=== PATIENT | female | born 1980 ===

== ENCOUNTER 2020-03-20 12:01 | Outpatient (REF) | payer OTHER, SELFPAY ==
[2020-03-20 13:23] LABS: MANUAL DIFF FLAG NO
[2020-03-20 13:35] LABS: Basophils Percent Auto 0.4 % (0-2); Eosinophils Absolute Auto 0.1 X10*3/uL (0.0-0.4); Eosinophils Percent Auto 0.7 % (0-4); Hematocrit 40.1 % (37-47); Hemoglobin 13.1 g/dl (12.0-16.0); Imm Gran Abs Auto 0.01 X10*3/uL (0.00-0.03); Imm Gran Pct Auto 0.1 % (0.0-0.4); Lymphocytes Absolute Auto 2.1 X10*3/uL (1.2-4.9); Lymphocytes Percent Auto 28.2 % (20-40); Mean Corpuscular HGB Conc 32.7 g/dl (31.0-35.0); Mean Platelet Volume 10.7 fL (9.4-12.3); Monocytes Absolute Auto 0.5 X10*3/uL (0.1-1.2); Monocytes Percent Auto 6.5 % (2-11); Neutrophils Absolute Auto 4.8 X10*3/uL (2.0-8.3); Neutrophils Percent Auto 64.1 % (45-73); Platelet Count 220 X10*3/uL (160-400); Red Blood Count 4.36 X10*6/uL (4.20-5.50); Red Cell Distribution Width 12.1 % (11.0-16.0); White Blood Count 7.5 X10*3/uL (4.8-10.8)
[2020-03-20 13:48] LABS: Estimated Average Glucose 103 mg/dL; Hemoglobin A1c % 5.2 %
[2020-03-20 14:08] LABS: Alanine Aminotransferase 18 U/L (0-31); Alkaline Phosphatase 115 U/L (39-117); Anion Gap 13 (12-20); Aspartate Amino Transferase 20 U/L (5-31); Bilirubin Total 0.5 mg/dL (0.0-1.0); Blood Urea Nitrogen 15 mg/dL (9-16); C Reactive Protein 1.18 mg/dL (< or = 0.50); Calcium 8.9 mg/dL (8.4-10.2); Carbon Dioxide 29 mmol/L (22-29); Chloride 104 mmol/L (96-108); Cholesterol 209 mg/dL; Estimated Glomerular Filt Rate > 60; Glucose Random 75 mg/dL (60-115); HDL Cholesterol 56 mg/dL; Iron 112 mcg/dL (30-160); LDL Cholesterol Calculated 140 mg/dl; Percent Iron Saturation 32 % (15-50); Potassium 3.9 mmol/l (3.3-5.1); Sodium 142 mmol/L (135-145); Total Iron Binding Capacity 346 mcg/dL (228-428); Triglycerides 65 mg/dL; Unsaturated Iron Binding 234 ug/dL
[2020-03-20 14:31] LABS: Ferritin 26 ng/mL (10-122); TSH reflex Free T4 0.88 mIU/mL (0.32-4.0); Vitamin D 25-OH Total 16.5 ng/mL (>30)
[2020-03-20 14:40] LABS: Folate 19.8 ng/mL (> or = 4.0); Vitamin B12 670 pg/mL (200-900)
[2020-03-23 19:11] LABS: Calcium (PTHI) 9.3 mg/dL (8.6-10.2); Insulin Level Total 3.4 uIU/mL; PTHI 42 pg/mL (14-64)
[2020-03-23 19:12] LABS: Zinc 69 mcg/dL (60-130)
[2020-03-25 17:32] LABS: Vitamin A 38 mcg/dL (38-98)
[2020-03-26 11:42] LABS: Vitamin B1 11 nmol/L (8-30)
== END 2020-03-20 12:02 | disposition home or self-care (01) ==
LOC: HO.LAB 12:01
PROVIDERS: PCP Internal Medicine; Visit Provider Physician Assistant
DX: Z98.84 Bariatric surgery status (principal)
CPT/HCPCS: 36415; 80053; 80061; 82306; 82607; 82728; 82746; 83036; 83525; 83540; 83970; 84425; 84443; 84590; 84630; 85025; 86140

== ENCOUNTER 2020-04-27 16:20 | Outpatient (REF) | payer OTHER, SELFPAY | END 2020-04-27 16:21 | disposition home or self-care (01) | LOC: HO.LAB 16:20 | PROVIDERS: Visit Provider Internal Medicine | DX: Z20.828 Contact with and (suspected) exposure to other viral communicable diseases (principal) | CPT/HCPCS: C9803; U0003 ==

== ENCOUNTER → 2020-05-21 08:18 | Outpatient (BNVA) | payer OTHER, SELFPAY | PROVIDERS: PCP Internal Medicine; Visit Provider Physician Assistant | DX: Z76.89 Persons encountering health services in other specified circumstances (principal) ==

== ENCOUNTER → 2020-06-11 08:11 | Outpatient (BNVA) | payer OTHER, SELFPAY | PROVIDERS: PCP Internal Medicine; Visit Provider Dietitian, Registered ==

== ENCOUNTER → 2020-08-12 08:11 | Outpatient (BNVA) | payer OTHER, SELFPAY | PROVIDERS: PCP Internal Medicine; Visit Provider Physician Assistant ==

== ENCOUNTER 2020-09-21 13:50 | Outpatient (REF) | payer OTHER, SELFPAY ==
--- NOTE | ~2020-09-21 | MM_ITS ---
EXAMINATION: MM DIAGNOSTIC DIGITAL BREAST TOMOSYNTHESIS, BILATERAL US DIAGNOSTIC ULTRASOUND BREAST, RIGHT CLINICAL INFORMATION: 40-year-old lactating breast-feeding patient with recent right areolar/periareolar pain. No symptoms today. No palpable mass. No known family history breast cancer. No prior mammography. The lifetime risk of breast cancer based on the Tyrer-Cuzick Model is 10%. COMPARISON: None (current study represents initial baseline exam). TECHNIQUE: Digital breast tomosynthesis is performed in both the craniocaudal and mediolateral oblique views along with computer-aided detection (CAD). Synthesized 2D images are generated from the tomosynthesis. Patient is breast-fed within 45 minutes of breast imaging. Ultrasound right breast is targeted to the retroareolar and periareolar region. Additional imaging also performed along the medial breast in area of prominent venous drainage. Grayscale imaging and color Doppler are performed without and with harmonics. FINDINGS: The breasts are heterogeneously dense, which may obscure small masses (ACR BI-RADS breast composition Category c). There are no significant masses, abnormal calcifications, or other abnormalities. No skin thickening or coarsening of the Pablo's ligaments. There is incidental prominent draining vein medial right breast. The axilla are unremarkable. Ultrasound demonstrates mildly prominent subareolar ducts up to 4 mm consistent with the lactating state. There is no intraductal lesion or cystic or solid mass. No skin thickening or edema tracking in the soft tissues. Additional imaging medial right breast shows patent prominent draining vein with normal color flow. No thrombophlebitis. Results are discussed with the patient at time of visit. Patient notes no symptoms today. Management options discussed in the event symptoms return. MM/MM tomosynthesis diagnostic BI IMPRESSION: 1. No mammographic evidence of malignancy or inflammatory changes.. 2. Unremarkable right breast ultrasound. ASSESSMENT: BI-RADS 2: Benign RECOMMENDATION: 1. Patient should be managed based on the clinical impression. 2. Otherwise, routine annual screening mammography. This patient's information was entered into a reminder system with a target due date for their next mammogram.
== END 2020-09-21 13:51 | disposition home or self-care (01) ==
LOC: HO.MAMMO 13:50
PROVIDERS: Visit Provider Internal Medicine
DX: N64.4 Mastodynia (principal)
CPT/HCPCS: 76642; 77062; 77066

== ENCOUNTER 2020-10-27 12:42 | Outpatient (REF) | payer OTHER, SELFPAY ==
[2020-10-27 14:41] LABS: Alanine Aminotransferase 12 U/L (0-31); Albumin Level 3.9 g/dL (3.5-5.0); Alkaline Phosphatase 96 U/L (39-117); Anion Gap 11 (12-20); Aspartate Amino Transferase 18 U/L (5-31); Bilirubin Total 0.6 mg/dL (0.0-1.0); Blood Urea Nitrogen 17 mg/dL (9-16); Calcium 9.5 mg/dL (8.4-10.2); Carbon Dioxide 29 mmol/L (22-29); Chloride 107 mmol/L (96-108); Cholesterol 169 mg/dL; Estimated Glomerular Filt Rate > 60; Glucose Fasting 73 mg/dL (60-99); HDL Cholesterol 47 mg/dL; LDL Cholesterol Calculated 111 mg/dl; Potassium 4.5 mmol/L (3.3-5.1); Sodium 142 mmol/L (135-145); Total Protein 6.6 g/dL (6.5-8.0); Triglycerides 59 mg/dL
[2020-10-27 15:04] LABS: Vitamin D 25-OH Total 18.1 ng/mL (>30)
== END 2020-10-27 12:43 | disposition home or self-care (01) ==
LOC: HO.LAB 12:42
PROVIDERS: Physician Assistant; PCP Internal Medicine; Visit Provider Internal Medicine
DX: E78.5 Hyperlipidemia, unspecified (principal); E66.3 Overweight; Z90.3 Acquired absence of stomach [part of]
CPT/HCPCS: 36415; 80053; 80061; 82306

== ENCOUNTER 2020-10-29 17:18 | Inpatient (IN) | payer OTHER, SELFPAY ==
--- NOTE | ~2020-10-29 | CT_ITS ---
EXAMINATION: CT HEAD WITHOUT CONTRAST (STROKE PROTOCOL) CLINICAL INFORMATION: Stroke protocol. COMPARISON: Previous head CT most recent October 2017 TECHNIQUE: Contiguous axial imaging was performed from the skull base to vertex without intravenous administration of contrast. This CT examination was performed using dose optimization techniques as appropriate, variously including the following: *Automated exposure control *Adjustment of mA and/or kV according to patient size (this includes techniques or standardized protocols for targeted exams where dose is matched to indication/reason for exam; i.e. extremities or head) *Use of iterative reconstruction technique DLP: 648 mGy-cm FINDINGS: There is no intracranial hemorrhage, hematoma, or extra-axial fluid collection. The ventricles are normal in size. There is no hydrocephalus, edema, or mass effect. The sanders-white matter differentiation appears symmetric. There is no acute infarct or mass lesion. The calvarium appears intact. There is no pneumocephalus or orbital emphysema. The visualized sinuses and middle ears and mastoid air cells show no significant mucosal thickening. There are no air-fluid levels. CT/CT head for stroke IMPRESSION: No acute intracranial pathology. This critical result was discussed with Placido Kc at 6:25 PM hours on 10/29/2020. It was ascertained that the content and urgency of the report was understood at the time of direct communication.
--- NOTE | ~2020-10-29 | CT_ITS ---
EXAMINATION: CT ANGIOGRAM OF THE HEAD CT ANGIOGRAM OF THE NECK CLINICAL INFORMATION: Left arm weakness and headache. COMPARISON: CT scan of the head also performed 10/29/2020. TECHNIQUE: Test bolus series followed by intravenous administration 70 mL of Omnipaque 350. Helical imaging was performed in the axial plane from the mediastinum to the skull vertex. A postcontrast axial CT scan of the head was obtained. The degree of stenosis is based off NASCET criteria. The data was processed at the instrument technologist workstation for generation of MIP images. Three-dimensional volume rendered reformatted images were also generated at an offline 3-D workstation. This CT examination was performed using dose optimization techniques as appropriate, variously including the following: *Automated exposure control *Adjustment of mA and/or kV according to patient size (this includes techniques or standardized protocols for targeted exams where dose is matched to indication/reason for exam; i.e. extremities or head) *Use of iterative reconstruction technique DLP: 1412 mGy-cm. FINDINGS: CT Head: There is no evidence of acute intracranial hemorrhage or territorial infarction. No abnormal mass-effect or midline shift is seen. Zarate to white matter differentiation is well preserved. No extra-axial fluid collections are identified. There is no abnormal enhancement. The ventricles are normal in size. There is a small cavum septum pellucidum. There is no abnormal attenuation within the brain parenchyma. The osseous structures and soft tissues are normal. The mastoid air cells and visualized portions of the paranasal sinuses are well-aerated. CTA Neck: There is a four-vessel aortic arch, and the left vertebral artery arises directly off the aorta which is a normal variant. The great vessels of the neck are widely patent. The subclavian arteries appear normal bilaterally. The common carotid arteries have normal caliber. The carotid bifurcations bilaterally appear normal. The internal carotid arteries in the neck bilaterally have uniform and normal caliber. The origins of both vertebral arteries are well seen and appear normal. Both vertebral arteries are widely patent and demonstrate good opacification throughout their cervical course. The left vertebral artery is minimally dominant. Nonvascular: The visualized upper lung alberto are well-aerated. The thyroid gland appears normal. There is no cervical lymphadenopathy. There is no significant spondylosis in the cervical spine. CTA Head: The intracranial internal carotid arteries and their bifurcations appear normal. The middle and anterior cerebral arteries bilaterally demonstrate normal caliber with no evidence of focal stenosis, aneurysm or vascular malformation. There is normal arborization of the middle cerebral artery branches. The anterior communicating artery is normal. In the posterior circulation, the intradural vertebral arteries are codominant. The vertebral arteries intradurally have normal caliber. The basilar artery appears normal. The posterior cerebral arteries have normal caliber. The venous sinuses opacify normally. CT/CT angio head neck stroke IMPRESSION: CT head and neck: 1. There are no acute bleeds or territorial infarcts. 2. There are no masses or areas of abnormal enhancement. 3. There is no cervical lymphadenopathy. The thyroid gland is normal in size. CTA head and neck: 1. The carotid and vertebral arteries are widely patent throughout their cervical course. The left vertebral artery arises directly off the aortic arch, which is a normal variant. 2. Intracranially, there are no focal stenoses, aneurysms or vascular malformations.
[2020-10-29 17:28] VITALS: BP 103/62; PULSE 70; RESP 18; TEMP 36.8; O2SAT 98; BMI 28.8
--- NOTE | 2020-10-29 17:56 | ED.GENADULT ---
HPI - General Adult General Chief complaint: Weakness Stated complaint: facial numbness - hand feels heavy Time Seen by Provider: 10/29/20 17:47 History of Present Illness HPI narrative: Patient complains of an abrupt onset headache with left extremity weakness and loss of sensation and tingling sensation along with a tingling sensation in her left side of the face The headache started abruptly and lasted for a brief period of time and has now mostly resolved her pain is very mild now, she has no difficulty forming words she never lost consciousness she had no weakness in either lower extremity and no weakness in the right arm, no photophobia no vision change She has a remote history of migraine which was different from this headache and was never accompanied by leg weakness Related Data Home Medications Medication Instructions Recorded Confirmed [id number]-[id number] 45 mg-folic cap PO 03/20/20 08/13/20 acid 800 mcg-vit K 120 mcg capsule Previous Rx's Medication Instructions Recorded calcium citrate 315 mg-vitamin D3 1 tab PO BID #60 tab 03/20/20 5 mcg (200 unit) tablet lansoprazole 30 mg capsule,delayed 30 mg PO DAILY #30 cap 05/14/20 release Allergies Allergy/AdvReac Type Severity Reaction Status Date / Time No Known Allergies Allergy Verified 10/29/20 17:28 [No Known Allergies*] Review of Systems Review of Systems: Positive for headache, left sided tingling in the face, numbness and motor weakness on the left upper extremity Negatives are no injury no fever no chills no fainting no feeling faint no loss of consciousness no vision changes no photophobia no difficulty forming words no dizziness no leg weakness no nausea or vomiting no stiff neck no chest pain no shortness of breath no palpitations no abdominal pain no nausea vomiting or diarrhea no dysuria no leg swelling no skin rash Yes all other systems are reviewed and are negative [facility] Past Medical History [facility] Narrative: Patient does have a history of migraines the last 1 3 or 4 years ago, the pattern of the migraines was in the past a right-sided or mid headache never associated with any weakness Source: nursing notes reviewed Medical History (Updated 10/29/20 @ 21:10 by CARMELA Barajas) Breast pain, right Epigastric pain History of tonsillitis Hx of dislocation of ankle Hx of endometritis Hx of migraines Surgical History H/O knee surgery History of sleeve gastrectomy Status post hysteroscopic ablation of endometrium Family History Family History (Updated 08/13/20 @ 15:44 by Denise Lew MD) Father No problems noted. Mother Diabetes mellitus Cervical cancer Daughter No problems noted. Daughter No problems noted. Brother Colon cancer Brother No problems noted. Sister No problems noted. Sister No problems noted. Sister No problems noted. Social History Social History Alcohol intake: never Patient Tobacco Use Status: Never used Tobacco Use of substances other than those prescribed or required for medical reasons: No Advance Directives: No Advance Directives Information Provided: No Patient : No Physical Exam Vital Signs: Vital Signs: Last Vital Signs Temp 98.3 F 10/29/20 17:28 Pulse 70 10/29/20 17:28 Resp 18 10/29/20 17:28 BP 103/62 10/29/20 17:28 Pulse Ox 98 10/29/20 17:28 Body Mass Index 28.8 General appearance is no acute distress, A&O x3 alert and communicative Head is normocephalic atraumatic The pupils are equal round and reactive to light Extraocular motions are intact Neck is supple and nontender The chest is clear to auscultation bilateral Heart no murmur auscultated The abdomen is soft nontender The extremities no swelling or deformity The neuro exam cranial nerves 2-12 are grossly intact, there is no facial asymmetry, communication both expression and communication are normal, voice is normal, gait and balance are normal Motor exam the left upper extremity has 1/5 strength she can certified medication aide and minimally lift the arm off the bed but significantly different than the other side which has normal full strength and range of motion Sensation is significantly decreased on the left side compared to the right Patient can walk on toes walk on heels and flex at the knees, she does have a pre-existing strength deficit on the left side since a knee surgery but says her strength is the same today as it has been normally NIH Stroke Scale Internal: Initial- Upon Arrival Level of Consciousness: Alert Level of Consciousness Questions: Answers both questions correctly Level of Consciousness Commands: Performs both tasks correctly Best Gaze: Normal Visual: No visual loss Facial Palsy: Normal Motor Arm (Right): No drift Motor Arm (Left): Some effort against gravity Motor Leg (Right): No drift Motor Leg (Left): No drift Limb Ataxia: Absent Sensory: Normal Best Language: No aphasia Dysarthia: Normal Extinction and Inattention: No abnormality Score: 2 Course Course Course Narrative: CT did not reveal any acute bleed or emergent pathology CTA was normal with no evidence of bleed mass or dissection The case was dust mohit with Dr. Edwards of Neurology who advised we are out of the window for thrombolytics, the patient symptoms started around 15:00 I saw the patient at 6 and the patient was out of the 3 hour window He asked me to confirm with radiologist that the CTA did not show any evidence of vertebral dissection, I called the radiologist who said there was no evidence on CT a of vertebral dissection Neurologist advised admit patient and get MRI MRA to rule out possibility of dissection Re-evaluated the patient 1 hour after I 1st saw her and there was significant improvement she could now flex and extend her wrist and had some certified medication aide strength but still could not lift her arm, certified medication aide was about 2/5 Every checked again an hour later and the patient could now flexor arm at the elbow and had significantly improved sensation and strength in the arm There was no significant lab abnormality, case was discussed with hospitalist and patient was admitted for rule out vertebral artery dissection and upper extremity weakness Medical Decision Making MDM Narrative Medical decision making narrative: EKG was a normal sinus rhythm with normal intervals, there were no acute ST changes no acute ischemic changes no acute arrhythmias No acute lab abnormality and test was negative Lab Data Lab results reviewed: Yes I reviewed the patient's lab results. Result diagrams: 10/29/20 18:04 10/29/20 18:04 Labs: Lab Results 10/29/20 10/29/20 10/29/20 Range/Units 18:04 18:04 18:04 WBC 8.0 (4.8-10.8) X10*3/uL RBC 4.18 L (4.20-5.50) X10*6/uL Hgb 12.9 (12.0-16.0) g/dl Hct 38.4 (37-47) % MCV 91.9 (80-98) fL MCH 30.9 (27.0-33.0) pg MCHC 33.6 (31.0-35.0) g/dl RDW 12.5 (11.0-16.0) % Plt Count 213 (160-400) X10*3/uL MPV 10.5 (9.4-12.3) fL Immature Gran % (Auto) 0.2 (0.0-0.4) % Neut % (Auto) 56.5 (45-73) % Lymph % (Auto) 36.0 (20-40) % [place] % (Auto) 5.6 (2-11) % Eos % (Auto) 1.2 (0-4) % Baso % (Auto) 0.5 (0-2) % Lymph # (Auto) 2.9 (1.2-4.9) X10*3/uL [place] # (Auto) 0.5 (0.1-1.2) X10*3/uL Eos # (Auto) 0.1 (0.0-0.4) X10*3/uL Baso # (Auto) 0.0 (0.0-0.2) X10*3/uL Abs Immat Gran (auto) 0.02 (0.00-0.03) X10*3/uL Absolute Neuts (auto) 4.5 (2.0-8.3) X10*3/uL Absolute Nucleated RBC 0.000 (0.0-0.012) X10*3/uL Nucleated RBC % (auto) 0.0 (0.0-0.2) /100WBC PT 13.1 H (10.8-13.0) SEC INR 1.1 (0.9-1.1) APTT 38.7 H (24.1-38.0) SEC Sodium 142 (135-145) mmol/L Potassium 3.8 (3.3-5.1) mmol/L Chloride 108 (96-108) mmol/L Carbon Dioxide 27 (22-29) mmol/L Anion Gap 11 L (12-20) BUN 16 (9-16) mg/dL Creatinine 0.71 (0.5-1.4) mg/dL Estim Creat Clear Calc 101.4 Estimated GFR > 60 Random Glucose 100 (60-115) mg/dL Calcium 9.5 (8.4-10.2) mg/dL Phosphorus 3.3 (2.7-4.5) mg/dL Magnesium 2.1 (1.6-2.6) mg/dL Beta HCG, Quant < 2 mIU/mL Urine Test (NEGATIVE) COVID-19 (MICHEAL) (Negative) COVID-19 Clin Com 10/29/20 10/29/20 Range/Units 19:48 19:48 WBC (4.8-10.8) X10*3/uL RBC (4.20-5.50) X10*6/uL Hgb (12.0-16.0) g/dl Hct (37-47) % MCV (80-98) fL MCH (27.0-33.0) pg MCHC (31.0-35.0) g/dl RDW (11.0-16.0) % Plt Count (160-400) X10*3/uL MPV (9.4-12.3) fL Immature Gran % (Auto) (0.0-0.4) % Neut % (Auto) (45-73) % Lymph % (Auto) (20-40) % [place] % (Auto) (2-11) % Eos % (Auto) (0-4) % Baso % (Auto) (0-2) % Lymph # (Auto) (1.2-4.9) X10*3/uL [place] # (Auto) (0.1-1.2) X10*3/uL Eos # (Auto) (0.0-0.4) X10*3/uL Baso # (Auto) (0.0-0.2) X10*3/uL Abs Immat Gran (auto) (0.00-0.03) X10*3/uL Absolute Neuts (auto) (2.0-8.3) X10*3/uL Absolute Nucleated RBC (0.0-0.012) X10*3/uL Nucleated RBC % (auto) (0.0-0.2) /100WBC PT (10.8-13.0) SEC INR (0.9-1.1) APTT (24.1-38.0) SEC Sodium (135-145) mmol/L Potassium (3.3-5.1) mmol/L Chloride (96-108) mmol/L Carbon Dioxide (22-29) mmol/L Anion Gap (12-20) BUN (9-16) mg/dL Creatinine (0.5-1.4) mg/dL Estim Creat Clear Calc Estimated GFR Random Glucose (60-115) mg/dL Calcium (8.4-10.2) mg/dL Phosphorus (2.7-4.5) mg/dL Magnesium (1.6-2.6) mg/dL Beta HCG, Quant mIU/mL Urine Test NEGATIVE (NEGATIVE) COVID-19 (MICHEAL) Negative (Negative) COVID-19 Clin Com See Note Discharge Plan Discharge Clinical Impression: Headache, Left arm weakness Patient Disposition: Admitted As Inpatient
--- NOTE | 2020-10-29 17:57 | ECG_ITS ---
Test Reason : WEAKNESS Blood Pressure : / mmHG Vent. Rate : 060 BPM Atrial Rate : 060 BPM P-R Int : 150 ms QRS Dur : 078 ms QT Int : 430 ms P-R-T Axes : 027 052 039 degrees QTc Int : 430 ms Normal sinus rhythm Normal ECG When compared with ECG of 14-APR-2016 17:36, No significant change was found Referred By: Placido Kc Electronically Signed By:Luke Gan
--- NOTE | 2020-10-29 17:59 | PC.NURSE ---
Patient is ambulatory to the room complaining weakness. Pt states that around 3p she got a sudden bad headache while driving and left arm got heavy and she cannot raise it up over her head. 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 Pt not able to left leg as well as she can her right leg. Pt headache she had earlier is almost gone
[2020-10-29 18:14] LABS: MANUAL DIFF FLAG NO
[2020-10-29 18:15] LABS: Basophils Percent Auto 0.5 % (0-2); Eosinophils Absolute Auto 0.1 X10*3/uL (0.0-0.4); Eosinophils Percent Auto 1.2 % (0-4); Hematocrit 38.4 % (37-47); Hemoglobin 12.9 g/dl (12.0-16.0); Imm Gran Abs Auto 0.02 X10*3/uL (0.00-0.03); Imm Gran Pct Auto 0.2 % (0.0-0.4); Lymphocytes Absolute Auto 2.9 X10*3/uL (1.2-4.9); Mean Corpuscular HGB Conc 33.6 g/dl (31.0-35.0); Mean Corpuscular Hemoglobin 30.9 pg (27.0-33.0); Mean Corpuscular Volume 91.9 fL (80-98); Mean Platelet Volume 10.5 fL (9.4-12.3); Monocytes Absolute Auto 0.5 X10*3/uL (0.1-1.2); Monocytes Percent Auto 5.6 % (2-11); Neutrophils Absolute Auto 4.5 X10*3/uL (2.0-8.3); Neutrophils Percent Auto 56.5 % (45-73); Platelet Count 213 X10*3/uL (160-400); Red Blood Count 4.18 X10*6/uL (4.20-5.50); Red Cell Distribution Width 12.5 % (11.0-16.0)
[2020-10-29 18:20] LABS: INTERNATIONAL NORM RATIO 1.1 (0.9-1.1); Prothrombin Time 13.1 SEC (10.8-13.0)
[2020-10-29 18:22] LABS: Partial Thromboplastin Time 38.7 SEC (24.1-38.0)
[2020-10-29] MEDS: iohexoL 350 MG/ML 100 ML INFUS..BTL IV (18:22)
[2020-10-29 18:46] LABS: Anion Gap 11 (12-20); Blood Urea Nitrogen 16 mg/dL (9-16); Calcium 9.5 mg/dL (8.4-10.2); Carbon Dioxide 27 mmol/L (22-29); Chloride 108 mmol/L (96-108); Creatinine Clr Calc Pharmacy 101.4; Estimated Glomerular Filt Rate > 60; Glucose Random 100 mg/dL (60-115); Magnesium 2.1 mg/dL (1.6-2.6); Phosphorus 3.3 mg/dL (2.7-4.5); Potassium 3.8 mmol/L (3.3-5.1); Sodium 142 mmol/L (135-145)
[2020-10-29 18:53] LABS: HCG Quantitative < 2 mIU/mL
--- NOTE | 2020-10-29 19:33 | PC.NURSE ---
REPORT FROM EVELYN ORDOÑEZ/TRAVELER AT 19:00. PT WALKED INTO ER AFTER FEELING NEW LEFT SIDED UPPER EXTREMITY WEAKNESS AND UNABLE TO RAISE ARM UP. PT NEVER EXPERIENCED FACIAL DROOP OR CHANGES IN SPEECH. PT HAS CTA WITHOUT FINDINGS. PT HAS LEFT LEG WEAKNESS, BUT ATTRIBUTES THIS TO PRIOR FX. CARMELA GAYLE AT BEDSIDE AFTER JUST SPEAKING TO NEUROLOGIST. PT TO BE ADMITTED WITH PLANNED MRI IN NEXT 24 HOUR. PT NOT A CANDIDATE FOR TPA SINCE SHE IS OUT OF THE 4 HOUR WINDOW. PT REPORTS SHE HAD LEFT SIDED WEAKNESS OF UPPER EXTREMITY EARLIER THIS WEEK, WHICH RESOLVED WITH 30 MINUTES. PT CURRENTLY HAS CLEAR SPEECH AND EQUAL SMILE, NO FACIAL DROOP. PT STILL HAS WEAK LEFT SIDED CATALOGUE ILLUSTRATOR AND IS NOT ABLE TO RAISE LEFT ARM ABOVE CHEST.
[2020-10-29 19:59] LABS: UPreg QC Valid YES; Urine Pregnancy NEGATIVE (NEGATIVE)
[2020-10-29 20:10] LABS: COVID-19 Test Negative (Negative); IDNOW Serial# 08D9AD1C
--- NOTE | 2020-10-29 20:45 | PM.IMHP ---
History of Present Illness Date of Service: 10/29/20 Chief Complaint: Left upper extremity weakness 40-year-old female with a past medical history of gastric sleeve surgery, vitamin-D deficiency, GERD presented to the hospital with a chief complaint of left upper extremity weakness. Patient reported that around 3:00 a.m. this afternoon she was in the car and suddenly noticed she is not able to lift her left upper extremity and not able to keep it on the steering wheel; at the same time she noticed left-sided facial tingling and left upper extremity tingling with weakness; noted mild lightheadedness/dizziness and headache and brief blurry vision. Subsequently she came to the ER for further evaluation. Complains of pressure on the back of the neck. Patient reported she did not have any fall or trauma, did not lift any heavy weights, usually carries her [id number] kid for breast-feeding intermittently. Denies any chest pain palpitations. At the time of my interview patient reported that she still has left upper extremity weakness but had tingling in the left side of the face improved. Vision is normal. Denies any headaches or blurry visions. Review of all other systems is negative except mentioned above ER course: Per ER team patient on presentation noted to have 1/5 strength in the left upper extremity; decreased sensations on the left upper extremity; mildly decreased left facial sensations; no angle of mouth deviation, no uvular deviation; ; bilateral lower extremity stent is fairly okay; CT head and CT angio head and neck showed no acute findings. ER team discussed with Radiology who mentioned that they did not find any evidence of vertebral dissection; ER team also spoke to from Neurology as the patient's NIH stroke scale was 2. Armond discussion patient also was deemed to be not a candidate for tPA given out of window.; neurology recommended MRI and MRA. [facility] Medical History (Updated 10/30/20 @ 15:58 by Joaquina Edwards MD) Breast cancer Breast pain, right Epigastric pain Hepatitis History of tonsillitis Hx of dislocation of ankle Hx of endometritis Hx of migraines Family History (Updated 08/13/20 @ 15:44 by Denise Lew MD) Father No problems noted. Mother Diabetes mellitus Cervical cancer Daughter No problems noted. Daughter No problems noted. Brother Colon cancer Brother No problems noted. Sister No problems noted. Sister No problems noted. Sister No problems noted. Surgical History H/O knee surgery History of sleeve gastrectomy Status post hysteroscopic ablation of endometrium Social History Household Members: Spouse, Family and Children Housing: House Alcohol intake: never Patient Tobacco Use Status: Never used Tobacco service: No Current occupational status: unemployed Meds Allergies Allergy/AdvReac Type Severity Reaction Status Date / Time No Known Allergies Allergy Verified 10/29/20 17:28 [No Known Allergies*] Active Medications: Current Medications Generic Name Dose Route Start Last Admin Trade Name Freq PRN Reason Stop Dose Admin Atorvastatin Calcium 80 mg 10/30/20 21:00 Atorvastatin Calcium 80 Mg Tablet PO BEDTIME NATALIE Clopidogrel Bisulfate 75 mg 10/30/20 09:00 Clopidogrel Bisulfate 75 Mg Tablet PO DAILY NATALIE Magnesium Hydroxide 30 ml 10/29/20 20:37 Milk Of Magnesia 30 Ml Oral.Susp PO DAILY PRN Constipation Non-Formulary Medication 30 mg 10/30/20 09:00 Lansoprazole PO DAILY NATALIE Sodium Chloride 3 ml 10/30/20 00:00 0.9 % Sodium Chloride Flush 3 Ml Syringe IVFLUSH QSHIFT [facility] Home Medications Medication Instructions Recorded Confirmed Last Taken Type wnzlogze-uyofhouh-qoyi 45 mg-folic cap PO 03/20/20 08/13/20 Unknown History acid 800 mcg-vit K 120 mcg capsule Physical Exam Vital Signs and Narrative: Vital Signs: Last Vital Signs Temp 98.3 F 10/29/20 17:28 Pulse 70 10/29/20 17:28 Resp 18 10/29/20 17:28 BP 103/62 10/29/20 17:28 Pulse Ox 98 10/29/20 17:28 Body Mass Index 28.8 Gen: Appears be in no acute distress HEENT: NCAT, Moist mucosa. Pulmonary: Vesicular breath sounds, fair air entry CVS: Normal S1-S2 Abdomen: BS+, Soft, Nontender Extremities: Warm well perfused Neuro: Alert and awake. Left extremity has 2+ strength; decreased sensation on the left extremity compared to the right; sensations and strength on bilateral lower extremities has mild difference with decreased and in the left lower extremity-patient reports that is chronic and attributes to hernia surgery. Cranial nerves intact; sensations on the face equal bilaterally Results Labs CBC and Chem 7: 10/30/20 05:39 10/30/20 05:39 Labs: Laboratory Results - last 24 hr 10/29/20 10/29/20 10/29/20 18:04 18:04 18:04 MCV 91.9 MCH 30.9 MCHC 33.6 RDW 12.5 Plt Count 213 MPV 10.5 Immature Gran % (Auto) 0.2 Neut % (Auto) 56.5 Lymph % (Auto) 36.0 [place] % (Auto) 5.6 Eos % (Auto) 1.2 Baso % (Auto) 0.5 Lymph # (Auto) 2.9 [place] # (Auto) 0.5 Eos # (Auto) 0.1 Baso # (Auto) 0.0 Abs Immat Gran (auto) 0.02 Absolute Neuts (auto) 4.5 Absolute Nucleated RBC 0.000 Nucleated RBC % (auto) 0.0 PT 13.1 H INR 1.1 APTT 38.7 H Anion Gap 11 L Estim Creat Clear Calc 101.4 Estimated GFR > 60 Random Glucose 100 Calcium 9.5 Phosphorus 3.3 Magnesium 2.1 Beta HCG, Quant < 2 Urine Test COVID-19 (MICHEAL) COVID-19 Clin Com 10/29/20 10/29/20 19:48 19:48 MCV MCH MCHC RDW Plt Count MPV Immature Gran % (Auto) Neut % (Auto) Lymph % (Auto) [place] % (Auto) Eos % (Auto) Baso % (Auto) Lymph # (Auto) [place] # (Auto) Eos # (Auto) Baso # (Auto) Abs Immat Gran (auto) Absolute Neuts (auto) Absolute Nucleated RBC Nucleated RBC % (auto) PT INR APTT Anion Gap Estim Creat Clear Calc Estimated GFR Random Glucose Calcium Phosphorus Magnesium Beta HCG, Quant Urine Test NEGATIVE COVID-19 (MICHEAL) Negative COVID-19 Clin Com See Note Imaging Radiologist's Impressions: Impressions Head CT 10/29/20 18:00 IMPRESSION: No acute intracranial pathology. This critical result was discussed with Placido Kc at 6:25 PM hours on 10/29/2020. It was ascertained that the content and urgency of the report was understood at the time of direct communication. Head/Neck CTA 10/29/20 18:00 IMPRESSION: CT head and neck: 1. There are no acute bleeds or territorial infarcts. 2. There are no masses or areas of abnormal enhancement. 3. There is no cervical lymphadenopathy. The thyroid gland is normal in size. CTA head and neck: 1. The carotid and vertebral arteries are widely patent throughout their cervical course. The left vertebral artery arises directly off the aortic arch, which is a normal variant. 2. Intracranially, there are no focal stenoses, aneurysms or vascular malformations. Assessment and Plan (1) CVA (cerebral vascular accident): Status: Acute 40-year-old female with a past medical history of gastric sleeve surgery, GERD, vitamin-D deficiency presented to the hospital with a chief complaint of left upper extremity tingling/weakness/left facial tingling; concern for CVA; admitted for further management. CVA: Patient complained of left facial tingling and left upper extremity tingling/weakness-symptoms gradually improving. But still left upper extremity strength is 2+ CT head and CT angio head and neck showed no acute findings. Will give the patient on Plavix and statin. Will obtain TSH, hemoglobin A1c, lipid profile Echo with bubble study Dysphagia screen PT/OT eventually Neurology consult DVT prophylaxis: SCD boots Code status: Full code Quality Stroke Does the patient have a stroke diagnosis?: No VTE Prior VTE?: No VTE Risk Level:: Medical - moderate - high VTE Device Contraindication: N/A - Device Ordered VTE Drug Contraindication: Treatment Not Indicated
--- NOTE | 2020-10-29 21:12 | PC.NURSE ---
PT IS NURSING A 1 YEAR OLD, ASKED PERMISSION FOR CHILD TO COME TO ER FOR NURSING. OFFERED TO LET FAMILY BRING PUMP IN, BUT CHILD WILL NOT USE BOTTLE.
--- NOTE | 2020-10-29 21:56 | PC.NURSE ---
pt reports left arm feels better. pt still has decreased hand grasp on left and only able to raise to lower chest. pt still reports tingling on left side of neck. pt had left sided facial tingling this afternoonm but fully resolved. pt currently has pressure around left eye x 15 minutes.
--- NOTE | 2020-10-29 22:02 | PC.NURSE ---
pt refused ASA because she has a gastric sleeve. hospital will be notified.
[2020-10-29] MEDS: Clopidogrel Bisulfate 75 MG TABLET PO (22:11)
[2020-10-29 22:15] LABS: Troponin-I High Sensitivity < 3.5 ng/L (<3.5-17.0)
--- NOTE | 2020-10-29 22:17 | MHC.CM.PN ---
CM met with patient with medical massage therapist. Pt speaks/understands [place], does not. Sanitarian used. Pt lives with and 3 children. Pt is still nursing 16 month old. Pt admitted. L arm weakness. A&Ox3. No infarct or bleed on CT scan. Hx migranes. No DME. No services. PT/OT and neuro evaluations ordered. Pt aware. D/C plan pending recommendations. Pt would like to go home. to provide transportation. CM to follow for d/c needs.
--- NOTE | 2020-10-29 22:19 | PC.NURSE ---
TRIED TO CALL REPORT, NO ANSWER.
[2020-10-29 22:52] VITALS: BP 126/79; PULSE 71; RESP 18; TEMP 36.4; O2SAT 99
[2020-10-29] MEDS: 0.9 % Sodium Chloride Flush 3 ML SYRINGE IVFLUSH (23:00)
[2020-10-29 23:27] VITALS: BMI 28.4
[2020-10-29 23:47] VITALS: PULSE 71
[2020-10-30 03:09] VITALS: BP 106/62; PULSE 69; RESP 18; TEMP 36.5; O2SAT 97
[2020-10-30 03:45] VITALS: PULSE 69
[2020-10-30 06:22] LABS: MANUAL DIFF FLAG NO
[2020-10-30 06:30] LABS: Basophils Percent Auto 0.3 % (0-2); Eosinophils Absolute Auto 0.1 X10*3/uL (0.0-0.4); Eosinophils Percent Auto 1.7 % (0-4); Hematocrit 37.9 % (37-47); Hemoglobin 12.3 g/dl (12.0-16.0); Imm Gran Abs Auto 0.01 X10*3/uL (0.00-0.03); Imm Gran Pct Auto 0.1 % (0.0-0.4); Lymphocytes Percent Auto 42.6 % (20-40); Mean Corpuscular HGB Conc 32.5 g/dl (31.0-35.0); Mean Corpuscular Hemoglobin 30.1 pg (27.0-33.0); Mean Corpuscular Volume 92.7 fL (80-98); Mean Platelet Volume 10.7 fL (9.4-12.3); Monocytes Absolute Auto 0.5 X10*3/uL (0.1-1.2); Monocytes Percent Auto 7.1 % (2-11); Neutrophils Absolute Auto 3.4 X10*3/uL (2.0-8.3); Neutrophils Percent Auto 48.2 % (45-73); Platelet Count 203 X10*3/uL (160-400); Red Blood Count 4.09 X10*6/uL (4.20-5.50); Red Cell Distribution Width 12.4 % (11.0-16.0); White Blood Count 7.1 X10*3/uL (4.8-10.8)
[2020-10-30 06:54] LABS: Estimated Average Glucose 94 mg/dL; Hemoglobin A1c % 4.9 %
[2020-10-30 07:06] LABS: Cholesterol 159 mg/dL; HDL Cholesterol 49 mg/dL; LDL Cholesterol Calculated 101 mg/dl; Triglycerides 45 mg/dL
[2020-10-30 07:11] LABS: Anion Gap 11 (12-20); Blood Urea Nitrogen 18 mg/dL (9-16); Calcium 9.1 mg/dL (8.4-10.2); Carbon Dioxide 28 mmol/L (22-29); Chloride 108 mmol/L (96-108); Creatinine Clr Calc Pharmacy 108.4; Estimated Glomerular Filt Rate > 60; Glucose Random 78 mg/dL (60-115); Potassium 4.3 mmol/L (3.3-5.1); Sodium 143 mmol/L (135-145)
[2020-10-30 07:26] LABS: Thyroid Stimulating Hormone 0.79 uIU/mL (0.32-4.0)
[2020-10-30 07:39] VITALS: BP 102/63; PULSE 60; RESP 20; TEMP 36.5; O2SAT 99
[2020-10-30 07:41] VITALS: BP 102/63; PULSE 60; RESP 20; TEMP 36.2; O2SAT 99
[2020-10-30] MEDS: Famotidine 20 MG TABLET PO (08:25)
[2020-10-30] MEDS: Clopidogrel Bisulfate 75 MG TABLET PO (08:26)
[2020-10-30] MEDS: 0.9 % Sodium Chloride Flush 3 ML SYRINGE IVFLUSH ×2 (08:26→15:53)
--- NOTE | 2020-10-30 08:30 | CA_ITS ---
Transthoracic Echocardiogram Patient (Last, First, Middle): Sebastian Mariee, Gender: Female Date of : 1980 Age: 40 Procedure Date: 10/30/2020 Procedure Type: Transthoracic Echocardiogram [place] [facility] [place]: 160.02 cm Weight: 72.58 kg BSA: 1.76 m2 Heart Rate: bpm BP: 106 / 62 mmHg Documentation Lead: Referring MD: Miguel Angel Mckoy MD Symptoms: CVA Study Quality: Good ECG Rhythm: Sinus Conclusions: - Normal study Findings Left Ventricle Normal left ventricular size, thickness, systolic function, and wall motion. The visually estimated ejection fraction is between 55-60%. There is no evidence of regional wall motion abnormalities. Diastolic function is normal for age. Right Ventricle Normal right ventricular cavity size and systolic function. Atria Both atria are likely dilated. There is no evidence of interatrial shunt by agitated saline. Aortic Valve Normal aortic valve structure and function. There is no aortic valve stenosis. There is no aortic valve regurgitation. Mitral Valve Normal mitral valve structure and function. There is no mitral valve regurgitation. There is no mitral valve stenosis. Pulmonic Valve Normal pulmonic valve structure and function. There is no pulmonic valve regurgitation. Tricuspid Valve Normal tricuspid valve structure and function. There is no tricuspid valve regurgitation. Normal right atrial pressure. There is no evidence of pulmonary hypertension. Great Vessels The visualized portions of the pulmonary artery and branches are normal. Venous The inferior vena cava is normal in size and collapses greater than 50% with inspiration. Pericardium/Pleural There is no evidence of pericardial effusion. Measurements 2D Linear Measurements IVSd: 0.73 0.6-0.9/0.6-1.0 cm LVIDd: 4.97 3.9-5.3/4.2-5.9 cm LVIDd Index: 2.82 2.4-3.2/2.2-3.1 cm/m2 LVIDs: 3.20 2.0-3.6 cm LVPWd: 0.80 0.7-1.1 cm Ao Root: 2.80 2.1-3.5 cm LA Diam: 2.90 2.7-3.8/3.0-4.0 cm LAIDs Index: 1.65 1.5-2.3 cm/m2 LV Mass: 158.33 67-162/88-224 g LV Mass Index: 89.96 43-95/49-115 g/m2 LVOT Diam: 1.90 3.0+(-)1.3 cm Mitral Valve MV Pk E: 0.72 MV PK A: 0.45 MV Decel Time: 235.00 E/A: 1.60 E'Lateral: 15.70 E'Medial: 10.20 E/E' Med: 7.10 E/E' Lat: 4.60 PHT: 69.00 MVA PHT: 3.19 Decel [place]: 3.06 Aortic Valve AoV Pk Mason: 1.31 AoV Mn Mason: 0.76 AoV VTI: 0.29 AoV Pk Grad: 7.00 Aov Mn Grad: 3.00 CHRISTOPHER Cont.VTI: 2.53 LVOT LVOT Pk Mason: 1.10 LVOT Mn Mason: 0.71 LVOT VTI: 0.26 LVOT Pk Grad: 5.00 LVOT Mn Grad: 2.00 LVOT Diam: 1.90 LVOT Area: 2.84 Diastolic Function MV Pk E: 0.72 MV Pk A: 0.45 E/A: 1.60 E'Medial: 10.20 E/E' Med: 7.10 E' Laterial: 15.70 E/E' Lat: 4.60 Tricuspid Valve TR Pk Mason: 1.71 TR Pk Grad: 12.00 RA Press: 3.00 RVSP: 15.00 Great Vessels Aorta Ao Root-2D: 2.80 2.0-3.7 cm Pulmonary Valve PV Pk Mason: 0.76 Peak PV Grad: 2.00 Updated in Other Vendor System with Status of Final Luke Gan MD electronically signed on 10/30/2020 3:21:03 PM with status of Final
[2020-10-30] MEDS: Acetaminophen 325 MG TABLET 650 MG PO (11:17)
[2020-10-30] MEDS: ondansetron HCL 4 MG/2 ML VIAL IVPUSH (11:17)
--- NOTE | 2020-10-30 11:44 | MHC.SL.SWA ---
Speech Pathologist Impression: Within Functional Limits Risk of Aspiration Due to: NA Dysphasia Diet Status: No Change Liquid Consistency and Strategies for Safe Swallow: Liquid Intake Recommendation: THIN Solid Food Consistency: Dietary Recommendations: Regular Oral Medication Intake: Whole with Liquid Recommendation for Speech: NA:Typical Evaluation Comment: Patient was able to feed herself without difficulty. Patient tolerated pureed solids (applesauce) and regular solid (saltine crackers) with no overt s/s of aspiration and good oral clearance. Intact rotary chew and timely oral preparatory phase. Patient tolerated thin liquids by cup with no overt s/s of aspiration. Good labial seal with no anterior loss of bolus. No change in vocal quality. Upon palpation, complete laryngeal elevation. Radio Program Checker Clinican/Clinical Fellow: No Supervisory Statement: I have reviewed and agree with the student/clinical fellow's documentation: N/A Speech Language Pathologist: Kim Morales M.A., CCC-ANIMAL COP
[2020-10-30 12:00] VITALS: BP 109/62; PULSE 66; RESP 20; TEMP 36.6; O2SAT 99
--- NOTE | 2020-10-30 14:29 | MHC.STROKE ---
Addendum entered by Hazel Bloom RN 10/30/20 15:08: SHE ALSO C/O DIFFICULTY SWALLOWING. Original Note: I MET WITH PATIENT TODAY TO PROVIDE STROKE EDUCATION. SHE EXPLAINED THAT YESTERDAY AT AROUND 3:00 - 3:30 SHE DEVELOPED SUDDEN ONSET OF LEFT FACE NUMBNESS AND BLURRED VISION TO THE LEFT EYE THAT LASTED ONLY A FEW MINUTES. SHE ALSO HAD LEFT ARM HEAVINESS THAT PERSISTED, SHE RECEIVED A CT AND CTA H/N, THE ED PA DISCUSSED THE CASE WITH DR NEGRETE. SEE HIS NOTE. SINCE YESTERDAY THE HAS WEAKNESS HAS IMPROVED SINCE TAKING THE PLAVIX. SHE ALSO C/O OF HEADACHE AND TENSION ALONG THE LEFT SIDE OF HER NECK. SHE HAS A 16 MONTH OLD AND EXPLAINED THAT SHE WASN'T SURE IF IT BECAUSE OF THE WAY SHE CARRIES HIM. THE SAME LEFT ARM HEAVINESS HAPPENED A WEEK PRIOR BUT WENT AWAY. SHE CANNOT TAKE ASPIRIN DUE TO GASTRIC SURGERY, THEREFORE SHE IS ON PLAVIX. I DISCUSSED HER RISK FACTORS AND SHE HAS A FAMILY HISTORY OF STROKE AND HEART DISEASE WITH HIGH CHOLESTEROL. SHE ALSO HAS A HISTORY OF MIGRAINES. SHE HAS A 12 YEAR OLD, A 15 YEAR OLD AND 16 MONTH OLD. I EXPLAINED THE VARIOUS TESTS THAT WERE DONE, THE ECHO AND NOW ECHO WITH BUBBLE THAT IS NOW NEEDING TO BE DONE, I USED PICTURES AND BOOKLETS TO EXPLAIN EVERYTHING AND REASSURE HER. SHE DOES WANT TO SEE THE NEUROLOGIST BEFORE SHE LEAVES TODAY, HE CAME EARLIER BUT SHE WAS AT A TEST. I DID RELAY THIS INFORMATION TO DR NEGRETE AND THE PA EZEQUIEL JAY. SHE IS WILLING TO PARTICIPATE IN WHATEVER PLAN WE HAVE ESTABLISHED. DR NEGRETE WOULD LIKE TO SEE HER AN OUTPATIENT IN HIS OFFICE A FOLLOW UP. I i WILL CONTINUE TO FOLLOW HER WELL.
--- NOTE | 2020-10-30 14:50 | P.PNIM_ITS ---
Subjective Subjective Date of Service: 10/30/20 Interval History: seen and examined this morning follow up for left arm weakness and facial numbness Reports improvement in left arm weakness but not complete resolution Headache improving Review of Systems Review of Systems: Yes all other systems are reviewed and are negative Constitutional Constitutional: Denies chills and Denies fever(s) Cardiovascular Cardiovascular: Denies chest pain Respiratory Respiratory: Denies cough Gastrointestinal Gastrointestinal: Denies abdominal pain Physical Exam Vital Signs: Vital Signs: Last Vital Signs Temp 97.8 F 10/30/20 12:00 Pulse 66 10/30/20 12:00 Resp 20 10/30/20 12:00 BP 109/62 10/30/20 12:00 Pulse Ox 99 10/30/20 12:00 Body Mass Index 28.4 Const: Nutritional Appearance: well nourished Orientation/consciousness: patient oriented x3 HENMT: Head: Yes normocephalic and Yes atraumatic Eyes: Sclerae: sclerae normal Resp: Effort & Inspection: normal respiratory effort and no respiratory distress Cardio: Rate: regular rate Rhythm: regular rhythm GI: Palpation (GI): Soft to palpation and nontender Neuro: Other: lLUE 3/5 strength; RUE 5/5; tongue midline, face symmetrical. General: patient oriented x3 Objective Data Current Medications Generic Name Dose Route Start Last Admin Trade Name Freq PRN Reason Stop Dose Admin Acetaminophen 650 mg 10/30/20 11:02 10/30/20 11:17 Acetaminophen 325 Mg Tablet PO 650 mg Q6H PRN Administration Pain, Mild (Pain Scale 1-3) Atorvastatin Calcium 80 mg 10/30/20 21:00 Atorvastatin Calcium 80 Mg Tablet PO BEDTIME NATALIE Clopidogrel Bisulfate 75 mg 10/31/20 09:00 Clopidogrel Bisulfate 75 Mg Tablet PO DAILY NATALIE Famotidine 20 mg 10/30/20 09:00 10/30/20 08:25 Famotidine 20 Mg Tablet PO 20 mg BID NATALIE Administration Magnesium Hydroxide 30 ml 10/29/20 20:37 Milk Of Magnesia 30 Ml Oral.Susp PO DAILY PRN Constipation Ondansetron HCl 4 mg 10/30/20 11:01 10/30/20 11:17 Ondansetron Hcl 4 Mg/2 Ml Vial IVPUSH 4 mg Q8H PRN Administration Nausea Sodium Chloride 3 ml 10/30/20 00:00 10/30/20 08:26 0.9 % Sodium Chloride Flush 3 Ml Syringe IVFLUSH 3 ml QSHIFT NATALIE Administration Labs CBC & Chem 7: 10/30/20 05:39 10/30/20 05:39 Labs: Laboratory Results - last 24 hr 10/29/20 10/29/20 10/29/20 18:04 18:04 18:04 WBC 8.0 RBC 4.18 L Hgb 12.9 Hct 38.4 MCV 91.9 MCH 30.9 MCHC 33.6 RDW 12.5 Plt Count 213 MPV 10.5 Immature Gran % (Auto) 0.2 Neut % (Auto) 56.5 Lymph % (Auto) 36.0 [place] % (Auto) 5.6 Eos % (Auto) 1.2 Baso % (Auto) 0.5 Lymph # (Auto) 2.9 [place] # (Auto) 0.5 Eos # (Auto) 0.1 Baso # (Auto) 0.0 Abs Immat Gran (auto) 0.02 Absolute Neuts (auto) 4.5 Absolute Nucleated RBC 0.000 Nucleated RBC % (auto) 0.0 PT 13.1 H INR 1.1 APTT 38.7 H Sodium 142 Potassium 3.8 Chloride 108 Carbon Dioxide 27 Anion Gap 11 L BUN 16 Creatinine 0.71 Estim Creat Clear Calc 101.4 Estimated GFR > 60 Random Glucose 100 Estimat Average Glucose Hemoglobin A1c % Calcium 9.5 Phosphorus 3.3 Magnesium 2.1 Troponin I High Sens Triglycerides Cholesterol LDL Cholesterol, Calc HDL Cholesterol TSH Beta HCG, Quant < 2 Urine Test COVID-19 (MICHEAL) COVID-19 Clin Com 10/29/20 10/29/20 10/29/20 19:48 19:48 21:35 WBC RBC Hgb Hct MCV MCH MCHC RDW Plt Count MPV Immature Gran % (Auto) Neut % (Auto) Lymph % (Auto) [place] % (Auto) Eos % (Auto) Baso % (Auto) Lymph # (Auto) [place] # (Auto) Eos # (Auto) Baso # (Auto) Abs Immat Gran (auto) Absolute Neuts (auto) Absolute Nucleated RBC Nucleated RBC % (auto) PT INR APTT Sodium Potassium Chloride Carbon Dioxide Anion Gap BUN Creatinine Estim Creat Clear Calc Estimated GFR Random Glucose Estimat Average Glucose Hemoglobin A1c % Calcium Phosphorus Magnesium Troponin I High Sens < 3.5 Triglycerides Cholesterol LDL Cholesterol, Calc HDL Cholesterol TSH Beta HCG, Quant Urine Test NEGATIVE COVID-19 (MICHEAL) Negative [email or web address] See Note 10/30/20 10/30/20 10/30/20 05:39 05:39 05:39 WBC 7.1 RBC 4.09 L Hgb 12.3 Hct 37.9 MCV 92.7 MCH 30.1 MCHC 32.5 RDW 12.4 Plt Count 203 MPV 10.7 Immature Gran % (Auto) 0.1 Neut % (Auto) 48.2 Lymph % (Auto) 42.6 H [place] % (Auto) 7.1 Eos % (Auto) 1.7 Baso % (Auto) 0.3 Lymph # (Auto) 3.0 [place] # (Auto) 0.5 Eos # (Auto) 0.1 Baso # (Auto) 0.0 Abs Immat Gran (auto) 0.01 Absolute Neuts (auto) 3.4 Absolute Nucleated RBC 0.000 Nucleated RBC % (auto) 0.0 PT INR APTT Sodium Potassium Chloride Carbon Dioxide Anion Gap BUN Creatinine Estim Creat Clear Calc Estimated GFR Random Glucose Estimat Average Glucose 94 Hemoglobin A1c % 4.9 Calcium Phosphorus Magnesium Troponin I High Sens Triglycerides 45 Cholesterol 159 LDL Cholesterol, Calc 101 HDL Cholesterol 49 TSH 0.79 Beta HCG, Quant Urine Test COVID-19 (MICHEAL) [employer] 10/30/20 10/30/20 10/30/20 05:39 05:39 05:39 WBC RBC Hgb Hct MCV MCH MCHC RDW Plt Count MPV Immature Gran % (Auto) Neut % (Auto) Lymph % (Auto) [place] % (Auto) Eos % (Auto) Baso % (Auto) Lymph # (Auto) [place] # (Auto) Eos # (Auto) Baso # (Auto) Abs Immat Gran (auto) Absolute Neuts (auto) Absolute Nucleated RBC Nucleated RBC % (auto) PT INR APTT Sodium 143 Potassium 4.3 Chloride 108 Carbon Dioxide 28 Anion Gap 11 L BUN 18 H Creatinine 0.66 Estim Creat Clear Calc 108.4 Estimated GFR > 60 Random Glucose 78 Estimat Average Glucose Hemoglobin A1c % Calcium 9.1 Phosphorus Magnesium 2.0 Cancelled Troponin I High Sens Triglycerides Cancelled Cholesterol Cancelled LDL Cholesterol, Calc Cancelled HDL Cholesterol Cancelled TSH Beta HCG, Quant Urine Test COVID-19 (MICHEAL) COVID-19 Clin Com Quality Stroke Does the patient have a stroke diagnosis?: No VTE Prior VTE?: No VTE Risk Level:: Medical - moderate - high VTE Device Contraindication: N/A - Device Ordered VTE Drug Contraindication: Treatment Not Indicated Assessment and Plan (1) Left arm weakness: Status: Acute Assessment and Plan: This is a 40-year-old female with history of GERD, gastric sleeve who presented to the emergency room with left upper extremity weakness and left facial tingling admitted for further workup Left arm weakness admitted to rule out stroke. weakness improved but still not back to baseline, facial tingling resolved brain CT & head/neck cta negative, unfortunately unable to tolerate MRI -passed swallow eval. seen by PT/OT -continue Plavix (unable to have ASA due to gastric sleeve) -neurology consult pending -echo with bubble study done, result pending -if statin recommended by neurology pt would need education as CI in breast feeding dvt ppx - boots code status - full code attending: dr. lara
[2020-10-30 15:18] VITALS: BP 108/58; PULSE 68; RESP 18; TEMP 36.7; O2SAT 97
--- NOTE | 2020-10-30 15:54 | P.CNNE_ITS ---
History of Present Illness Data of Consult Service Date: 10/30/20 Primary Care Provider: Denise Lew MD 40 years old woman with past medical history of migraine type of headaches no not having frequent headaches recently developed a headache and associated symptoms yesterday. She said that she was outside in a car when her left hand became numb and weak. After little while she had similar feeling left side of her face. Then a mild headache started. At 1 point headache became more severe. She went home and was told by family members that she should come to emergency room. She had evaluation for stroke, which was negative and now she was feeling much better. She said that she woke up this morning with resolution of headaches and most of her symptoms. Review of Systems Review of Systems: No recent cold or flu-like symptoms. [facility] Past Medical History Medical History (Updated 10/30/20 @ 15:58 by Joaquina Edwards MD) Breast cancer Breast pain, right Epigastric pain Hepatitis History of tonsillitis Hx of dislocation of ankle Hx of endometritis Hx of migraines Family History Family History (Updated 08/13/20 @ 15:44 by Denise Lew MD) Father No problems noted. Mother Diabetes mellitus Cervical cancer Daughter No problems noted. Daughter No problems noted. Brother Colon cancer Brother No problems noted. Sister No problems noted. Sister No problems noted. Sister No problems noted. Surgical History Surgical History H/O knee surgery History of sleeve gastrectomy Status post hysteroscopic ablation of endometrium Social History Social History Household Members: Spouse, Family and Children Housing: House Alcohol intake: never Patient Tobacco Use Status: Never used Tobacco Use of substances other than those prescribed or required for medical reasons: No Currently Displaying Signs/Symptoms of Drug Intoxication Withdrawal: No Have you been hit, kicked, punched, or otherwise hurt by someone within the past year? If so, by whom?: No Do you feel safe in your current relationship?: Yes Is there a partner from a previous relationship who is making you feel unsafe now?: No Are you made to feel afraid or neglected: No Advance Directives: No Advance Directives Information Provided: No Do you have thoughts of harming others: None Do you have a plan to hurt others: No Plan Recently lost weight without trying: No Nutrition Risks: On aspiration precautions Patient : No : Yes Poor oral hygiene: No service: No Current occupational status: unemployed Meds Allergies Allergy/AdvReac Type Severity Reaction Status Date / Time No Known Allergies Allergy Verified 10/29/20 17:28 [No Known Allergies*] Active Medications: Current Medications Generic Name Dose Route Start Last Admin Trade Name Freq PRN Reason Stop Dose Admin Acetaminophen 650 mg 10/30/20 11:02 10/30/20 11:17 Acetaminophen 325 Mg Tablet PO 650 mg Q6H PRN Administration Pain, Mild (Pain Scale 1-3) Clopidogrel Bisulfate 75 mg 10/31/20 09:00 Clopidogrel Bisulfate 75 Mg Tablet PO DAILY NATALIE Famotidine 20 mg 10/30/20 09:00 10/30/20 08:25 Famotidine 20 Mg Tablet PO 20 mg BID NATALIE Administration Magnesium Hydroxide 30 ml 10/29/20 20:37 Milk Of Magnesia 30 Ml Oral.Susp PO DAILY PRN Constipation Ondansetron HCl 4 mg 10/30/20 11:01 10/30/20 11:17 Ondansetron Hcl 4 Mg/2 Ml Vial IVPUSH 4 mg Q8H PRN Administration Nausea Sodium Chloride 3 ml 10/30/20 00:00 10/30/20 15:53 0.9 % Sodium Chloride Flush 3 Ml Syringe IVFLUSH 3 ml QSHIFT NATALIE Administration Home Medications Medication Instructions Recorded Confirmed Last Taken Type [id number] 45 mg-folic cap PO 03/20/20 08/13/20 Unknown History acid 800 mcg-vit K 120 mcg capsule Physical Exam Vital Signs: Vital Signs: Last Vital Signs Temp 98.1 F 10/30/20 15:18 Pulse 68 10/30/20 15:18 Resp 18 10/30/20 15:18 BP 108/58 L 10/30/20 15:18 Pulse Ox 97 10/30/20 15:18 Body Mass Index 28.4 She is alert and awake with normal spontaneity of speech fluency comprehension and slightly anxious affect. Pupils are equal reactive to light and extraocular muscles are intact. Visual alberto are full to confrontation. Face is symmetr ical. There is mild left Pronator drift. Deep tendon reflexes are trace to absent with flexor plantars. Results Labs CBC & Chem 7: 10/30/20 05:39 10/30/20 05:39 Labs: Short CBC 10/29/20 10/30/20 Range/Units 18:04 05:39 WBC 8.0 7.1 (4.8-10.8) X10*3/uL Hgb 12.9 12.3 (12.0-16.0) g/dl Hct 38.4 37.9 (37-47) % Plt Count 213 203 (160-400) X10*3/uL BMP 10/29/20 10/30/20 18:04 05:39 Sodium 142 143 Potassium 3.8 4.3 Chloride 108 108 Carbon Dioxide 27 28 BUN 16 18 H Creatinine 0.71 0.66 Calcium 9.[address] scan of brain did not reveal any significant abnormality. CTA of brain and neck was unremarkable. Assessment and Plan (1) Migraine with aura: Status: Acute 40 years old woman who likely was having migraine with aura and complicated migraine syndrome. Overall description was typical of that. Her imaging has not reveal any significant pathology. She was quite claustrophobic and could not have MRI. At this time my recommendation is to start her on topiramate 25 mg 1 at night and she should use Fioricet 2 tablets q.day p.r.n.. She could make an appointment with our office, through her primary care physician for further guidance. Procedures Date of Service Date of Service: 10/30/20
--- NOTE | 2020-10-30 17:31 | P.DS_ITS ---
DS: Providers Provider Date of Service: 10/30/20 Date of admission: 10/29/20 20:37 Primary care physician: Denise Lew MD Consults: 10/29/20 20:39 Consult to Neurology Routine Consulting Provider: Joaquina Edwards Reason for consultation: CVA DS: Diagnosis Discharge Diagnosis (1) Migraine with aura: Status: Acute (2) Left arm weakness: Status: Acute DS: Medications Discharge Medications Home Medications: Home Medications Medication Instructions Recorded Confirmed dmixzyzz-aanuarux-jimt 45 mg-folic cap PO 03/20/20 08/13/20 acid 800 mcg-vit K 120 mcg capsule Previous Rx's Medication Instructions Recorded calcium citrate 315 mg-vitamin D3 1 tab PO BID #60 tab 03/20/20 5 mcg (200 unit) tablet lansoprazole 30 mg capsule,delayed 30 mg PO DAILY #30 cap 05/14/20 release DS: Summary Hospital Course Hospital Course: From H&P on day of admission: Chief Complaint: Left upper extremity weakness 40-year-old female with a past medical history of gastric sleeve surgery, vitamin-D deficiency, GERD presented to the hospital with a chief complaint of left upper extremity weakness. Patient reported that around 3:00 a.m. this afternoon she was in the car and suddenly noticed she is not able to lift her left upper extremity and not able to keep it on the steering wheel; at the same time she noticed left-sided facial tingling and left upper extremity tingling with weakness; noted mild lightheadedness/dizziness and headache and brief blurry vision. Subsequently she came to the ER for further evaluation. Complains of pressure on the back of the neck. Patient reported she did not have any fall or trauma, did not lift any heavy weights, usually carries her [id number] kid for breast-feeding intermittently. Denies any chest pain palpitations. At the time of my interview patient reported that she still has left upper extremity weakness but had tingling in the left side of the face improved. Vision is normal. Denies any headaches or blurry visions. Review of all other systems is negative except mentioned above ER course: Per ER team patient on presentation noted to have 1/5 strength in the left upper extremity; decreased sensations on the left upper extremity; mildly decreased left facial sensations; no angle of mouth deviation, no uvular deviation; ; bilateral lower extremity stent is fairly okay; CT head and CT angio head and neck showed no acute findings. ER team discussed with Radiology who mentioned that they did not find any evidence of vertebral dissection; ER team also spoke to from Neurology as the patient's NIH stroke scale was 2. Armond discussion patient also was deemed to be not a candidate for tPA given out of window.; neurology recommended MRI and MRA. Left upper extremity weakness. Patient was not deemed to be a candidate for tPA on admission. Brain CT was unremarkable. Left arm weakness seemed to be improving. She was started on Plavix, not aspirin due to history of gastric sleeve. Initially brain mra of head and neck was ordered but this was deemed not necessary according to Neurology given that cta of head and neck were negative. She was unable to have brain MRI due to severe claustrophobia. She had echo with bubble study which was negative for interatrial shunt. She was seen in consultation by Neurology who felt her symptoms represented complicated migraine with aura rather than stroke. He recommended discharge home with topiramate and Fioricet. The patient is currently breast-feeding and these medications are not safe while breast feeding. This was discussed with the patient. She was eager to return home to her family this evening and therefore elected to return home without migraine prophylaxis. She may use Tylenol as needed for headache. She will call to schedule follow-up for Neurology to determine safe migraine prophylaxis and treatment. This was discussed in detail with the patient and she is in agreement with the plan. She should call to schedule follow up appointment with PCP. Time Spent with Patient Time attestation: Total time spent providing and/or coordinating discharge services: Discharge coordination time: Greater than 30 minutes Quality: Stroke Does the patient have a stroke diagnosis?: No Physical Exam Vital Signs: Vital Signs: Last Vital Signs Temp 98.1 F 10/30/20 15:18 Pulse 68 10/30/20 15:18 Resp 18 10/30/20 15:18 BP 108/58 L 10/30/20 15:18 Pulse Ox 97 10/30/20 15:18 Body Mass Index 28.4 Const: Nutritional Appearance: well nourished Orientation/consciousness: patient oriented x3 HENMT: Head: Yes normocephalic and Yes atraumatic Eyes: Sclerae: sclerae normal Resp: Effort & Inspection: normal respiratory effort and no respiratory distress Cardio: Rate: regular rate Rhythm: regular rhythm GI: Palpation (GI): Soft to palpation and nontender Neuro: Other: lLUE 3/5 strength; RUE 5/5; tongue midline, face symmetrical. General: patient oriented x3 DS: Data Data Completed and Pending Labs on day of discharge: Laboratory Results - last 24 hr 10/29/20 10/29/20 10/29/20 18:04 18:04 18:04 WBC 8.0 RBC 4.18 L Hgb 12.9 Hct 38.4 MCV 91.9 MCH 30.9 MCHC 33.6 RDW 12.5 Plt Count 213 MPV 10.5 Immature Gran % (Auto) 0.2 Neut % (Auto) 56.5 Lymph % (Auto) 36.0 [place] % (Auto) 5.6 Eos % (Auto) 1.2 Baso % (Auto) 0.5 Lymph # (Auto) 2.9 [place] # (Auto) 0.5 Eos # (Auto) 0.1 Baso # (Auto) 0.0 Abs Immat Gran (auto) 0.02 Absolute Neuts (auto) 4.5 Absolute Nucleated RBC 0.000 Nucleated RBC % (auto) 0.0 PT 13.1 H INR 1.1 APTT 38.7 H Sodium 142 Potassium 3.8 Chloride 108 Carbon Dioxide 27 Anion Gap 11 L BUN 16 Creatinine 0.71 Estim Creat Clear Calc 101.4 Estimated GFR > 60 Random Glucose 100 Estimat Average Glucose Hemoglobin A1c % Calcium 9.5 Phosphorus 3.3 Magnesium 2.1 Troponin I High Sens Triglycerides Cholesterol LDL Cholesterol, Calc HDL Cholesterol TSH Beta HCG, Quant < 2 Urine Test COVID-19 (MICHEAL) COVID-19 Clin Com 10/29/20 10/29/20 10/29/20 19:48 19:48 21:35 WBC RBC Hgb Hct MCV MCH MCHC RDW Plt Count MPV Immature Gran % (Auto) Neut % (Auto) Lymph % (Auto) [place] % (Auto) Eos % (Auto) Baso % (Auto) Lymph # (Auto) [place] # (Auto) Eos # (Auto) Baso # (Auto) Abs Immat Gran (auto) Absolute Neuts (auto) Absolute Nucleated RBC Nucleated RBC % (auto) PT INR APTT Sodium Potassium Chloride Carbon Dioxide Anion Gap BUN Creatinine Estim Creat Clear Calc Estimated GFR Random Glucose Estimat Average Glucose Hemoglobin A1c % Calcium Phosphorus Magnesium Troponin I High Sens < 3.5 Triglycerides Cholesterol LDL Cholesterol, Calc HDL Cholesterol TSH Beta HCG, Quant Urine Test NEGATIVE COVID-19 (MICHEAL) Negative COVID-19 cVidya Com See Note 10/30/20 10/30/20 10/30/20 05:39 05:39 05:39 WBC 7.1 RBC 4.09 L Hgb 12.3 Hct 37.9 MCV 92.7 MCH 30.1 MCHC 32.5 RDW 12.4 Plt Count 203 MPV 10.7 Immature Gran % (Auto) 0.1 Neut % (Auto) 48.2 Lymph % (Auto) 42.6 H [place] % (Auto) 7.1 Eos % (Auto) 1.7 Baso % (Auto) 0.3 Lymph # (Auto) 3.0 [place] # (Auto) 0.5 Eos # (Auto) 0.1 Baso # (Auto) 0.0 Abs Immat Gran (auto) 0.01 Absolute Neuts (auto) 3.4 Absolute Nucleated RBC 0.000 Nucleated RBC % (auto) 0.0 PT INR APTT Sodium Potassium Chloride Carbon Dioxide Anion Gap BUN Creatinine Estim Creat Clear Calc Estimated GFR Random Glucose Estimat Average Glucose 94 Hemoglobin A1c % 4.9 Calcium Phosphorus Magnesium Troponin I High Sens Triglycerides 45 Cholesterol 159 LDL Cholesterol, Calc 101 HDL Cholesterol 49 TSH 0.79 Beta HCG, Quant Urine Test COVID-19 (MICHEAL) COVID-19 Landis+Gyr 10/30/20 10/30/20 10/30/20 05:39 05:39 05:39 WBC RBC Hgb Hct MCV MCH MCHC RDW Plt Count MPV Immature Gran % (Auto) Neut % (Auto) Lymph % (Auto) [place] % (Auto) Eos % (Auto) Baso % (Auto) Lymph # (Auto) [place] # (Auto) Eos # (Auto) Baso # (Auto) Abs Immat Gran (auto) Absolute Neuts (auto) Absolute Nucleated RBC Nucleated RBC % (auto) PT INR APTT Sodium 143 Potassium 4.3 Chloride 108 Carbon Dioxide 28 Anion Gap 11 L BUN 18 H Creatinine 0.66 Estim Creat Clear Calc 108.4 Estimated GFR > 60 Random Glucose 78 Estimat Average Glucose Hemoglobin A1c % Calcium 9.1 Phosphorus Magnesium 2.0 Cancelled Troponin I High Sens Triglycerides Cancelled Cholesterol Cancelled LDL Cholesterol, Calc Cancelled HDL Cholesterol Cancelled TSH Beta HCG, Quant Urine Test COVID-19 (MICHEAL) COVID-19 Clin Com Discharge Plan Discharge Patient Disposition: Home, Self-Care Discharge Diagnosis: Left arm weakness Migraine with aura Referrals: Denise Dsouza MD [Primary Care Provider] - 1 Week Discharge Medications: Continued lansoprazole 30 mg capsule,delayed release(DR/EC) 30 mg PO DAILY Qty: 30 RF: 6 Bariatric Multivitamins 45 mg iron- 800 mcg-120 mcg capsule PO RF: 0 calcium citrate-vitamin D3 [Calcium Citrate + D] 315 mg-5 mcg (200 unit) tablet 1 tab PO BID Qty: 60 RF: 11 Discharge Orders: Discharge Order (Routine); Ordered 10/30/20 Ordered By: Ju Saenz Activity on Discharge: As tolerated Stand Alone Forms: Patient Portal Discharge page Care Plan Goals: see below Health Concerns: Left arm weakness Migraine Plan of Treatment: Call to schedule follow up appointment with neurology Can check with OB to determine alternative plan for migraine prophylaxis and treatment. Assessment: see discharge summary
== END 2020-10-30 18:19 | disposition home or self-care (01) | DRG 54 ==
LOC: HO.ED 18:56 → HO.EDOVER 21:04 → HO.IMC 21:29
PROVIDERS: Physician Assistant Medical; Admitting Provider Hospitalist; Emergency Provider Emergency Medicine; PCP Internal Medicine; Visit Provider Family Medicine
DX: G43.109 Migraine with aura, not intractable, without status migrainosus (principal); G83.24 Monoplegia of upper limb affecting left nondominant side; Z98.84 Bariatric surgery status; Z79.899 Other long term (current) drug therapy
CPT/HCPCS: 36415; 70450; 70496; 70498; 80048; 80061; 81025; 83036; 83735; 84100; 84443; 84484; 84702; 85025; 85610; 85730; 87635; 93005; 93306; 97161; 97165; 99284; J2405; Q9967

== ENCOUNTER 2021-03-04 15:45 | Outpatient (REF) | payer OTHER, SELFPAY | END 2021-03-04 15:46 | disposition home or self-care (01) | LOC: HO.MAMMO 15:45 | PROVIDERS: PCP Internal Medicine; Visit Provider Obstetrics & Gynecology | DX: Z13.89 Encounter for screening for other disorder (principal) ==

== ENCOUNTER 2021-09-14 07:43 | Outpatient (REF) | payer OTHER, SELFPAY ==
--- NOTE | ~2021-09-14 | MM_ITS ---
EXAMINATION: MM SCREENING DIGITAL BREAST TOMOSYNTHESIS, BILATERAL CLINICAL INFORMATION: Screening. Asymptomatic. The lifetime risk of breast cancer based on the Tyrer-Cuzick Model is 10%. COMPARISON: Mammography: 09/21/2020 (baseline); ultrasound right breast 09/21/2020. TECHNIQUE: Digital breast tomosynthesis is performed in both the craniocaudal and mediolateral oblique views along with computer-aided detection (CAD). Synthesized 2D images are generated from the tomosynthesis. FINDINGS: The breasts are heterogeneously dense, which may obscure small masses (ACR BI-RADS breast composition Category c). There are no significant masses, abnormal calcifications, or other abnormalities. Breast tissue composition borders on average fibroglandular. Prominent draining vein medial right breast decreased from prior imaging. No developing density or architectural abnormality. The axilla are unremarkable. Skin contours are smooth. MM/MM tomosynthesis screening BI IMPRESSION: No mammographic evidence of malignancy. ASSESSMENT: BI-RADS 2: Benign RECOMMENDATION: Routine annual mammography screening. This patient's information was entered into a reminder system with a target due date for their next mammogram.
--- NOTE | ~2021-09-14 | XR_ITS ---
EXAMINATION: THORACIC SPINE AND KUB. CLINICAL INFORMATION: Calculus of kidney. COMPARISON: None TECHNIQUE: KUB. Thoracic spine 3 views. FINDINGS: THORACIC SPINE: There is normal thoracic kyphosis. There is minimal levoscoliosis. The vertebral heights, alignment and disc heights are normal. There is no visible acute fracture, dislocation or lytic process seen. The paravertebral soft tissues are normal. There are surgical deb seen in the left upper quadrant from previous intervention. KUB: There is moderate stool in the colon without any distention. There is no organomegaly. No radiopaque calculi. There are multiple surgical deb in the left upper quadrant. No gross bony abnormality seen. XR/XR thoracic spine 2V IMPRESSION: Mild levoscoliosis dorsal spine. No visible acute fracture or dislocation. Mild constipation. Postsurgical changes left upper quadrant from previous intervention.
--- NOTE | ~2021-09-14 | XR_ITS ---
EXAMINATION: THORACIC SPINE AND KUB. CLINICAL INFORMATION: Calculus of kidney. COMPARISON: None TECHNIQUE: KUB. Thoracic spine 3 views. FINDINGS: THORACIC SPINE: There is normal thoracic kyphosis. There is minimal levoscoliosis. The vertebral heights, alignment and disc heights are normal. There is no visible acute fracture, dislocation or lytic process seen. The paravertebral soft tissues are normal. There are surgical deb seen in the left upper quadrant from previous intervention. KUB: There is moderate stool in the colon without any distention. There is no organomegaly. No radiopaque calculi. There are multiple surgical deb in the left upper quadrant. No gross bony abnormality seen. XR/XR KUB IMPRESSION: Mild levoscoliosis dorsal spine. No visible acute fracture or dislocation. Mild constipation. Postsurgical changes left upper quadrant from previous intervention.
[2021-09-14 11:02] LABS: MANUAL DIFF FLAG NO
[2021-09-14 11:35] LABS: Basophils Percent Auto 0.4 % (0-2); Eosinophils Absolute Auto 0.1 X10*3/uL (0.0-0.4); Hematocrit 38.5 % (37.0-47.0); Hemoglobin 12.6 g/dl (12.0-16.0); Imm Gran Abs Auto 0.02 X10*3/uL (0.00-0.03); Imm Gran Pct Auto 0.3 % (0.0-0.4); Lymphocytes Absolute Auto 2.1 X10*3/uL (1.2-4.9); Lymphocytes Percent Auto 29.4 % (20-40); Mean Corpuscular HGB Conc 32.7 g/dl (31.0-35.0); Mean Corpuscular Hemoglobin 30.1 pg (27.0-33.0); Mean Corpuscular Volume 91.9 fL (80.0-98.0); Mean Platelet Volume 10.4 fL (9.4-12.3); Monocytes Absolute Auto 0.5 X10*3/uL (0.1-1.2); Monocytes Percent Auto 6.9 % (2-11); Neutrophils Absolute Auto 4.5 x10*3/uL (2.0-8.3); Platelet Count 227 X10*3/uL (160-400); Red Blood Count 4.19 X10*6/uL (4.20-5.50); Red Cell Distribution Width 12.5 % (11.0-16.0); White Blood Count 7.2 X10*3/uL (4.8-10.8)
[2021-09-14 12:11] LABS: Alanine Aminotransferase 13 U/L (0-31); Albumin Level 3.7 g/dL (3.5-5.0); Alkaline Phosphatase 86 U/L (39-117); Anion Gap 10 (12-20); Aspartate Amino Transferase 16 U/L (5-31); Bilirubin Total 0.4 mg/dL (0.0-1.0); Blood Urea Nitrogen 15 mg/dL (9-16); Carbon Dioxide 28 mmol/L (22-29); Chloride 106 mmol/L (96-108); Cholesterol 191 mg/dL; Estimated Glomerular Filt Rate > 60; Glucose Fasting 79 mg/dL (60-99); HDL Cholesterol 48 mg/dL; LDL Cholesterol Calculated 134 mg/dl; Sodium 140 mmol/L (135-145); Total Protein 6.7 g/dL (6.5-8.0); Triglycerides 48 mg/dL
[2021-09-14 12:22] LABS: Thyroid Stimulating Hormone 0.93 uIU/mL (0.32-4.0); Vitamin D 25-OH Total 16.2 ng/mL (>30)
== END 2021-09-14 07:44 | disposition home or self-care (01) ==
LOC: HO.LAB 07:43
PROVIDERS: PCP Internal Medicine; Visit Provider Internal Medicine
DX: Z00.00 Encounter for general adult medical examination without abnormal findings (principal); Z12.31 Encounter for screening mammogram for malignant neoplasm of breast; N20.0 Calculus of kidney; M54.6 Pain in thoracic spine; Z20.822 Contact with and (suspected) exposure to COVID-19; R29.898 Other symptoms and signs involving the musculoskeletal system; E66.3 Overweight; E55.9 Vitamin D deficiency, unspecified
CPT/HCPCS: 72070; 74018; 77063; 77067; 80053; 80061; 82306; 84443; 85025; U0003; U0005

== ENCOUNTER → 2021-11-05 13:02 | Outpatient (BNVA) | payer OTHER, SELFPAY | PROVIDERS: PCP Internal Medicine; Referring Provider Internal Medicine; Visit Provider Physician Assistant Surgical | DX: E66.9 Obesity, unspecified (principal); Z68.33 Body mass index [BMI] 33.0-33.9, adult; Z98.84 Bariatric surgery status | CPT/HCPCS: 99212 ==

== ENCOUNTER 2022-02-21 14:16 | Outpatient (REF) | payer OTHER, SELFPAY ==
--- NOTE | ~2022-02-21 | US_ITS ---
EXAMINATION: US VENOUS ULTRASOUND WITH DOPPLER LOWER EXTREMITY, RIGHT CLINICAL INFORMATION: Pain in right leg COMPARISON: None TECHNIQUE: Ultrasound of the deep veins is performed from the hip to the calf with compression sonography and color and pulse Doppler assessment. Spectral analysis with color-flow imaging is performed. FINDINGS: There is normal venous compression and respiratory variation and augmented flow. The visualized common femoral vein, superficial femoral vein, profunda femoral vein, popliteal vein, and the trifurcation region shows no evidence of deep venous thrombosis. There is no significant popliteal fossa cyst. If the patient's symptoms persist, followup ultrasound in 5 days 7 days might be of value to exclude proximal propagation from a non-visualized calf vein. US/US venous duplex LE RT IMPRESSION: No DVT demonstrated in the right lower extremity.
== END 2022-02-21 14:17 | disposition home or self-care (01) ==
LOC: HO.US 14:16
PROVIDERS: PCP Student in an Organized Health Care Education/Training Program; Visit Provider Internal Medicine
DX: R60.0 Localized edema (principal); M79.604 Pain in right leg
CPT/HCPCS: 93971

== ENCOUNTER 2022-03-16 11:49 | Emergency (ER) | payer OTHER, SELFPAY ==
--- NOTE | ~2022-03-16 | CT_ITS ---
EXAMINATION: CT ANGIOGRAM OF THE HEAD CT ANGIOGRAM OF THE NECK CLINICAL INFORMATION: Left arm/leg weakness. Assess for CVA. COMPARISON: CT scan of the head and CTA of the neck 10/29/2020. TECHNIQUE: A noncontrast axial CT scan of the head was obtained. Test bolus series followed by intravenous administration 70 mL of Omnipaque 350. Helical imaging was performed in the axial plane from the mediastinum to the skull vertex. A delayed CT scan of the head was obtained following intravenous contrast. The degree of stenosis is based off NASCET criteria. The data was processed at the molecular technologist workstation for generation of MIP images. Three-dimensional volume rendered reformatted images were also generated at an offline 3-D workstation. This CT examination was performed using dose optimization techniques as appropriate, variously including the following: *Automated exposure control *Adjustment of mA and/or kV according to patient size (this includes techniques or standardized protocols for targeted exams where dose is matched to indication/reason for exam; i.e. extremities or head) *Use of iterative reconstruction technique DLP: 2317 mGy-cm. FINDINGS: CT Head: There is no evidence of acute intracranial hemorrhage or territorial infarction. No abnormal mass-effect or midline shift is seen. Zarate to white matter differentiation is well preserved. No extra-axial fluid collections are identified. There is no abnormal enhancement. The ventricles and sulci are normal in size. The study demonstrates the cava septum pellucidum and vergae. There is no abnormal attenuation within the brain parenchyma. The osseous structures and soft tissues are normal. The mastoid air cells and visualized portions of the paranasal sinuses are well-aerated. CTA Neck: There is a 4 vessel aortic arch, and the left vertebral artery arises directly off the arch measures a normal variant. The great vessels of the neck are widely patent. The subclavian arteries appear normal bilaterally. The common carotid arteries have normal caliber. The carotid bifurcations bilaterally appear normal. The internal carotid arteries in the neck bilaterally have uniform and normal caliber. The origins of both vertebral arteries are well seen and appear normal. Both vertebral arteries are widely patent and demonstrate good opacification throughout their cervical course. The left vertebral artery is minimally dominant. Nonvascular: The visualized upper lung alberto are well aerated. The thyroid gland has slightly heterogenous attenuation. There is no cervical lymphadenopathy. There is no significant spondylosis or facet arthropathy. CTA Head: The intracranial internal carotid arteries and their bifurcations appear normal. The middle and anterior cerebral arteries bilaterally demonstrate normal caliber with no evidence of focal stenosis, aneurysm or vascular malformation. There is normal arborization of the middle cerebral artery branches. The anterior communicating artery is normal. In the posterior circulation, the vertebral arteries are codominant and have uniform caliber. The basilar artery appears normal. The posterior cerebral arteries have normal caliber. The venous sinuses opacify normally; the study demonstrates arachnoid granulations in the lateral right transverse sinus. CT/CT angio head neck IMPRESSION: CT head and neck: 1. There are no acute bleeds or territorial infarcts. 2. There are no masses or areas of abnormal enhancement. 3. There is no cervical lymphadenopathy and no masses are demonstrated in the neck. CTA head and neck: 1. The left vertebral artery arises directly off the aortic arch which is a normal variant. 2. The upper thoracic and cervical vessels have normal caliber without evidence of flow-limiting stenosis. 3. Intracranially there are no focal stenoses, aneurysms or vascular malformations. This critical result was discussed with CARMELA Salgado by telephone on 03/16/2022 at 10:05 PM and it was ascertained that the content and urgency of the report was understood at the time of direct communication.
--- NOTE | ~2022-03-16 | XR_ITS ---
EXAMINATION: XR CHEST CLINICAL INFORMATION: Question pneumonia COMPARISON: 10/10/2017 TECHNIQUE: Frontal view of the chest was obtained. FINDINGS: No convincing evidence for an acute process. Generalized opacity over the mid to lower lung zones are grossly due to overlying soft tissue. Lung alberto are grossly clear. The cardiac silhouette is not enlarged. The hilar regions are comparable. XR/XR chest 1V IMPRESSION: No acute finding.
--- NOTE | 2022-03-16 11:52 | ECG_ITS ---
Test Reason : chest pressure Blood Pressure : / mmHG Vent. Rate : 078 BPM Atrial Rate : 078 BPM P-R Int : 138 ms QRS Dur : 076 ms QT Int : 398 ms P-R-T Axes : 028 049 036 degrees QTc Int : 453 ms Normal sinus rhythm with sinus arrhythmia Normal ECG When compared with ECG of 29-OCT-2020 18:44, No significant change was found Referred By: Generic ED Physician Electronically Signed By:RAFFI LEDEZMA MD
[2022-03-16 13:18] VITALS: BP 111/71; PULSE 87; RESP 16; TEMP 36.7; O2SAT 99; BMI 34.2
--- NOTE | 2022-03-16 13:22 | ED.CHESTPAIN ---
HPI - Chest Pain General Chief Complaint: Chest Pain Stated Complaint: Chest Pressure L Arm Heavy Time Seen by Provider: 03/16/22 19:45 Related Data Previous Rx's Medication Instructions Recorded citalopram 10 mg tablet 10 mg PO DAILY 90 days #90 tabs 11/12/21 calcium citrate 315 mg-vitamin D3 1 tab PO BID #60 tabs 02/21/22 5 mcg (200 unit) tablet (Calcium Citrate + D) cholecalciferol (vitamin D3) 50 50 mcg PO DAILY #30 caps 02/21/22 mcg (2,000 unit) capsule lansoprazole 30 mg capsule,delayed 30 mg PO DAILY #30 caps 02/21/22 release fdhfjkef-ywdidizs-ofna 45 mg-folic 1 cap PO .once a day 90 days #90 02/21/22 acid 800 mcg-vit K 120 mcg capsule caps (Bariatric Multivitamins) cholecalciferol (vitamin D3) 50 50 mcg PO DAILY 90 days #90 caps 02/24/22 mcg (2,000 unit) capsule Allergies Allergy/AdvReac Type Severity Reaction Status Date / Time No Known Allergies Allergy Verified 02/21/22 12:30 [No Known Allergies*] [facility] Past Medical History Medical History Anxiety Breast pain, right Encounter for physical examination Epigastric pain Hepatitis History of tonsillitis Hx of dislocation of ankle Hx of endometritis Hx of migraines Renal calculi Thoracic spine pain Surgical History H/O knee surgery History of sleeve gastrectomy Status post hysteroscopic ablation of endometrium Family History Family History Father No problems noted. Mother Diabetes mellitus Cervical cancer Daughter No problems noted. Daughter No problems noted. Brother Colon cancer Brother No problems noted. Sister No problems noted. Sister No problems noted. Sister No problems noted. Social History Social History Household Members: Spouse, Family and Children Housing: House Alcohol intake: never Patient Tobacco Use Status: Never used Tobacco e-Cigarette/Vaping Use: Never Used Second Hand Smoke Exposure: No Advance Directives: No Advance Directives Information Provided: Yes service: No Current occupational status: unemployed Cognitive needs: No Hearing needs: No Vision needs: No Physical Exam Vital Signs: Vital Signs: Last Vital Signs Temp 98.5 F 03/16/22 19:46 Pulse 79 03/16/22 19:46 Resp 18 03/16/22 19:46 BP 138/86 03/16/22 19:46 Pulse Ox 99 03/16/22 19:46 O2 Del Method 03/16/22 19:46 BMI result Body Mass Index 34.2 Course Course Course Narrative: GERMAINE. pATIENT PREESNTING TO THe ed FOR CHEST PAIN NECK AND LEFT UPPER EXTREMITY PAIN SINCE YESTERDAY. PATIENT DESCRIBES CHEST PAIN PRESSURE. pAIENT VITAL SIGNS ARE STABLE. ekg NEGATIVE StEmi. lABS INCLUDING TROPONIN ORDERED. cHEST XRAY ORDERED Medications Administered Discontinued Medications Generic Name Dose Route Start Last Admin Trade Name Freq PRN Reason Stop Dose Admin Diphenhydramine HCl 25 mg 03/16/22 20:37 03/16/22 21:44 Diphenhydramine Hcl 50 Mg/Ml Vial IVPUSH 03/16/22 20:38 25 mg ONCE ONE Administration Sodium Chloride 1,000 mls @ 999 mls/hr 03/16/22 20:45 03/17/22 00:05 Ns IV 03/16/22 21:45 Infused .Q1H1M NATALIE Infusion Iohexol 100 ml 03/16/22 21:20 03/16/22 21:21 Iohexol 350 Mg/Ml 100 Ml Infus..Btl IV 03/16/22 21:21 70 ml ONCE ONE Administration Metoclopramide HCl 10 mg 03/16/22 20:37 03/16/22 21:44 Metoclopramide Hcl 10 Mg/2 Ml Vial IVPUSH 03/16/22 20:38 10 mg ONCE ONE Administration MDM - Chest Pain Lab Data Result diagrams: 03/16/22 15:27 03/16/22 15:27 Labs: Lab Results 03/16/22 03/16/22 03/16/22 Range/Units 15:24 15:27 15:27 WBC 8.4 (4.8-10.8) X10*3/uL RBC 4.47 (4.20-5.50) X10*6/uL Hgb 13.3 (12.0-16.0) g/dl Hct 40.4 (37.0-47.0) % MCV 90.4 (80.0-98.0) fL MCH 29.8 (27.0-33.0) pg MCHC 32.9 (31.0-35.0) g/dl RDW 12.7 (11.0-16.0) % Plt Count 268 (160-400) X10*3/uL MPV 9.5 (9.4-12.3) fL Immature Gran % (Auto) 0.1 (0.0-0.4) % Neut % (Auto) 64.6 (45-73) % Lymph % (Auto) 28.7 (20-40) % [place] % (Auto) 6.0 (2-11) % Eos % (Auto) 0.2 (0-4) % Baso % (Auto) 0.4 (0-2) % Lymph # (Auto) 2.4 (1.2-4.9) X10*3/uL [place] # (Auto) 0.5 (0.1-1.2) X10*3/uL Eos # (Auto) 0.0 (0.0-0.4) X10*3/uL Baso # (Auto) 0.0 (0.0-0.2) X10*3/uL Abs Immat Gran (auto) 0.01 (0.00-0.03) X10*3/uL Absolute Neuts (auto) 5.5 (2.0-8.3) x10*3/uL Absolute Nucleated RBC 0.000 (0.0-0.012) X10*3/uL Nucleated RBC % (auto) 0.0 (0.0-0.2) /100WBC PT 13.1 (10.0-13.1) SEC INR 1.1 (0.9-1.1) APTT 36.4 (26.0-36.4) SEC Sodium (135-145) mmol/L Potassium (3.3-5.1) mmol/L Chloride (96-108) mmol/L Carbon Dioxide (22-29) mmol/L Anion Gap (12-20) BUN (9-16) mg/dL Creatinine (0.5-1.4) mg/dL Estim Creat Clear Calc Estimated GFR Random Glucose (60-115) mg/dL Calcium (8.4-10.2) mg/dL Total Bilirubin (0.0-1.0) mg/dL AST (5-31) U/L ALT (0-31) U/L Alkaline Phosphatase (39-117) U/L Troponin I High Sens (<3.5-17.0) ng/L B-Natriuretic Peptide (<100) pg/mL Total Protein (6.5-8.0) g/dL Albumin (3.5-5.0) g/dL Beta HCG, Quant mIU/mL Urine Color Urine Appearance Urine pH (5.0-9.0) Ur Specific [place] (1.005-1.025) Urine Protein (Neg-Trace) mg/dL Urine Glucose (UA) (Negative) mg/dL Urine Ketones (Negative) mg/dL Urine Blood (Negative) Urine Nitrite (Negative) Ur Leukocyte Esterase (Negative) Urine RBC (0-2) /HPF Urine WBC (0-5) /HPF Ur Squamous Epith Cells (0-2) /HPF Urine Bacteria (None Seen) Hyaline Casts (0-2) /LPF Urine Test (NEGATIVE) COVID-19 (MICHEAL) Negative (Negative) COVID-19 Clin Com See Note 03/16/22 03/16/22 03/16/22 Range/Units 15:27 15:27 15:27 WBC (4.8-10.8) X10*3/uL RBC (4.20-5.50) X10*6/uL Hgb (12.0-16.0) g/dl Hct (37.0-47.0) % MCV (80.0-98.0) fL MCH (27.0-33.0) pg MCHC (31.0-35.0) g/dl RDW (11.0-16.0) % Plt Count (160-400) X10*3/uL MPV (9.4-12.3) fL Immature Gran % (Auto) (0.0-0.4) % Neut % (Auto) (45-73) % Lymph % (Auto) (20-40) % [place] % (Auto) (2-11) % Eos % (Auto) (0-4) % Baso % (Auto) (0-2) % Lymph # (Auto) (1.2-4.9) X10*3/uL [place] # (Auto) (0.1-1.2) X10*3/uL Eos # (Auto) (0.0-0.4) X10*3/uL Baso # (Auto) (0.0-0.2) X10*3/uL Abs Immat Gran (auto) (0.00-0.03) X10*3/uL Absolute Neuts (auto) (2.0-8.3) x10*3/uL Absolute Nucleated RBC (0.0-0.012) X10*3/uL Nucleated RBC % (auto) (0.0-0.2) /100WBC PT (10.0-13.1) SEC INR (0.9-1.1) APTT (26.0-36.4) SEC Sodium 142 (135-145) mmol/L Potassium 3.6 (3.3-5.1) mmol/L Chloride 104 (96-108) mmol/L Carbon Dioxide 26 (22-29) mmol/L Anion Gap 16 (12-20) BUN 13 (9-16) mg/dL Creatinine 0.62 (0.5-1.4) mg/dL Estim Creat Clear Calc 125.2 Estimated GFR > 60 Random Glucose 89 (60-115) mg/dL Calcium 9.5 (8.4-10.2) mg/dL Total Bilirubin 0.5 (0.0-1.0) mg/dL AST 18 (5-31) U/L ALT 18 (0-31) U/L Alkaline Phosphatase 103 (39-117) U/L Troponin I High Sens < 3.5 (<3.5-17.0) ng/L B-Natriuretic Peptide < 10 (<100) pg/mL Total Protein 7.3 (6.5-8.0) g/dL Albumin 4.1 (3.5-5.0) g/dL Beta HCG, Quant < 2 mIU/mL Urine Color Urine Appearance Urine pH (5.0-9.0) Ur Specific [place] (1.005-1.025) Urine Protein (Neg-Trace) mg/dL Urine Glucose (UA) (Negative) mg/dL Urine Ketones (Negative) mg/dL Urine Blood (Negative) Urine Nitrite (Negative) Ur Leukocyte Esterase (Negative) Urine RBC (0-2) /HPF Urine WBC (0-5) /HPF Ur Squamous Epith Cells (0-2) /HPF Urine Bacteria (None Seen) Hyaline Casts (0-2) /LPF Urine Test (NEGATIVE) COVID-19 (MICHEAL) (Negative) COVID-19 Clin Com 03/16/22 03/16/22 Range/Units 22:14 22:14 WBC (4.8-10.8) X10*3/uL RBC (4.20-5.50) X10*6/uL Hgb (12.0-16.0) g/dl Hct (37.0-47.0) % MCV (80.0-98.0) fL MCH (27.0-33.0) pg MCHC (31.0-35.0) g/dl RDW (11.0-16.0) % Plt Count (160-400) X10*3/uL MPV (9.4-12.3) fL Immature Gran % (Auto) (0.0-0.4) % Neut % (Auto) (45-73) % Lymph % (Auto) (20-40) % [place] % (Auto) (2-11) % Eos % (Auto) (0-4) % Baso % (Auto) (0-2) % Lymph # (Auto) (1.2-4.9) X10*3/uL [place] # (Auto) (0.1-1.2) X10*3/uL Eos # (Auto) (0.0-0.4) X10*3/uL Baso # (Auto) (0.0-0.2) X10*3/uL Abs Immat Gran (auto) (0.00-0.03) X10*3/uL Absolute Neuts (auto) (2.0-8.3) x10*3/uL Absolute Nucleated RBC (0.0-0.012) X10*3/uL Nucleated RBC % (auto) (0.0-0.2) /100WBC PT (10.0-13.1) SEC INR (0.9-1.1) APTT (26.0-36.4) SEC Sodium (135-145) mmol/L Potassium (3.3-5.1) mmol/L Chloride (96-108) mmol/L Carbon Dioxide (22-29) mmol/L Anion Gap (12-20) BUN (9-16) mg/dL Creatinine (0.5-1.4) mg/dL Estim Creat Clear Calc Estimated GFR Random Glucose (60-115) mg/dL Calcium (8.4-10.2) mg/dL Total Bilirubin (0.0-1.0) mg/dL AST (5-31) U/L ALT (0-31) U/L Alkaline Phosphatase (39-117) U/L Troponin I High Sens (<3.5-17.0) ng/L B-Natriuretic Peptide (<100) pg/mL Total Protein (6.5-8.0) g/dL Albumin (3.5-5.0) g/dL Beta HCG, Quant mIU/mL Urine Color Yellow Urine Appearance Clear Urine pH 6.5 (5.0-9.0) Ur Specific [place] >= 1.030 H (1.005-1.025) Urine Protein Negative (Neg-Trace) mg/dL Urine Glucose (UA) Negative (Negative) mg/dL Urine Ketones 15 (Negative) mg/dL Urine Blood Small (1+) H (Negative) Urine Nitrite Negative (Negative) Ur Leukocyte Esterase Negative (Negative) Urine RBC 3-5 H (0-2) /HPF Urine WBC 6-10 H (0-5) /HPF Ur Squamous Epith Cells 3-5 (0-2) /HPF Urine Bacteria 1+ (None Seen) Hyaline Casts 0-2 (0-2) /LPF Urine Test NEGATIVE (NEGATIVE) COVID-19 (MICHEAL) (Negative) COVID-19 Clin Com Discharge Plan Discharge Clinical Impression: Migraine Patient Disposition: Home, Self-Care Instructions: Migraine Headache (ED) Additional Instructions: Follow-up with neurology Return for worsening symptoms Prescriptions: No Action citalopram 10 mg tablet 10 mg PO DAILY 90 Days Qty: 90 0RF calcium citrate-vitamin D3 [Calcium Citrate + D] 315 mg-5 mcg (200 unit) tablet 1 tab PO BID Qty: 60 11RF cholecalciferol (vitamin D3) 50 mcg (2,000 unit) capsule 50 mcg PO DAILY Qty: 30 6RF lansoprazole 30 mg capsule,delayed release(DR/EC) 30 mg PO DAILY Qty: 30 6RF Bariatric Multivitamins 45 mg iron- 800 mcg-120 mcg capsule 1 cap PO .once a day 90 Days Qty: 90 1RF cholecalciferol (vitamin D3) 50 mcg (2,000 unit) capsule 50 mcg PO DAILY 90 Days Qty: 90 1RF Referrals: Davina Edwards MD [Physician] - 1 week Interventions: ED Discharge Assessment Last Done: 03/17/22 00:06 Discharge Date/Time: 03/17/22 00:06
[2022-03-16 15:34] LABS: MANUAL DIFF FLAG NO
[2022-03-16 15:35] LABS: Basophils Percent Auto 0.4 % (0-2); Eosinophils Percent Auto 0.2 % (0-4); Hematocrit 40.4 % (37.0-47.0); Hemoglobin 13.3 g/dl (12.0-16.0); Imm Gran Abs Auto 0.01 X10*3/uL (0.00-0.03); Imm Gran Pct Auto 0.1 % (0.0-0.4); Lymphocytes Absolute Auto 2.4 X10*3/uL (1.2-4.9); Lymphocytes Percent Auto 28.7 % (20-40); Mean Corpuscular HGB Conc 32.9 g/dl (31.0-35.0); Mean Corpuscular Hemoglobin 29.8 pg (27.0-33.0); Mean Corpuscular Volume 90.4 fL (80.0-98.0); Mean Platelet Volume 9.5 fL (9.4-12.3); Monocytes Absolute Auto 0.5 X10*3/uL (0.1-1.2); Neutrophils Absolute Auto 5.5 x10*3/uL (2.0-8.3); Neutrophils Percent Auto 64.6 % (45-73); Platelet Count 268 X10*3/uL (160-400); Red Blood Count 4.47 X10*6/uL (4.20-5.50); Red Cell Distribution Width 12.7 % (11.0-16.0); White Blood Count 8.4 X10*3/uL (4.8-10.8)
[2022-03-16 15:40] LABS: INTERNATIONAL NORM RATIO 1.1 (0.9-1.1); Prothrombin Time 13.1 SEC (10.0-13.1)
[2022-03-16 15:42] LABS: Partial Thromboplastin Time 36.4 SEC (26.0-36.4)
[2022-03-16 15:48] LABS: COVID-19 Test Negative (Negative)
[2022-03-16 15:59] LABS: B Type Natriuretic Peptide < 10 pg/mL (<100)
[2022-03-16 16:00] LABS: Troponin-I High Sensitivity < 3.5 ng/L (<3.5-17.0)
[2022-03-16 16:03] LABS: HCG Quantitative < 2 mIU/mL
[2022-03-16 16:15] LABS: Alanine Aminotransferase 18 U/L (0-31); Albumin Level 4.1 g/dL (3.5-5.0); Alkaline Phosphatase 103 U/L (39-117); Anion Gap 16 (12-20); Aspartate Amino Transferase 18 U/L (5-31); Bilirubin Total 0.5 mg/dL (0.0-1.0); Blood Urea Nitrogen 13 mg/dL (9-16); Calcium 9.5 mg/dL (8.4-10.2); Carbon Dioxide 26 mmol/L (22-29); Chloride 104 mmol/L (96-108); Creatinine Clr Calc Pharmacy 125.2; Estimated Glomerular Filt Rate > 60; Glucose Random 89 mg/dL (60-115); Potassium 3.6 mmol/L (3.3-5.1); Sodium 142 mmol/L (135-145); Total Protein 7.3 g/dL (6.5-8.0)
[2022-03-16 19:46] VITALS: BP 138/86; PULSE 79; RESP 18; TEMP 36.9; O2SAT 99
--- NOTE | 2022-03-16 20:25 | ED.CHESTPAIN ---
HPI - Chest Pain General Chief Complaint: Chest Pain Stated Complaint: Chest Pressure L Arm Heavy Time Seen by Provider: 03/16/22 19:45 Source: patient Mode of arrival: ambulatory Limitations: no limitations History of Present Illness HPI narrative: Patient is a 41-year-old female with past medical history of migraines and anxiety who presents to the ED today with complaints of headache, L sided chest pressure/heaviness that radiates down to her L arm with associated weakness since yesterday. She states her symptoms seemed to wosen around 1100 and was accompanied with an episode of profuse sweating that lasted about 5 minutes. She also reports having a mild ROLDAN with spots in her vision and nausea, similar to her migraine episodes in the past. She denies any injury to her head, neck, or chest. She was seen here on 12/2020 for similar symptoms and was worked up for CVA which was negative at that time and diagnosed with complex migraine after being seen by neurology. Recommendated to take topamax and fiorcet as well as plavix on discharge. held d/t gastric sleeve. Patient did not take topamax and fiorcet d/t at that time. She took plavix for a brief time then discontinued. She feels her symptoms today are similar to the previous visit except her weakness in 2020 was worse than todays. She denies LOC, fevers, chills, cough, chest pain, SOB, abdominal pain, vomiting, diarrhea, urinary symptoms, and leg pain. Related Data Previous Rx's Medication Instructions Recorded citalopram 10 mg tablet 10 mg PO DAILY 90 days #90 tabs 11/12/21 calcium citrate 315 mg-vitamin D3 1 tab PO BID #60 tabs 02/21/22 5 mcg (200 unit) tablet (Calcium Citrate + D) cholecalciferol (vitamin D3) 50 50 mcg PO DAILY #30 caps 02/21/22 mcg (2,000 unit) capsule lansoprazole 30 mg capsule,delayed 30 mg PO DAILY #30 caps 02/21/22 release [id number] 45 mg-folic 1 cap PO .once a day 90 days #90 02/21/22 acid 800 mcg-vit K 120 mcg capsule caps (Bariatric Multivitamins) cholecalciferol (vitamin D3) 50 50 mcg PO DAILY 90 days #90 caps 02/24/22 mcg (2,000 unit) capsule Allergies Allergy/AdvReac Type Severity Reaction Status Date / Time No Known Allergies Allergy Verified 02/21/22 12:30 [No Known Allergies*] Review of Systems Review of Systems: Yes all other systems are reviewed and are negative Constitutional: Constitutional: Reports no additional constitutional complaints, Denies body ache(s), Denies chills, Denies fever(s), Reports headache(s) and Reports weakness (L sided ) Eyes: Eyes: Reports no additional eye complaints, Denies change in vision and Reports spots in vision ENT: Reports system reviewed and no additional complaints, except as documented, Denies dizziness, Reports headache(s), Denies nasal congestion, Denies nasal discharge and Denies neck pain Cardiovascular: Cardiovascular: Reports no additional cardiovascular complaints, Denies chest pain, Denies leg edema and Denies dyspnea Comments: + chest pressure Respiratory: Respiratory: Reports no additional respiratory complaints, Denies cough and Denies dyspnea Gastrointestinal: Gastrointestinal: Reports no additional gastrointestinal complaints, Denies abdominal pain, Denies diarrhea, Reports nausea and Denies vomiting Genitourinary: Genitourinary: Reports no additional female genitourinary complaints and Denies urinary incontinence Musculoskeletal: Musculoskeletal: Reports no additional musculoskeletal complaints, Denies back pain, Denies arthralgias, Denies joint swelling, Denies neck pain, Denies numbness and Denies tingling Integumentary/Breasts: Skin/Breast: Reports system reviewed and no additional complaints, except as docu and Denies rash Neurologic: Reports system reviewed and no additional complaints, except as documented, Denies Abnormal speech present, Denies dizziness, Reports headache(s), Denies numbness, Denies tingling and Reports weakness (L sided ) [facility] Past Medical History Attestation statement: The following information was validated with the patient. Source: old records reviewed and nursing notes reviewed Medical History Anxiety Breast pain, right Encounter for physical examination Epigastric pain Hepatitis History of tonsillitis Hx of dislocation of ankle Hx of endometritis Hx of migraines Renal calculi Thoracic spine pain Surgical History H/O knee surgery History of sleeve gastrectomy Status post hysteroscopic ablation of endometrium Family History Family History Father No problems noted. Mother Diabetes mellitus Cervical cancer Daughter No problems noted. Daughter No problems noted. Brother Colon cancer Brother No problems noted. Sister No problems noted. Sister No problems noted. Sister No problems noted. Social History Social History Household Members: Spouse, Family and Children Housing: House Alcohol intake: never Patient Tobacco Use Status: Never used Tobacco e-Cigarette/Vaping Use: Never Used Second Hand Smoke Exposure: No Advance Directives: No Advance Directives Information Provided: Yes service: No Current occupational status: unemployed Cognitive needs: No Hearing needs: No Vision needs: No Physical Exam Vital Signs: Vital Signs: Last Vital Signs Temp 98.5 F 03/16/22 19:46 Pulse 79 03/16/22 19:46 Resp 18 03/16/22 19:46 BP 138/86 03/16/22 19:46 Pulse Ox 99 03/16/22 19:46 O2 Del Method 03/16/22 19:46 BMI result Body Mass Index 34.2 Const: General: cooperative, healthy appearing, comfortable and no acute distress Orientation/consciousness: patient oriented x3 Limitations: no limitations HEENT: Head: Yes normal to inspection Ears: hearing grossly normal bilaterally General nose exam: Normal external nose present Face and sinus: Yes normal facial exam Mouth: Normal oral and palatal mucosa present Throat: Yes posterior oropharynx normal Eyes: General: appearance normal, both eyes and all related structures Eyelids: Yes eyelids normal Conjunctivae: conjunctivae normal Sclerae: sclerae normal Pupils: Equal, round and reactive pupils present EOM: EOMs intact bilaterally Neck: Neck: Yes normal visual inspection and Yes full ROM Chest: Chest palpation & inspection: normal inspection of the chest and tenderness pectoral muscle on the left Resp: Effort & Inspection: normal respiratory effort Auscultation: clear to auscultation bilaterally Cardio: Rate: regular rate Rhythm: regular rhythm Peripheral pulses: Peripheral pulses 2+ throughout GI: Inspection: Yes normal to inspection Palpation (GI): Soft to palpation and nontender Auscultation: normal bowel sounds Back/Spine/Pelvis: Thoracic/Lumbar Spine: thoracic and lumbar spine normal to inspection Skin: General skin exam: no rashes or lesions noted Neuro: Other: CN II-XI intact. PERRLA, EOMis. 4/5 strength in left upper UE, 5/5 LE, 5/5 strength in right UE and LE. Decreased sensation in the left hand and forearm otherwise normal throughout. Normal gait. + pronator drift on the left side. Negative Rombergs. General: patient oriented x3 and CN's II-XI intact bilaterally Cranial nerves: Yes CN's II-XII intact bilaterally, Yes Equal, round and reactive pupils present, Yes Bilaterally intact EOM present, Yes Nystagmus not present, Yes Normal facial strength present and Yes Midline tongue present Cognition (Neuro): normal cognition Speech: No Abnormal speech present Gait exam (Neuro): Normal gait present Coordination: [id number] test normal and does not sway with eyes open Romberg Test: Negative Pupils: Normal pupillary reactivity/response: bilateral Extrem: General: Yes normal to inspection NIH Stroke Scale Internal: Initial- Upon Arrival Level of Consciousness: Alert Level of Consciousness Questions: Answers both questions correctly Level of Consciousness Commands: Performs both tasks correctly Best Gaze: Normal Visual: No visual loss Facial Palsy: Normal Motor Arm (Right): No drift Motor Arm (Left): Drift Motor Leg (Right): No drift Motor Leg (Left): No drift Limb Ataxia: Absent Sensory: Mild to moderate sensory loss (Left hand/forearm) Best Language: No aphasia Dysarthia: Normal Extinction and Inattention: No abnormality Score: 2 Course Course Course Narrative: Reevaluation(s) Reevaluation #1: CBC, CMP, PTT/PT/INR, trop, BNP all unremarkable. EKG shows NSR at 65 bpm, QTc 440. CXR shows no acute pulmonary findings. CTA pending. Time: 21:08 Reevaluation #2: 0000-headache is resolved. 5/5 strength LUE now. Normal sensation. All symptoms improved. CTA head/neck negative. Likely complex migraine. Patient has had similar episode before with w/u and eval by neurology. Was recommended to take topamax, fiorcet but could not d/t restrictions. Patient is still and we discussed this but she is not interested. Also recommended to take plavix but not took for brief time and discontinued. Restriction with ASA d/t gastric sleeve history. Less likely CVA with improved exam, also atypical with associated ROLDAN, negative CTA head/neck. Does not sound like TIA. Will have patient follow-up with Neurology outpatient. Reviewed worrisome signs and symptoms of when to return to the emergency room. Comfortable discharge home. Medications Administered Discontinued Medications Generic Name Dose Route Start Last Admin Trade Name Miriam PRN Reason Stop Dose Admin Diphenhydramine HCl 25 mg 03/16/22 20:37 03/16/22 21:44 Diphenhydramine Hcl 50 Mg/Ml Vial IVPUSH 03/16/22 20:38 25 mg ONCE ONE Administration Sodium Chloride 1,000 mls @ 999 mls/hr 03/16/22 20:45 03/17/22 00:05 Ns IV 03/16/22 21:45 Infused .Q1H1M NATALIE Infusion Iohexol 100 ml 03/16/22 21:20 03/16/22 21:21 Iohexol 350 Mg/Ml 100 Ml Infus..Btl IV 03/16/22 21:21 70 ml ONCE ONE Administration Metoclopramide HCl 10 mg 03/16/22 20:37 03/16/22 21:44 Metoclopramide Hcl 10 Mg/2 Ml Vial IVPUSH 03/16/22 20:38 10 mg ONCE ONE Administration MDM - Chest Pain MDM Narrative Medical decision making narrative: Patient is a 41-year-old female with past medical history of migraines and anxiety who presents to the ED today with complaints of L sided chest pressure/heaviness that radiates down to her L arm that started around 1100 this morning. She has a previous episode of the symptoms back on 12/2020 and was admitted for CVA rule out although w/u was negative and she was diagnosed with complex migraine after being seen by neurlogy. On exam today she is notable weak on the left side with 4/5 motor strength in the upper left extremities, normal LL, right UE/LE 5/5. There is decreased sensation along the patient's left hand and forearm. Positive pronator drift on the left side. Negative Rombergs, normal gait. Given pt's previous history and similar presentation today, likely complex migraine however will obtain CTA of head and neck to r/o acute CVA or dissection. Consider ACS, complex migraine, anxiety. Will obtain CBC, CMP, PTT/PT/INR, trop, BNP, EKG, CXR. Will start fluids and reglan/benadryl for ROLDAN and reassess. Medical Records Data Attestation: I reviewed the patient's medical records. Lab Data Attestation: I reviewed the patient's lab results. Result diagrams: 03/16/22 15:27 03/16/22 15:27 Labs: Lab Results 03/16/22 03/16/22 03/16/22 Range/Units 15:24 15:27 15:27 WBC 8.4 (4.8-10.8) X10*3/uL RBC 4.47 (4.20-5.50) X10*6/uL Hgb 13.3 (12.0-16.0) g/dl Hct 40.4 (37.0-47.0) % MCV 90.4 (80.0-98.0) fL MCH 29.8 (27.0-33.0) pg MCHC 32.9 (31.0-35.0) g/dl RDW 12.7 (11.0-16.0) % Plt Count 268 (160-400) X10*3/uL MPV 9.5 (9.4-12.3) fL Immature Gran % (Auto) 0.1 (0.0-0.4) % Neut % (Auto) 64.6 (45-73) % Lymph % (Auto) 28.7 (20-40) % Dorado % (Auto) 6.0 (2-11) % Eos % (Auto) 0.2 (0-4) % Baso % (Auto) 0.4 (0-2) % Lymph # (Auto) 2.4 (1.2-4.9) X10*3/uL [place] # (Auto) 0.5 (0.1-1.2) X10*3/uL Eos # (Auto) 0.0 (0.0-0.4) X10*3/uL Baso # (Auto) 0.0 (0.0-0.2) X10*3/uL Abs Immat Gran (auto) 0.01 (0.00-0.03) X10*3/uL Absolute Neuts (auto) 5.5 (2.0-8.3) x10*3/uL Absolute Nucleated RBC 0.000 (0.0-0.012) X10*3/uL Nucleated RBC % (auto) 0.0 (0.0-0.2) /100WBC PT 13.1 (10.0-13.1) SEC INR 1.1 (0.9-1.1) APTT 36.4 (26.0-36.4) SEC Sodium (135-145) mmol/L Potassium (3.3-5.1) mmol/L Chloride (96-108) mmol/L Carbon Dioxide (22-29) mmol/L Anion Gap (12-20) BUN (9-16) mg/dL Creatinine (0.5-1.4) mg/dL Estim Creat Clear Calc Estimated GFR Random Glucose (60-115) mg/dL Calcium (8.4-10.2) mg/dL Total Bilirubin (0.0-1.0) mg/dL AST (5-31) U/L ALT (0-31) U/L Alkaline Phosphatase (39-117) U/L Troponin I High Sens (<3.5-17.0) ng/L B-Natriuretic Peptide (<100) pg/mL Total Protein (6.5-8.0) g/dL Albumin (3.5-5.0) g/dL Beta HCG, Quant mIU/mL Urine Color Urine Appearance Urine pH (5.0-9.0) Ur Specific [place] (1.005-1.025) Urine Protein (Neg-Trace) mg/dL Urine Glucose (UA) (Negative) mg/dL Urine Ketones (Negative) mg/dL Urine Blood (Negative) Urine Nitrite (Negative) Ur Leukocyte Esterase (Negative) Urine RBC (0-2) /HPF Urine WBC (0-5) /HPF Ur Squamous Epith Cells (0-2) /HPF Urine Bacteria (None Seen) Hyaline Casts (0-2) /LPF Urine Test (NEGATIVE) COVID-19 (MICHEAL) Negative (Negative) COVID-19 Clin Com See Note 03/16/22 03/16/22 03/16/22 Range/Units 15:27 15:27 15:27 WBC (4.8-10.8) X10*3/uL RBC (4.20-5.50) X10*6/uL Hgb (12.0-16.0) g/dl Hct (37.0-47.0) % MCV (80.0-98.0) fL MCH (27.0-33.0) pg MCHC (31.0-35.0) g/dl RDW (11.0-16.0) % Plt Count (160-400) X10*3/uL MPV (9.4-12.3) fL Immature Gran % (Auto) (0.0-0.4) % Neut % (Auto) (45-73) % Lymph % (Auto) (20-40) % Dorado % (Auto) (2-11) % Eos % (Auto) (0-4) % Baso % (Auto) (0-2) % Lymph # (Auto) (1.2-4.9) X10*3/uL [place] # (Auto) (0.1-1.2) X10*3/uL Eos # (Auto) (0.0-0.4) X10*3/uL Baso # (Auto) (0.0-0.2) X10*3/uL Abs Immat Gran (auto) (0.00-0.03) X10*3/uL Absolute Neuts (auto) (2.0-8.3) x10*3/uL Absolute Nucleated RBC (0.0-0.012) X10*3/uL Nucleated RBC % (auto) (0.0-0.2) /100WBC PT (10.0-13.1) SEC INR (0.9-1.1) APTT (26.0-36.4) SEC Sodium 142 (135-145) mmol/L Potassium 3.6 (3.3-5.1) mmol/L Chloride 104 (96-108) mmol/L Carbon Dioxide 26 (22-29) mmol/L Anion Gap 16 (12-20) BUN 13 (9-16) mg/dL Creatinine 0.62 (0.5-1.4) mg/dL Estim Creat Clear Calc 125.2 Estimated GFR > 60 Random Glucose 89 (60-115) mg/dL Calcium 9.5 (8.4-10.2) mg/dL Total Bilirubin 0.5 (0.0-1.0) mg/dL AST 18 (5-31) U/L ALT 18 (0-31) U/L Alkaline Phosphatase 103 (39-117) U/L Troponin I High Sens < 3.5 (<3.5-17.0) ng/L B-Natriuretic Peptide < 10 (<100) pg/mL Total Protein 7.3 (6.5-8.0) g/dL Albumin 4.1 (3.5-5.0) g/dL Beta HCG, Quant < 2 mIU/mL Urine Color Urine Appearance Urine pH (5.0-9.0) Ur Specific Est[place] (1.005-1.025) Urine Protein (Neg-Trace) mg/dL Urine Glucose (UA) (Negative) mg/dL Urine Ketones (Negative) mg/dL Urine Blood (Negative) Urine Nitrite (Negative) Ur Leukocyte Esterase (Negative) Urine RBC (0-2) /HPF Urine WBC (0-5) /HPF Ur Squamous Epith Cells (0-2) /HPF Urine Bacteria (None Seen) Hyaline Casts (0-2) /LPF Urine Test (NEGATIVE) COVID-19 (MICHEAL) (Negative) COVID-19 Clin Com 03/16/22 03/16/22 Range/Units 22:14 22:14 WBC (4.8-10.8) X10*3/uL RBC (4.20-5.50) X10*6/uL Hgb (12.0-16.0) g/dl Hct (37.0-47.0) % MCV (80.0-98.0) fL MCH (27.0-33.0) pg MCHC (31.0-35.0) g/dl RDW (11.0-16.0) % Plt Count (160-400) X10*3/uL MPV (9.4-12.3) fL Immature Gran % (Auto) (0.0-0.4) % Neut % (Auto) (45-73) % Lymph % (Auto) (20-40) % Dorado % (Auto) (2-11) % Eos % (Auto) (0-4) % Baso % (Auto) (0-2) % Lymph # (Auto) (1.2-4.9) X10*3/uL [place] # (Auto) (0.1-1.2) X10*3/uL Eos # (Auto) (0.0-0.4) X10*3/uL Baso # (Auto) (0.0-0.2) X10*3/uL Abs Immat Gran (auto) (0.00-0.03) X10*3/uL Absolute Neuts (auto) (2.0-8.3) x10*3/uL Absolute Nucleated RBC (0.0-0.012) X10*3/uL Nucleated RBC % (auto) (0.0-0.2) /100WBC PT (10.0-13.1) SEC INR (0.9-1.1) APTT (26.0-36.4) SEC Sodium (135-145) mmol/L Potassium (3.3-5.1) mmol/L Chloride (96-108) mmol/L Carbon Dioxide (22-29) mmol/L Anion Gap (12-20) BUN (9-16) mg/dL Creatinine (0.5-1.4) mg/dL Estim Creat Clear Calc Estimated GFR Random Glucose (60-115) mg/dL Calcium (8.4-10.2) mg/dL Total Bilirubin (0.0-1.0) mg/dL AST (5-31) U/L ALT (0-31) U/L Alkaline Phosphatase (39-117) U/L Troponin I High Sens (<3.5-17.0) ng/L B-Natriuretic Peptide (<100) pg/mL Total Protein (6.5-8.0) g/dL Albumin (3.5-5.0) g/dL Beta HCG, Quant mIU/mL Urine Color Yellow Urine Appearance Clear Urine pH 6.5 (5.0-9.0) Ur Specific [place] >= 1.030 H (1.005-1.025) Urine Protein Negative (Neg-Trace) mg/dL Urine Glucose (UA) Negative (Negative) mg/dL Urine Ketones 15 (Negative) mg/dL Urine Blood Small (1+) H (Negative) Urine Nitrite Negative (Negative) Ur Leukocyte Esterase Negative (Negative) Urine RBC 3-5 H (0-2) /HPF Urine WBC 6-10 H (0-5) /HPF Ur Squamous Epith Cells 3-5 (0-2) /HPF Urine Bacteria 1+ (None Seen) Hyaline Casts 0-2 (0-2) /LPF Urine Test NEGATIVE (NEGATIVE) COVID-19 (MICHEAL) (Negative) COVID-19 Clin Com Imaging Data [address] head/neck angio: Attestation: I personally reviewed and interpreted this imaging study as follows: Radiologist's impression: FINDINGS: CT Head: There is no evidence of acute intracranial hemorrhage or territorial infarction. No abnormal mass-effect or midline shift is seen. Zarate to white matter differentiation is well preserved. No extra-axial fluid collections are identified. There is no abnormal enhancement. The ventricles and sulci are normal in size. The study demonstrates the cava septum pellucidum and vergae. There is no abnormal attenuation within the brain parenchyma. The osseous structures and soft tissues are normal. The mastoid air cells and visualized portions of the paranasal sinuses are well-aerated. CTA Neck: There is a 4 vessel aortic arch, and the left vertebral artery arises directly off the arch measures a normal variant. The great vessels of the neck are widely patent. The subclavian arteries appear normal bilaterally. The common carotid arteries have normal caliber. The carotid bifurcations bilaterally appear normal. The internal carotid arteries in the neck bilaterally have uniform and normal caliber. The origins of both vertebral arteries are well seen and appear normal. Both vertebral arteries are widely patent and demonstrate good opacification throughout their cervical course. The left vertebral artery is minimally dominant. Nonvascular: The visualized upper lung alberto are well aerated. The thyroid gland has slightly heterogenous attenuation. There is no cervical lymphadenopathy. There is no significant spondylosis or facet arthropathy. CTA Head: The intracranial internal carotid arteries and their bifurcations appear normal. The middle and anterior cerebral arteries bilaterally demonstrate normal caliber with no evidence of focal stenosis, aneurysm or vascular malformation. There is normal arborization of the middle cerebral artery branches. The anterior communicating artery is normal. In the posterior circulation, the vertebral arteries are codominant and have uniform caliber. The basilar artery appears normal. The posterior cerebral arteries have normal caliber. The venous sinuses opacify normally; the study demonstrates arachnoid granulations in the lateral right transverse sinus. CT/CT angio head neck IMPRESSION: CT head and neck: 1. There are no acute bleeds or territorial infarcts. 2. There are no masses or areas of abnormal enhancement. 3. There is no cervical lymphadenopathy and no masses are demonstrated in the neck. ? CTA head and neck: 1. The left vertebral artery arises directly off the aortic arch which is a normal variant. 2. The upper thoracic and cervical vessels have normal caliber without evidence of flow-limiting stenosis. 3. Intracranially there are no focal stenoses, aneurysms or vascular malformations. ? This critical result was discussed with CARMELA Salgado by telephone on 03/16/2022 at 10:05 PM and it was ascertained that the content and urgency of the report was understood at the time of direct communication. Chest x-ray: Attestation: I personally reviewed and interpreted this imaging study as follows: Radiologist's impression: [address] [address] XRay Report Signed Patient: Sebastian Mariee I MR#: [id number] : 1980 Acct:[id number] Age/Sex: 41 / F ADM Date: 03/16/22 Loc: .ED Attending Dr: Ordering Physician: Royce Skinner Date of Service: 03/16/22 Procedure(s): XR chest 1V Accession Number(s): [id number] cc: Royce Skinner~ EXAMINATION: XR CHEST CLINICAL INFORMATION: Question pneumonia COMPARISON: 10/10/2017 TECHNIQUE: Frontal view of the chest was obtained. FINDINGS: No convincing evidence for an acute process. Generalized opacity over the mid to lower lung zones are grossly due to overlying soft tissue. Lung alberto are grossly clear. The cardiac silhouette is not enlarged. The hilar regions are comparable. XR/XR chest 1V IMPRESSION: No acute finding. ? ECG Data ECG #1: Attestation: I personally reviewed and interpreted this ECG as follows: ECG interpretation date: 03/16/22 ECG interpretation time: 11:58 Interpretation: NSR with rate 78, normal pr, normal qrs, normal qt Discharge Plan Discharge Clinical Impression: Migraine Patient Disposition: Home, Self-Care Instructions: Migraine Headache (ED) Additional Instructions: Follow-up with neurology Return for worsening symptoms Prescriptions: No Action citalopram 10 mg tablet 10 mg PO DAILY 90 Days Qty: 90 0RF calcium citrate-vitamin D3 [Calcium Citrate + D] 315 mg-5 mcg (200 unit) tablet 1 tab PO BID Qty: 60 11RF cholecalciferol (vitamin D3) 50 mcg (2,000 unit) capsule 50 mcg PO DAILY Qty: 30 6RF lansoprazole 30 mg capsule,delayed release(DR/EC) 30 mg PO DAILY Qty: 30 6RF Bariatric Multivitamins 45 mg iron- 800 mcg-120 mcg capsule 1 cap PO .once a day 90 Days Qty: 90 1RF cholecalciferol (vitamin D3) 50 mcg (2,000 unit) capsule 50 mcg PO DAILY 90 Days Qty: 90 1RF Referrals: Davina Edwards MD [Physician] - 1 week Interventions: ED Discharge Assessment Last Done: 03/17/22 00:06 Discharge Date/Time: 03/17/22 00:06
[2022-03-16] MEDS: iohexoL 350 MG/ML 100 ML INFUS..BTL IV (21:21)
[2022-03-16] MEDS: diphenhydrAMINE HCL 50 MG/ML VIAL 25 MG IVPUSH (21:44)
[2022-03-16] MEDS: Metoclopramide HCl 10 MG/2 ML VIAL IVPUSH (21:44)
[2022-03-16] MEDS: 0.9 % Sodium Chloride 1,000 ML 999 ML IV (21:44)
[2022-03-16 22:23] LABS: Appearance Urine Clear; Color Urine Yellow; Glucose Urine UA Negative (Negative); Leukocyte Esterase Urine Negative (Negative); Nitrite Urine Negative (Negative); PH 6.5 (5.0-9.0); Specific Gravity - Urine >= 1.030 (1.005-1.025); UMIC TRIGGER UACC YES; Urine Blood Small (1+) (Negative); Urine Ketones 15 mg/dL (Negative); Urine Protein Negative (Neg-Trace)
[2022-03-16 22:26] LABS: UPreg QC Valid YES; Urine Pregnancy NEGATIVE (NEGATIVE)
[2022-03-16 22:35] LABS: Bacteria Urine 1+ (None Seen); Hyaline Casts Urine 0-2 /LPF (0-2); UACC Culture Trigger YES
== END 2022-03-17 00:06 | disposition home or self-care (01) ==
PROVIDERS: Nurse Practitioner Family; Physician Assistant; Emergency Provider Emergency Medicine; PCP Internal Medicine
DX: G43.909 Migraine, unspecified, not intractable, without status migrainosus (principal); R07.89 Other chest pain; R29.702 NIHSS score 2; M79.602 Pain in left arm; R06.02 Shortness of breath; F41.9 Anxiety disorder, unspecified; Z20.822 Contact with and (suspected) exposure to COVID-19; Z79.899 Other long term (current) drug therapy
CPT/HCPCS: 70496; 70498; 71045; 80053; 81001; 81025; 83880; 84484; 84702; 85025; 85610; 85730; 87086; 87635; 93005; 96361; 96374; 96375; 99284; J1200; J2765; Q9967

== ENCOUNTER 2022-05-12 13:20 | Outpatient (REF) | payer OTHER, SELFPAY ==
--- NOTE | 2022-05-12 10:00 | EMG_ITS ---
Bilateral median and ulnar motor and sensory studies were performed. Bilateral radial sensory studies were performed and paraspinal muscles were tested with a needle. IMPRESSION: 1. Mild bilateral ulnar neuropathy across cubital tunnel. 2. Mild right median neuropathy across carpal tunnel. MD FLOR Toure/ALVIN / [id number]
== END 2022-05-12 13:21 | disposition home or self-care (01) ==
LOC: HO.NEURO 13:20
PROVIDERS: PCP Internal Medicine; Visit Provider Internal Medicine
DX: R20.0 Anesthesia of skin (principal)
CPT/HCPCS: 95886; 95911

== ENCOUNTER → 2022-09-12 12:49 | Outpatient (BNVA) | payer OTHER, SELFPAY | PROVIDERS: PCP Internal Medicine; Visit Provider Psychiatry & Neurology Neurology | DX: M54.2 Cervicalgia (principal); G56.20 Lesion of ulnar nerve, unspecified upper limb; G56.11 Other lesions of median nerve, right upper limb; G43.909 Migraine, unspecified, not intractable, without status migrainosus | CPT/HCPCS: 99202 ==

== ENCOUNTER 2022-09-15 09:56 | Outpatient (REF) | payer OTHER, SELFPAY ==
--- NOTE | ~2022-09-15 | MM_ITS ---
EXAMINATION: MM SCREENING DIGITAL BREAST TOMOSYNTHESIS, BILATERAL CLINICAL INFORMATION: Screening. Asymptomatic. The lifetime risk of breast cancer based on the Tyrer-Cuzick Model is 9%. COMPARISON: Mammography: 09/14/2021, 09/21/2020 (baseline). TECHNIQUE: Digital breast tomosynthesis is performed in both the craniocaudal and mediolateral oblique views along with computer-aided detection (CAD). Synthesized 2D images are generated from the tomosynthesis. FINDINGS: The breasts are heterogeneously dense, which may obscure small masses (ACR BI-RADS breast composition Category c). The breasts are asymmetric in size, right slightly larger is similar to prior studies. The right breast shows no developing density or interval mass or architectural abnormality. Neither breast shows abnormal calcifications. The axilla and skin contours are unremarkable. There is parenchymal asymmetry central inner left breast slightly more focal on synthesized 2-D imaging, likely related to summation artifact and incompletely compressed glandular tissue. Patient will be recalled to fully characterize. MM/MM tomosynthesis screening BI IMPRESSION: Left: -Parenchymal asymmetry central inner breast slightly more focal on synthesized 2-D imaging, likely related to summation artifact and/or incompletely compressed glandular tissue. Right: No mammographic evidence of malignancy. ASSESSMENT: BI-RADS 0: Incomplete - Need Additional Imaging Evaluation RECOMMENDATION: 1. Additional views left breast (spot CC; spot ML). 2. Targeted ultrasound if warranted after review of the additional views. 3. Radiology department staff will contact the patient for additional imaging. This patient's information was entered into a reminder system with a target due date for their next mammogram.
[2022-09-15 12:08] LABS: Alanine Aminotransferase 17 U/L (0-31); Albumin Level 3.8 g/dL (3.5-5.0); Alkaline Phosphatase 86 U/L (39-117); Anion Gap 10 (12-20); Aspartate Amino Transferase 19 U/L (5-31); Bilirubin Total 0.5 mg/dL (0.0-1.0); Blood Urea Nitrogen 13 mg/dL (9-16); Carbon Dioxide 30 mmol/L (22-29); Chloride 107 mmol/L (96-108); Cholesterol 174 mg/dL; Estimated Glomerular Filt Rate > 60; Glucose Fasting 90 mg/dL (60-99); HDL Cholesterol 41 mg/dL; LDL Cholesterol Calculated 122 mg/dl; Sodium 143 mmol/L (135-145); Total Protein 6.4 g/dL (6.5-8.0); Triglycerides 59 mg/dL
[2022-09-15 12:27] LABS: Vitamin D 25-OH Total 20.4 ng/mL (>30)
== END 2022-09-15 09:57 | disposition home or self-care (01) ==
LOC: HO.MAMMO 09:56
PROVIDERS: PCP Internal Medicine; Visit Provider Internal Medicine
DX: Z00.00 Encounter for general adult medical examination without abnormal findings (principal); Z12.31 Encounter for screening mammogram for malignant neoplasm of breast; E78.5 Hyperlipidemia, unspecified; E55.9 Vitamin D deficiency, unspecified
CPT/HCPCS: 36415; 77063; 77067; 80053; 80061; 82306

== ENCOUNTER 2022-09-22 15:00 | Outpatient (REF) | payer OTHER, SELFPAY ==
--- NOTE | ~2022-09-22 | MM_ITS ---
EXAMINATION: MM DIAGNOSTIC DIGITAL BREAST TOMOSYNTHESIS, LEFT CLINICAL INFORMATION: Recall from screening for parenchymal asymmetry central inner left breast likely summation artifact and/or incompletely compressed glandular tissue. TC score 9%. COMPARISON: Mammography: 09/15/2022, 09/14/2021, 09/21/2020 (baseline) TECHNIQUE: Digital breast tomosynthesis is performed. 2D images are generated from the tomosynthesis. The following views are obtained: Spot CC, spot ML. FINDINGS: There are scattered areas of fibroglandular density (ACR BI-RADS breast composition Category b). Breast tissue composition borders on heterogeneously dense. The additional views show no interval mass or architectural abnormality or developing density. Results are discussed with the patient at time of visit. MM/MM tomosynthesis added views L IMPRESSION: Additional views show no significant changes from prior studies. ASSESSMENT: BI-RADS 1: Negative RECOMMENDATION: Routine annual mammography screening. This patient's information was entered into a reminder system with a target due date for their next mammogram.
== END 2022-09-22 15:01 | disposition home or self-care (01) ==
LOC: HO.MAMMO 15:00
PROVIDERS: PCP Internal Medicine; Visit Provider Internal Medicine
DX: N64.89 Other specified disorders of breast (principal)
CPT/HCPCS: 77061; 77065

== ENCOUNTER 2022-10-05 21:16 | Emergency (ER) | payer OTHER, SELFPAY ==
--- NOTE | 2022-10-05 | ECG_ITS ---
Test Reason : CHEST PAIN Blood Pressure : / mmHG Vent. Rate : 108 BPM Atrial Rate : 108 BPM P-R Int : 148 ms QRS Dur : 076 ms QT Int : 346 ms P-R-T Axes : 030 066 056 degrees QTc Int : 463 ms Sinus tachycardia Otherwise normal ECG When compared with ECG of 16-MAR-2022 11:58, No significant change was found Referred By: Generic ED Physician Electronically Signed By:BESS MARSHALL MD
--- NOTE | ~2022-10-05 | XR_ITS ---
EXAMINATION: XR CHEST CLINICAL INFORMATION: Cough COMPARISON: 03/16/2022 TECHNIQUE: Frontal view of the chest was obtained. FINDINGS: The lungs are clear with no focal consolidation. No evidence of pneumothorax, pulmonary edema, or pleural effusions. The cardiomediastinal silhouette is unremarkable. No acute osseous findings. XR/XR chest 1V IMPRESSION: No acute cardiopulmonary findings.
[2022-10-05 21:27] VITALS: BP 120/80; BP 136/84; PULSE 109; PULSE 118; RESP 18; TEMP 36.6; O2SAT 100; O2SAT 99; BMI 32.9
[2022-10-05 22:00] VITALS: BP 127/78; PULSE 87; RESP 16; O2SAT 100
--- NOTE | 2022-10-05 22:00 | PC.NURSE ---
pt to ED for C/o CP and numbness to lips and hands bilaterally that started yesterday. pt also states was experiencing dizziness and a one time episode of unconsciousness that lasted a few mins . Pt placed on cardiac monitoring, displaying ST to NSR. Pt denies any other associated symptoms.
[2022-10-05 22:12] VITALS: BP 106/70; PULSE 101; RESP 17; TEMP 37.4; O2SAT 96
[2022-10-05 22:22] LABS: MANUAL DIFF FLAG NO
[2022-10-05 22:23] LABS: Basophils Percent Auto 0.3 % (0-2); Eosinophils Absolute Auto 0.1 X10*3/uL (0.0-0.4); Eosinophils Percent Auto 0.5 % (0-4); Hemoglobin 12.7 g/dl (12.0-16.0); Imm Gran Abs Auto 0.02 X10*3/uL (0.00-0.03); Imm Gran Pct Auto 0.2 % (0.0-0.4); Lymphocytes Absolute Auto 1.8 X10*3/uL (1.2-4.9); Lymphocytes Percent Auto 17.3 % (20-40); Mean Corpuscular HGB Conc 33.4 g/dl (31.0-35.0); Mean Corpuscular Hemoglobin 29.1 pg (27.0-33.0); Mean Platelet Volume 9.9 fL (9.4-12.3); Monocytes Absolute Auto 0.9 X10*3/uL (0.1-1.2); Monocytes Percent Auto 8.4 % (2-11); Neutrophils Absolute Auto 7.4 x10*3/uL (2.0-8.3); Neutrophils Percent Auto 73.3 % (45-73); Platelet Count 234 X10*3/uL (160-400); Red Blood Count 4.37 X10*6/uL (4.20-5.50); Red Cell Distribution Width 13.1 % (11.0-16.0); White Blood Count 10.1 X10*3/uL (4.8-10.8)
[2022-10-05 22:29] LABS: Appearance Urine Cloudy; Color Urine Yellow; Glucose Urine UA Negative (Negative); Leukocyte Esterase Urine Negative (Negative); Nitrite Urine Negative (Negative); Specific Gravity - Urine <= 1.005 (1.005-1.025); Urine Blood Negative (Negative); Urine Ketones Negative (Negative); Urine Protein Negative (Neg-Trace)
[2022-10-05 22:31] LABS: Bacteria Urine 1+ (None Seen); Hyaline Casts Urine 0-2 /LPF (0-2); RBC Urine 0-2 /HPF (0-2); WBC Urine 0-5 /HPF (0-5)
[2022-10-05 22:38] LABS: Anion Gap 14 (12-20); Blood Urea Nitrogen 12 mg/dL (9-16); Calcium 9.7 mg/dL (8.4-10.2); Carbon Dioxide 23 mmol/L (22-29); Chloride 108 mmol/L (96-108); Creatinine Clr Calc Pharmacy 101.9; Estimated Glomerular Filt Rate > 60; Glucose Random 89 mg/dL (60-115); Potassium 3.7 mmol/L (3.3-5.1); Sodium 141 mmol/L (135-145)
--- NOTE | 2022-10-05 22:45 | ED.CHESTPAIN ---
HPI - Chest Pain General Chief Complaint: Chest Pain Stated Complaint: DIFF BREATHING, DIZZINESS Time Seen by Provider: 10/05/22 22:15 Source: patient Mode of arrival: ambulatory Limitations: no limitations History of Present Illness HPI narrative: Patient no significant past medical history with congested for last few days with occasional cough came here for increased dizziness started prior to arrival get worse when she moves slight nausea no vomiting no focal weakness no chest pain or palpitation no shortness of breath patient was hyperventilating when arrived to the ER Related Data Previous Rx's Medication Instructions Recorded lansoprazole 30 mg capsule,delayed 30 mg PO DAILY #30 caps 02/21/22 release [id number]-[id number] 45 mg-folic 1 cap PO .once a day 90 days #90 02/21/22 acid 800 mcg-vit K 120 mcg capsule caps (Bariatric Multivitamins) cholecalciferol (vitamin D3) 50 50 mcg PO DAILY 90 days #90 caps 08/31/22 mcg (2,000 unit) capsule elbow sleeves #1 ea 09/12/22 magnesium oxide 250 mg PO BEDTIME #30 tabs 09/12/22 wrist splint #1 ea 09/12/22 benzonatate 200 mg capsule 200 mg PO TID PRN cough #30 caps 10/06/22 meclizine 25 mg tablet 25 mg PO TID PRN dizziness #20 tabs 10/06/22 Allergies Allergy/AdvReac Type Severity Reaction Status Date / Time No Known Allergies Allergy Verified 10/05/22 21:27 [No Known Allergies*] Review of Systems Review of Systems: Yes all other systems are reviewed and are negative PMFSH Past Medical History Medical History Anxiety Breast pain, right Encounter for physical examination Epigastric pain Hepatitis History of tonsillitis Hx of dislocation of ankle Hx of endometritis Hx of migraines Neck pain Renal calculi Right median nerve neuropathy Thoracic spine pain Ulnar neuropathy Surgical History H/O knee surgery History of sleeve gastrectomy Status post hysteroscopic ablation of endometrium Family History Family History Father No problems noted. Mother Diabetes mellitus Cervical cancer Daughter No problems noted. Daughter No problems noted. Brother Colon cancer Brother No problems noted. Sister No problems noted. Sister No problems noted. Sister No problems noted. Social History Social History Household Members: Spouse, Family and Children Housing: House Alcohol intake: never Patient Tobacco Use Status: Never used Tobacco Smoked in Last 30 Days: No e-Cigarette/Vaping Use: Never Used Second Hand Smoke Exposure: No Use of substances other than those prescribed or required for medical reasons: No Any prior treatment program specific to substance use: No Advance Directives: No Advance Directives Information Provided: No Patient : No service: No Current occupational status: unemployed Cognitive needs: No Hearing needs: No Vision needs: No Physical Exam Vital Signs: Vital Signs: Last Vital Signs Temp 99.1 F 10/05/22 23:15 Pulse 98 10/05/22 23:15 Resp 17 10/05/22 23:15 BP 110/73 10/05/22 23:15 Pulse Ox 100 10/05/22 23:15 O2 Del Method Room Air 10/05/22 23:15 BMI result Body Mass Index 32.9 Appearance: Alert. Oriented X3. No acute distress. Eyes: PERRLA, No Nystagmus ENT: Pharynx normal. Oral Mucosa moist Neck: Normal inspection. Neck supple. CVS: Normal heart rate and rhythm. Pulses normal. Respiratory: No respiratory distress. Equal air entry bilateral, no wheezing/rales/rhonchi Abdomen: Soft and nontender. Bowel sounds are present, no mass palpable, no CVA tenderness Skin: Skin warm and dry. Normal skin color. Normal skin turgor. Extremities: No lower extremity edema. No calf tenderness Neuro: Oriented X 3. No motor deficit. No sensory deficit.No cerebellar signs , cranial nerves II-XII intact Medications Administered Discontinued Medications Generic Name Dose Route Start Last Admin Trade Name Freq PRN Reason Stop Dose Admin Guaifenesin/Codeine Phosphate 10 ml 10/05/22 22:46 10/05/22 22:59 Guaifen/Codeine Sf 200/20/10ml 10 Ml Liquid PO 10/05/22 22:47 10 ml ONCE ONE Administration Meclizine HCl 50 mg 10/05/22 22:46 10/05/22 22:59 Meclizine Hcl 25 Mg Tablet PO 10/05/22 22:47 50 mg ONCE ONE Administration Ondansetron HCl 4 mg 10/05/22 22:46 10/05/22 22:59 Ondansetron Odt 4 Mg Tab.Marii BRENNANINGU 10/05/22 22:47 4 mg ONCE ONE Administration Medical Decision Making Medical Decision Making [facility] Narrative: Patient with benign positional vertigo no signs of [employer] involved symptoms improved after IV hydration and meclizine also patient had common cold give her cough drops Lab Data 10/05/22 22:18 10/05/22 22:18 Labs: Lab Results 10/05/22 10/05/22 10/05/22 Range/Units 22:18 22:18 22:18 WBC 10.1 (4.8-10.8) X10*3/uL RBC 4.37 (4.20-5.50) X10*6/uL Hgb 12.7 (12.0-16.0) g/dl Hct 38.0 (37.0-47.0) % MCV 87.0 (80.0-98.0) fL MCH 29.1 (27.0-33.0) pg MCHC 33.4 (31.0-35.0) g/dl RDW 13.1 (11.0-16.0) % Plt Count 234 (160-400) X10*3/uL MPV 9.9 (9.4-12.3) fL Immature Gran % (Auto) 0.2 (0.0-0.4) % Neut % (Auto) 73.3 H (45-73) % Lymph % (Auto) 17.3 L (20-40) % Piatt % (Auto) 8.4 (2-11) % Eos % (Auto) 0.5 (0-4) % Baso % (Auto) 0.3 (0-2) % Lymph # (Auto) 1.8 (1.2-4.9) X10*3/uL Piatt # (Auto) 0.9 (0.1-1.2) X10*3/uL Eos # (Auto) 0.1 (0.0-0.4) X10*3/uL Baso # (Auto) 0.0 (0.0-0.2) X10*3/uL Abs Immat Gran (auto) 0.02 (0.00-0.03) X10*3/uL Absolute Neuts (auto) 7.4 (2.0-8.3) x10*3/uL Absolute Nucleated RBC 0.000 (0.0-0.012) X10*3/uL Nucleated RBC % (auto) 0.0 (0.0-0.2) /100WBC Sodium 141 (135-145) mmol/L Potassium 3.7 (3.3-5.1) mmol/L Chloride 108 (96-108) mmol/L Carbon Dioxide 23 (22-29) mmol/L Anion Gap 14 (12-20) BUN 12 (9-16) mg/dL Creatinine 0.74 (0.5-1.4) mg/dL Estim Creat Clear Calc 101.9 Estimated GFR > 60 Random Glucose 89 (60-115) mg/dL Calcium 9.7 D (8.4-10.2) mg/dL Troponin I High Sens < 2.7 (<3.5-17.0) ng/L Urine Color Urine Appearance Urine pH (5.0-9.0) Ur Specific [place] (1.005-1.025) Urine Protein (Neg-Trace) mg/dL Urine Glucose (UA) (Negative) mg/dL Urine Ketones (Negative) mg/dL Urine Blood (Negative) Urine Nitrite (Negative) Ur Leukocyte Esterase (Negative) Urine RBC (0-2) /HPF Urine WBC (0-5) /HPF Ur Squamous Epith Cells (0-2) /HPF Urine Bacteria (None Seen) Hyaline Casts (0-2) /LPF COVID-19 (MICHEAL) (Negative) COVID-19 Clin Com Influenza Type A (KRAIG) (Negative) Influenza Type B (KRAIG) (Negative) Influenza A & B Note 10/05/22 10/06/22 10/06/22 Range/Units 22:18 01:41 01:41 WBC (4.8-10.8) X10*3/uL RBC (4.20-5.50) X10*6/uL Hgb (12.0-16.0) g/dl Hct (37.0-47.0) % MCV (80.0-98.0) fL MCH (27.0-33.0) pg MCHC (31.0-35.0) g/dl RDW (11.0-16.0) % Plt Count (160-400) X10*3/uL MPV (9.4-12.3) fL Immature Gran % (Auto) (0.0-0.4) % Neut % (Auto) (45-73) % Lymph % (Auto) (20-40) % Piatt % (Auto) (2-11) % Eos % (Auto) (0-4) % Baso % (Auto) (0-2) % Lymph # (Auto) (1.2-4.9) X10*3/uL Piatt # (Auto) (0.1-1.2) X10*3/uL Eos # (Auto) (0.0-0.4) X10*3/uL Baso # (Auto) (0.0-0.2) X10*3/uL Abs Immat Gran (auto) (0.00-0.03) X10*3/uL Absolute Neuts (auto) (2.0-8.3) x10*3/uL Absolute Nucleated RBC (0.0-0.012) X10*3/uL Nucleated RBC % (auto) (0.0-0.2) /100WBC Sodium (135-145) mmol/L Potassium (3.3-5.1) mmol/L Chloride (96-108) mmol/L Carbon Dioxide (22-29) mmol/L Anion Gap (12-20) BUN (9-16) mg/dL Creatinine (0.5-1.4) mg/dL Estim Creat Clear Calc Estimated GFR Random Glucose (60-115) mg/dL Calcium (8.4-10.2) mg/dL Troponin I High Sens (<3.5-17.0) ng/L Urine Color Yellow Urine Appearance Cloudy Urine pH 7.0 (5.0-9.0) Ur Specific [place] <= 1.005 (1.005-1.025) Urine Protein Negative (Neg-Trace) mg/dL Urine Glucose (UA) Negative (Negative) mg/dL Urine Ketones Negative (Negative) mg/dL Urine Blood Negative (Negative) Urine Nitrite Negative (Negative) Ur Leukocyte Esterase Negative (Negative) Urine RBC 0-2 (0-2) /HPF Urine WBC 0-5 (0-5) /HPF Ur Squamous Epith Cells 6-10 (0-2) /HPF Urine Bacteria 1+ (None Seen) Hyaline Casts 0-2 (0-2) /LPF COVID-19 (MICHEAL) Negative (Negative) COVID-19 Clin Com See Note Influenza Type A (KRAIG) Negative (Negative) Influenza Type B (KRAIG) Negative (Negative) Influenza A & B Note See Note Discharge Plan Discharge Clinical Impression: Benign paroxysmal positional vertigo Patient Disposition: Home, Self-Care Instructions: Benign Paroxysmal Positional Vertigo (ED) Additional Instructions: Care and cautions as advised Take medication as prescribed Follow with PCP if not better Cough drops as prescribed Prescriptions: New meclizine 25 mg tablet 25 mg PO TID PRN (Reason: dizziness) Qty: 20 0RF benzonatate 200 mg capsule 200 mg PO TID PRN (Reason: cough) Qty: 30 0RF No Action lansoprazole 30 mg capsule,delayed release(DR/EC) 30 mg PO DAILY Qty: 30 6RF Bariatric Multivitamins 45 mg iron- 800 mcg-120 mcg capsule 1 cap PO .once a day 90 Days Qty: 90 1RF cholecalciferol (vitamin D3) 50 mcg (2,000 unit) capsule 50 mcg PO DAILY 90 Days Qty: 90 1RF magnesium oxide 250 mg magnesium tablet 250 mg PO BEDTIME Qty: 30 3RF (DME) elbow sleeves See Rx Instructions .Route .MEDSUPPLY Qty: 1 0RF Rx Instructions: As directed (DME) wrist splint See Rx Instructions .Route .MEDSUPPLY Qty: 1 0RF Rx Instructions: As directed Interventions: ED Discharge Assessment Last Done: 10/06/22 02:36 Discharge Date/Time: 10/06/22 02:37
[2022-10-05 22:48] LABS: Troponin-I High Sensitivity < 2.7 ng/L (<3.5-17.0)
[2022-10-05] MEDS: Ondansetron ODT 4 MG TAB.RAPDIS TRANSLINGU (22:59)
[2022-10-05] MEDS: Meclizine HCl 25 MG TABLET 50 MG PO (22:59)
[2022-10-05] MEDS: guaiFEN/Codeine SF 200/20/10ML 10 ML LIQUID PO (22:59)
[2022-10-05 23:15] VITALS: BP 110/73; PULSE 98; RESP 17; TEMP 37.3; O2SAT 100
--- NOTE | 2022-10-05 23:16 | MHC.EDTECH ---
ED ROUNDS ARE DONE @11PM VITALS ARE STABLE WILL CONTINUE TO MONITOR
[2022-10-06 02:02] LABS: COVID-19 Test Negative (Negative); IDNOW Serial# 08D9AD1C; IDNOW Serial# BCCEAD1C; Influenza A Negative (Negative); Influenza B2 Negative (Negative)
== END 2022-10-06 02:37 | disposition home or self-care (01) ==
PROVIDERS: Emergency Provider Internal Medicine; PCP Internal Medicine
DX: H81.10 Benign paroxysmal vertigo, unspecified ear (principal); Z20.822 Contact with and (suspected) exposure to COVID-19
CPT/HCPCS: 36415; 71045; 80048; 81001; 84484; 85025; 87502; 87635; 93005; 99284; 99285

== ENCOUNTER 2022-10-10 13:26 | Outpatient (REF) | payer OTHER, SELFPAY ==
--- NOTE | ~2022-10-10 | XR_ITS ---
EXAMINATION: XR KNEE AP STANDING CLINICAL INFORMATION: Pain COMPARISON: Previous left knee x-ray from 2018 TECHNIQUE: AP standing view of both knees and sunrise view of the left knee FINDINGS: Left knee: There is orthopedic hardware in the proximal lateral tibia. Hardware appears unchanged and intact. There is valgus angulation at the knee. 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 There are small osteophytes at the patellofemoral joint. Standing AP view of the right knee is unremarkable. XR/XR knee standing BI IMPRESSION: Postop change to the proximal tibia. Severe arthritis at the lateral femoral tibial joint and valgus angulation.
--- NOTE | ~2022-10-10 | XR_ITS ---
EXAMINATION: XR KNEE AP STANDING CLINICAL INFORMATION: Pain COMPARISON: Previous left knee x-ray from 2018 TECHNIQUE: AP standing view of both knees and sunrise view of the left knee FINDINGS: Left knee: There is orthopedic hardware in the proximal lateral tibia. Hardware appears unchanged and intact. There is valgus angulation at the knee. 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 There are small osteophytes at the patellofemoral joint. Standing AP view of the right knee is unremarkable. XR/XR knee LT 1V IMPRESSION: Postop change to the proximal tibia. Severe arthritis at the lateral femoral tibial joint and valgus angulation.
== END 2022-10-10 13:27 | disposition home or self-care (01) ==
LOC: HO.HOSX 13:26
PROVIDERS: Visit Provider Physician Assistant
DX: M17.12 Unilateral primary osteoarthritis, left knee (principal); Z96.9 Presence of functional implant, unspecified; Z87.81 Personal history of (healed) traumatic fracture
CPT/HCPCS: 73560; 73565; 99202

== ENCOUNTER 2022-12-29 10:33 | Outpatient (AMB) | payer OTHER, SELFPAY ==
--- NOTE | 2022-12-29 10:35 | MHC.PC.OV ---
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 Television News Required: No Accompanied by: Self / Same As Patient Allergies No Known Allergies [No Known Allergies*] Allergy (Verified 12/29/22 10:47) Medication List - Last Reconciled 12/29/22 by Denise Lew MD cholecalciferol (vitamin D3) 50 mcg PO DAILY 90 days [elbow sleeves As directed] lansoprazole 30 mg PO DAILY magnesium oxide 250 mg PO BEDTIME mennorfhoxgf-[id number]-awup-FA-vit K 45 mg iron- 800 mcg-120 mcg (Bariatric Multivitamins) 1 cap PO .once a day 90 days [wrist splint As directed] Tobacco use date assessed: 08/31/22 Dental Screening Dental Screen Date: 12/29/22 Did you have a dental visit in the last 12 months?: No Did you have a dental problem in the last 6 months where you did not have access to dental care?: No Was dental information given to patient?: Patient has dentist HPI HPI Comments History of Present Illness Details This is a 42-year-old female with left knee osteoarthritis, migraine with aura and vitamin-D deficiency that comes today complaining of left foot pain that started about 10 days ago where she fell and hit her knee and feet. The pain is worse when she place the foot on the floor 1st thing in the morning and gets tolerable while walking most likely due to plantar fascitis. Has no deformities or swelling. I will order x-ray. She has severe left knee osteoarthritis which was read evaluated by Ortho which recommended physical therapy. Has not started physical therapy yet. Migraines are more frequent and in the past were relieved by Diclofenac. On vitamin-D supplements for her vitamin-D deficiency. No chest pain or shortness of breath. [facility] Medical History (Updated 12/29/22 @ 10:59 by Denise Lew MD) Anxiety Breast pain, right Encounter for physical examination Epigastric pain History of tonsillitis Hx of dislocation of ankle Hx of endometritis Hx of migraines Neck pain Renal calculi Right median nerve neuropathy Thoracic spine pain Ulnar neuropathy Surgical History H/O knee surgery History of sleeve gastrectomy Status post hysteroscopic ablation of endometrium Family History Father No problems noted. Mother Diabetes mellitus Cervical cancer Daughter No problems noted. Daughter No problems noted. Brother Colon cancer Brother No problems noted. Sister No problems noted. Sister No problems noted. Sister No problems noted. Social History Household Members: Spouse, Family and Children Housing: House Alcohol intake: never Patient Tobacco Use Status: Never used Tobacco e-Cigarette/Vaping Use: Never Used Second Hand Smoke Exposure: No service: No Current occupational status: unemployed Cognitive needs: No Hearing needs: No Vision needs: No Questionnaire Thrive Questionnaire Date Thrive assessed: 08/31/22 MARYCHUY-7 AMB Questionnaire MARYCHUY-7 Date MARYCHUY - 7 assessed: 08/31/22 Source: Developed by Drs. Brandon Sotelo, Daphne Retana, Lawson Martin and colleagues, with an educational omid from [employer]. Review of Systems Const All systems reviewed & are unremarkable except as noted in HPI and below Eyes Reports no additional complaints, Denies change in vision and Denies other visual disturbances Card Denies chest pain at rest, Denies chest pain with activity, Denies edema, Denies irregular heart rhythm, Denies claudication, Denies dyspnea, Denies dyspnea on exertion, Denies orthopnea, Denies paroxysmal nocturnal dyspnea and Denies slow heart rate Resp Denies cough, Denies dyspnea and Denies dyspnea on exertion GI Denies abdominal pain, Denies change in bowel habits, Denies excessive flatus, Denies nausea and Denies vomiting Denies urinary incontinence, Denies urinary hesitancy and Denies urinary urgency Musc Denies abnormal gait, Denies atrophy, Denies deformity and Denies limited range of motion Skin/Breast Denies bleeding lesions, Denies changing lesions and Denies rash Neuro Denies abnormal gait and Denies lack of coordination Physical exam (Primary Care) Vital Signs: Last Vital Signs BP 100/72 12/29/22 10:37 BMI result Body Mass Index 32.8 Tobacco/Smoking Status: Tobacco use Status Tobacco use date assessed 08/31/22 12/29/22 10:43 Patient Tobacco Use Status Never used Tobacco 12/29/22 10:43 e-Cigarette/Vaping Use Never Used 12/29/22 10:43 Thrive Assessment: Date of Thrive Assessment Date Thrive assessed 08/31/22 12/29/22 10:43 Eyes General: appearance normal, both eyes and all related structures Eyelids: Yes eyelids normal Conjunctivae: conjunctivae normal Neck Neck: Yes normal visual inspection and Yes supple Resp Effort & Inspection: normal respiratory effort Auscultation: clear to auscultation bilaterally Cardio Jugular venous distension: no JVD Rate: regular rate Rhythm: regular rhythm Heart sounds: S1 normal heart sound present and S2 normal heart sound present Extrem General: Yes full ROM Assessment and Plan Assessment & Plan (1) Osteoarthritis of left knee: Code(s): M17.12 - Unilateral primary osteoarthritis, left knee Plan: Start NSAIDs as needed. Referred to physical therapy. (2) Left foot pain: Code(s): M79.672 - Pain in left foot Plan: X-ray ordered. (3) Vitamin D deficiency: Code(s): E55.9 - Vitamin D deficiency, unspecified Plan: Continue vitamin-D supplement (4) Migraine with aura: Code(s): G43.109 - Migraine with aura, not intractable, without status migrainosus Plan: Start NSAIDs as needed Orders: Orders PT Evaluation and Treatment Today M17.12 - Unilateral primary osteoarthritis, left knee XR foot LT 2V Today M79.672 - Pain in left foot XR foot RT 2V Today M79.671 - Pain in right foot Referrals Pain Management Referral M17.12 - Unilateral primary osteoarthritis, left knee Medications: New diclofenac potassium 50 mg PO BID PRN 60 tabs 0RF pain 30 days Coding Level of Care Code Est Pt Level 4 (48184) Diagnoses Osteoarthritis of left knee M17.12 Left foot pain M79.672 Vitamin D deficiency E55.9 Migraine with aura G43.109 Time Spent (min) 22
[2022-12-29 10:37] VITALS: BP 100/72; BMI 32.8
== END 2022-12-29 11:03 | disposition home or self-care (01) ==
PROVIDERS: PCP Internal Medicine; Visit Provider Internal Medicine
DX: M17.12 Unilateral primary osteoarthritis, left knee (principal); M79.672 Pain in left foot; E55.9 Vitamin D deficiency, unspecified; G43.109 Migraine with aura, not intractable, without status migrainosus
CPT/HCPCS: 99214

== ENCOUNTER 2022-12-29 11:20 | Outpatient (REF) | payer OTHER, SELFPAY ==
--- NOTE | ~2022-12-29 | XR_ITS ---
EXAMINATION: XR FOOT, RIGHT CLINICAL INFORMATION: Pain. COMPARISON: None available. TECHNIQUE: AP, lateral, and oblique views of the right foot. FINDINGS: The bones and soft tissues are normal. No fracture. Alignment is anatomic. Joint spaces are maintained. XR/XR foot LT 2V IMPRESSION: Normal right foot. EXAMINATION: XR FOOT, LEFT CLINICAL INFORMATION: Pain. COMPARISON: None available. TECHNIQUE: AP, lateral, and oblique views of the left foot. FINDINGS: The bones and soft tissues are normal. No fracture. Alignment is anatomic. Joint spaces are maintained. IMPRESSION: Normal left foot.
--- NOTE | ~2022-12-29 | XR_ITS ---
EXAMINATION: XR FOOT, RIGHT CLINICAL INFORMATION: Pain. COMPARISON: None available. TECHNIQUE: AP, lateral, and oblique views of the right foot. FINDINGS: The bones and soft tissues are normal. No fracture. Alignment is anatomic. Joint spaces are maintained. XR/XR foot RT 2V IMPRESSION: Normal right foot. EXAMINATION: XR FOOT, LEFT CLINICAL INFORMATION: Pain. COMPARISON: None available. TECHNIQUE: AP, lateral, and oblique views of the left foot. FINDINGS: The bones and soft tissues are normal. No fracture. Alignment is anatomic. Joint spaces are maintained. IMPRESSION: Normal left foot.
== END 2022-12-29 11:21 | disposition home or self-care (01) ==
LOC: HO.XRAY 11:20
PROVIDERS: PCP Internal Medicine; Visit Provider Internal Medicine
DX: M79.671 Pain in right foot (principal); M79.672 Pain in left foot
CPT/HCPCS: 73620

== ENCOUNTER 2023-01-16 14:28 | Outpatient (AMB) | payer OTHER, SELFPAY ==
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
[2023-01-16 14:30] VITALS: BP 110/72; PULSE 83; O2SAT 95; BMI 33.4
== END 2023-01-16 14:57 | disposition home or self-care (01) ==
PROVIDERS: Visit Provider Nurse Practitioner Family
DX: M54.2 Cervicalgia (principal); G56.20 Lesion of ulnar nerve, unspecified upper limb; G56.11 Other lesions of median nerve, right upper limb; G43.909 Migraine, unspecified, not intractable, without status migrainosus
CPT/HCPCS: 99214

== ENCOUNTER → 2023-01-16 14:28 | Outpatient (BNVA) | payer OTHER, SELFPAY | PROVIDERS: Visit Provider Nurse Practitioner Family | DX: M54.2 Cervicalgia (principal); G56.23 Lesion of ulnar nerve, bilateral upper limbs; G56.11 Other lesions of median nerve, right upper limb; G43.909 Migraine, unspecified, not intractable, without status migrainosus | CPT/HCPCS: 99212 ==

== ENCOUNTER 2023-04-20 08:45 | Outpatient (AMB) | payer OTHER, SELFPAY ==
--- NOTE | 2023-04-20 09:02 | A.OFFVIS_ITS ---
Intake Vital Signs 04/20/23 09:03 Height 5 ft 3 in Weight 189 lb 8 oz BMI 33.6 BP 116/60 Blood Pressure Location Lt brachial Position Sitting Respiration 18 Pulse 81 Pulse Source Pulse Oximeter Pulse Oximetry (%) 98 Oxygen Delivery Method Room Air Intake Visit Reasons: Unilateral primary osteoarthritis, left knee/conf Allergies No Known Allergies [No Known Allergies*] Allergy (Verified 04/20/23 08:52) HPI HPI Comments History of Present Illness Details Sebastian is a very pleasant 42 year old female who presents to the office today for evaluation and management of her chronic left knee pain. Patient s/o left ORIF left tibial plateau fracture 05/16/2014 and has been dealing with pain in the knee since. She underwent left genicular nerve block in 2017 with improvement in her pain until this year. She would like to repeat the procedure. She states that did not follow up for the RFA as her pain did not return after the nerve block until this year. Patient recently evaluated by orthopedics and referred here for treatment. She has taken tylenol and motrin with limited benefit. She is currently so is not taking any other medications. Pain along lateral aspect of the knee with some tenderness to palpation and limited ROM. Pain today is rated as 9/10, constant. In terms of muscle damage condition is described as aching. Pain is negatively impacting her general activity, recreational activities and walking. [facility] Medical History Right median nerve neuropathy Ulnar neuropathy Neck pain Anxiety Thoracic spine pain Renal calculi Encounter for physical examination Epigastric pain Breast pain, right Hx of migraines History of tonsillitis Hx of dislocation of ankle Hx of endometritis Surgical History H/O knee surgery History of sleeve gastrectomy Status post hysteroscopic ablation of endometrium Family History Father No problems noted. Mother Diabetes mellitus Cervical cancer Daughter No problems noted. Daughter No problems noted. Brother Colon cancer Brother No problems noted. Sister No problems noted. Sister No problems noted. Sister No problems noted. Social History Household Members: Spouse, Family and Children Housing: House Alcohol intake: never Patient Tobacco Use Status: Never used Tobacco e-Cigarette/Vaping Use: Never Used Second Hand Smoke Exposure: No service: No Current occupational status: unemployed Cognitive needs: No Hearing needs: No Vision needs: No Review of Systems Const All systems reviewed & are unremarkable except as noted in HPI and below Physical Exam Vital Signs: Last Vital Signs Pulse 81 04/20/23 09:03 Resp 18 04/20/23 09:03 BP 116/60 04/20/23 09:03 Pulse Ox 98 04/20/23 09:03 Oxygen Delivery Method Room Air 04/20/23 09:03 BMI result Body Mass Index 33.6 General: awake, alert, oriented. Answers questions appropriately. Fully engaged in examination. Skin: warm, dry, intact HEENT: Normocephalic. Hearing intact. Cardiac: External chest normal in appearance. Respiratory: No cough, audible wheezing or stridor. Abdomen: without gross distension. MS: No obvious swelling or deformities. Able to transition from sit to stand unassisted. Ambulates with bilaterally normal heel strike and toe off Left knee: Tenderness to palpation along lateral joint line. Full ROM. Neurological: Oriented to person, place, time and situation. Thought process intact. No gait abnormalities appreciated. Psychiatric: Appropriate mood and affect. Good judgment and insight. Results Reviewed Results Reviewed: 10/10/22 XR/XR knee standing BI FINDINGS: Left knee: There is orthopedic hardware in the proximal lateral tibia. Hardware appears unchanged and intact. There is valgus angulation at the knee. 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 There are small osteophytes at the patellofemoral joint. Standing AP view of the right knee is unremarkable. IMPRESSION: Postop change to the proximal tibia. Severe arthritis at the lateral femoral tibial joint and valgus angulation. Assessment & Plan Assessment & Plan (1) Retained orthopedic hardware: Comment: Left tibia plateau ORIF; 05/16/2014. Code(s): Z96.9 - Presence of functional implant, unspecified (2) Osteoarthritis of left knee: Code(s): M17.12 - Unilateral primary osteoarthritis, left knee (3) Left knee pain: Code(s): M25.562 - Pain in left knee Qualifiers: Chronicity: chronic Qualified Code(s): M25.562 - Pain in left knee; G89.29 - Other chronic pain Plan Sebastian is a very pleasant 42 year old female who presented to the office today for evaluation and management of her chronic left knee pain. Patient underwent left knee genicular nerve block on 05/11/2018 with relief of her pain for more than 4 years with improvement in function and mobility. She would like to repeat the procedure. Discussed options for treatment including diagnostic interventional testing, steroid injections, peripheral nerve stimulation with Sprint, RFA and more permanent neuromodulation. Will schedule for fluoroscopy guided left diagnostic genicular nerve block with local anesthetic. Given patient is , advised no medication is 100% safe to take. Patient prefers to wait for nerve block. All questions and concerns have been answered and patient agrees with the plan. Follow up after injections and sooner if needed. Quality Reporting (2019) Adult ([facility] 138/06/29/68) Smoking risk assessment performed?: Yes Patient Tobacco Use Status: Never used Tobacco Coding Level of Care Code New Pt Level 4 (84849) Diagnoses Retained orthopedic hardware Z96.9 Osteoarthritis of left knee M17.12 Chronic pain of left knee M25.562; G89.29 Chronicity: chronic
[2023-04-20 09:03] VITALS: BP 116/60; PULSE 81; RESP 18; O2SAT 98; BMI 33.6
== END 2023-04-20 09:13 | disposition home or self-care (01) ==
PROVIDERS: PCP Internal Medicine; Visit Provider Registered Nurse Emergency
DX: Z96.9 Presence of functional implant, unspecified (principal); M17.12 Unilateral primary osteoarthritis, left knee; M25.562 Pain in left knee; G89.29 Other chronic pain
CPT/HCPCS: 99204

== ENCOUNTER → 2023-04-20 08:45 | Outpatient (BNVA) | payer OTHER, SELFPAY | PROVIDERS: PCP Internal Medicine; Visit Provider Registered Nurse Emergency | DX: M17.12 Unilateral primary osteoarthritis, left knee (principal); M25.562 Pain in left knee; G89.29 Other chronic pain; Z96.9 Presence of functional implant, unspecified | CPT/HCPCS: 99202 ==

== ENCOUNTER 2023-05-22 11:36 | Outpatient (AMB) | payer OTHER, SELFPAY ==
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
[2023-05-22 11:48] VITALS: BP 132/82; PULSE 98; O2SAT 80; BMI 34.4
== END 2023-05-22 12:18 | disposition home or self-care (01) ==
PROVIDERS: PCP Internal Medicine; Visit Provider Nurse Practitioner Family
DX: M54.2 Cervicalgia (principal); G56.20 Lesion of ulnar nerve, unspecified upper limb; G56.11 Other lesions of median nerve, right upper limb; G43.909 Migraine, unspecified, not intractable, without status migrainosus
CPT/HCPCS: 99214

== ENCOUNTER → 2023-05-22 11:36 | Outpatient (BNVA) | payer OTHER, SELFPAY | PROVIDERS: PCP Internal Medicine; Visit Provider Nurse Practitioner Family | DX: G56.20 Lesion of ulnar nerve, unspecified upper limb (principal); G56.11 Other lesions of median nerve, right upper limb; G43.909 Migraine, unspecified, not intractable, without status migrainosus; M54.2 Cervicalgia | CPT/HCPCS: 99212 ==

== ENCOUNTER 2023-06-06 06:23 | Outpatient (REF) | payer OTHER, SELFPAY ==
--- NOTE | ~2023-06-06 | FL_ITS ---
INDICATION: Intraoperative fluoroscopy. FLUOROSCOPY: Fluoroscopy Time: 0.2 minutes Dose/air kerma: 1.3 mGy Images saved: 2 FINDINGS: Multiple intraoperative fluoroscopic images are submitted during reported procedure of the left knee. Correlation with operative report. Evaluation is limited secondary to fluoroscopic technique. IMPRESSION: Intra-operative fluoroscopic imaging provided by radiology during reported procedure of the left knee. Please refer to operative note for further information.
== END 2023-06-06 06:24 | disposition home or self-care (01) ==
LOC: CF 06:23
PROVIDERS: Visit Provider Anesthesiology
DX: M17.12 Unilateral primary osteoarthritis, left knee (principal); G89.29 Other chronic pain; Z96.9 Presence of functional implant, unspecified
CPT/HCPCS: 64454; J0690; J2795

== ENCOUNTER 2023-06-06 13:41 | Outpatient (AMB) | payer OTHER, SELFPAY ==
--- NOTE | 2023-06-06 14:31 | A.OFFVIS_ITS ---
Intake Vital Signs 06/06/23 15:39 06/06/23 15:39 Height 5 ft 3 in 5 ft 3 in Weight 194 lb 2 oz 194 lb 2 oz BMI 34.4 34.4 BP 98/60 92/60 Blood Pressure Location Lt brachial Lt brachial Position Sitting Sitting Respiration 16 16 Pulse 71 81 Pulse Source Pulse Oximeter Pulse Oximeter Pulse Oximetry (%) 97 97 Oxygen Delivery Method Room Air Room Air Comment pre-op post-op Intake Visit Reasons: LEFT DIAGNOSTIC GENICULAR NERVE BLOCK Allergies No Known Allergies [No Known Allergies*] Allergy (Verified 06/06/23 15:40) PFS Medical History (Reviewed 01/16/23 @ 14:34 by Maria Antonia Herbert [facility]) Right median nerve neuropathy Ulnar neuropathy Neck pain Anxiety Thoracic spine pain Renal calculi Encounter for physical examination Epigastric pain Breast pain, right Hx of migraines History of tonsillitis Hx of dislocation of ankle Hx of endometritis Surgical History H/O knee surgery History of sleeve gastrectomy Status post hysteroscopic ablation of endometrium Family History Father No problems noted. Mother Diabetes mellitus Cervical cancer Daughter No problems noted. Daughter No problems noted. Brother Colon cancer Brother No problems noted. Sister No problems noted. Sister No problems noted. Sister No problems noted. Social History Household Members: Spouse, Family and Children Housing: House Alcohol intake: never Patient Tobacco Use Status: Never used Tobacco e-Cigarette/Vaping Use: Never Used Second Hand Smoke Exposure: No service: No Current occupational status: unemployed Cognitive needs: No Hearing needs: No Vision needs: No Physical Exam Vital Signs: Last Vital Signs Pulse 81 06/06/23 15:39 Resp 16 06/06/23 15:39 BP 92/60 06/06/23 15:39 Pulse Ox 97 06/06/23 15:39 Oxygen Delivery Method Room Air 06/06/23 15:39 BMI result Body Mass Index 34.4 Assessment & Plan Assessment & Plan (1) Retained orthopedic hardware: Comment: Left tibia plateau ORIF; 05/16/2014. Code(s): Z96.9 - Presence of functional implant, unspecified (2) Osteoarthritis of left knee: Code(s): M17.12 - Unilateral primary osteoarthritis, left knee (3) Left knee pain: Code(s): M25.562 - Pain in left knee Qualifiers: Chronicity: chronic Qualified Code(s): M25.562 - Pain in left knee; G89.29 - Other chronic pain Plan: Letf diagnostic genicular nerve block. Informed consent was explained to the patient. All questions were explained and answered.The patient received cefasolin 2 g IV 24 minutes before the procedure. The patient was taken inside the operating room. The patient was positioned supine on operating table with her left leg elevated on a gel bin. Time-out was performed delineating correct site, side, the nature of the procedure, patient's allergy, preoperative antibiotic if needed. All operating room staff was participating in OR time-out procedure. C-arm was brought over the operating field and picture of the left knee was demonstrated on the screen. Anterolateral and anteromedial surfaces of the knee as well as lower leg and the lower thigh were prepped with chloroprep and draped with utility towels. The point of interest were delineated for: FOR: superior lateral genicular nerve (branch of lateral femoral cutaneous nerve) as the connection of the metaphysis of the left femur with corresponding diaphysis on the lateral silhouette of the femur distal bone, For superior medial genicular nerve (suprapatellar saphenous nerve) the point of interest was delineated is the connection of metaphysis of left femur with corresponding diaphysis on the medial silhouette on the femoral distal bone. For inferior medial genicular nerve (infrapatellar saphenous nerve) the point of interest was delineated as connection of metaphysis of the proximal tibia on the medial side with corresponding diaphysis of the same bone. The projections of the points of interest on anterior surface of the left knee was injected with small amount of lidocaine 2% 1-to 2 ml. After that to needles 22 gauge 3-1/2 inch long were driven to were the point of interest in tunnel vision fashion. When the needle gently contacted the bones the C arm view was t urned lateral , care was taken to superimpose condyles of the knee. With condyles superimpsed the needles were adjusted the way the tips of the needle positioned at the middle of the shaft of the bone. After that injection of ropivacaine o.5% 1 to 1.5 mls was performed at each needle location. the needles were removed and bandaids were applied. the patient tolerated the procedure very well. Plan Sebastian is a very pleasant 42 year old female who presented to the office today for evaluation and management of her chronic left knee pain. Patient underwent left knee genicular nerve block on 05/11/2018 with relief of her pain for more than 4 years with improvement in function and mobility. She would like to repeat the procedure. Discussed options for treatment including diagnostic interventional testing, steroid injections, peripheral nerve stimulation with Sprint, RFA and more permanent neuromodulation. Will schedule for fluoroscopy guided left diagnostic genicular nerve block with local anesthetic. Given patient is , advised no medication is 100% safe to take. Patient prefers to wait for nerve block. All questions and concerns have been answered and patient agrees with the plan. Follow up after injections and sooner if needed. Orders: Orders FL guidance in treatment room 06/06/23 M25.562 - Pain in left knee Quality Reporting (2019) Adult ([facility] 138/06/29/68) Smoking risk assessment performed?: Yes Patient Tobacco Use Status: Never used Tobacco Coding Level of Care Code Procedure Only Diagnoses Retained orthopedic hardware Z96.9 Osteoarthritis of left knee M17.12 Chronic pain of left knee M25.562; G89.29 Chronicity: chronic
[2023-06-06 15:39] VITALS: BP 92/60; BP 98/60; PULSE 71; PULSE 81; RESP 16; O2SAT 97; BMI 34.4
== END 2023-06-06 14:59 | disposition home or self-care (01) ==
LOC: HO.PMCPRC 13:41
PROVIDERS: PCP Internal Medicine; Visit Provider Anesthesiology
DX: M17.12 Unilateral primary osteoarthritis, left knee (principal); M25.562 Pain in left knee; G89.29 Other chronic pain; Z96.9 Presence of functional implant, unspecified
CPT/HCPCS: 64454

== ENCOUNTER 2023-06-14 08:54 | Outpatient (AMB) | payer OTHER, SELFPAY ==
--- NOTE | 2023-06-14 09:29 | MHC.OFFVIS ---
Intake Vital Signs 06/14/23 09:35 Height 5 ft 3 in Weight 194 lb BMI 34.4 BP 118/67 Blood Pressure Location Lt brachial Position Sitting Respiration 14 Pulse 73 Pulse Source Pulse Oximeter Pulse Oximetry (%) 99 Oxygen Delivery Method Room Air Intake Visit Reasons: LEFT DIAGNOSTIC GENICULAR NERVE BLOCK/06/06/23 Intake Note: Patient comes in for post-op appointment. Reports pain 5/10. Allergies No Known Allergies [No Known Allergies*] Allergy (Verified 06/14/23 09:35) HPI HPI Comments History of Present Illness Details Sebastian is a very pleasant 42 year old female who presents to the office today for evaluation and management of her chronic left knee pain. She is here after diagnostic left genicular nerve block, she reports alleviation of the aching sensation in the foot and lower leg but not in the knee. She reports that most of her pain is on the outside of the left knee. She reports no pain relief in the knee after the injection. History of left ORIF left tibial plateau fracture 05/16/2014 and has been dealing with pain in the knee since. History of genicular nerve block in 2017 with improvement in her pain until now. She states that did not follow up for the RFA as her pain did not return after the nerve block until this year. Patient recently evaluated by orthopedics and referred here for treatment. We discussed today possibility of treating her pain with femoral nerve interventions, in the order to establish this possibility we need to perform diagnostic femoral nerve block. I will schedule this patient for diagnostic femoral nerve block under sedation. She insists on procedure to be done under sedation. [facility], [facility] Medical History Right median nerve neuropathy Ulnar neuropathy Neck pain Anxiety Thoracic spine pain Renal calculi Encounter for physical examination Epigastric pain Breast pain, right Hx of migraines History of tonsillitis Hx of dislocation of ankle Hx of endometritis Surgical History H/O knee surgery History of sleeve gastrectomy Status post hysteroscopic ablation of endometrium Family History Father No problems noted. Mother Diabetes mellitus Cervical cancer Daughter No problems noted. Daughter No problems noted. Brother Colon cancer Brother No problems noted. Sister No problems noted. Sister No problems noted. Sister No problems noted. Social History Household Members: Spouse, Family and Children Housing: House Alcohol intake: never Patient Tobacco Use Status: Never used Tobacco e-Cigarette/Vaping Use: Never Used Second Hand Smoke Exposure: No service: No Current occupational status: unemployed Cognitive needs: No Hearing needs: No Vision needs: No Review of Systems Const All systems reviewed & are unremarkable except as noted in HPI and below Physical Exam Vital Signs: Last Vital Signs Pulse 73 06/14/23 09:35 Resp 14 06/14/23 09:35 BP 118/67 06/14/23 09:35 Pulse Ox 99 06/14/23 09:35 Oxygen Delivery Method Room Air 06/14/23 09:35 BMI result Body Mass Index 34.4 General: awake, alert, oriented. Answers questions appropriately. Fully engaged in examination. Skin: warm, dry, intact HEENT: Normocephalic. Hearing intact. Cardiac: External chest normal in appearance. Respiratory: No cough, audible wheezing or stridor. Abdomen: without gross distension. MS: No obvious swelling or deformities. Able to transition from sit to stand unassisted. Ambulates with bilaterally normal heel strike and toe off Left knee: Tenderness to palpation along lateral joint line. Full ROM. Neurological: Oriented to person, place, time and situation. Thought process intact. No gait abnormalities appreciated. Psychiatric: Appropriate mood and affect. Good judgment and insight. Assessment & Plan Assessment & Plan (1) Retained orthopedic hardware: Comment: Left tibia plateau ORIF; 05/16/2014. Code(s): Z96.9 - Presence of functional implant, unspecified (2) Osteoarthritis of left knee: Code(s): M17.12 - Unilateral primary osteoarthritis, left knee (3) Left knee pain: Code(s): M25.562 - Pain in left knee Qualifiers: Chronicity: chronic Qualified Code(s): M25.562 - Pain in left knee; G89.29 - Other chronic pain Plan Sebastian is a very pleasant 42 year old female who presented to the office today for evaluation and management of her chronic left knee pain. Patient underwent left knee genicular nerve block on 05/11/2018 with relief of her pain for more than 4 years with improvement in function and mobility. The procedure was repeated 06/09/2023, however patient denied any pain improvement in the knee. She reported slightly better pain in the lower leg and foot. I will schedule her femoral nerve block under sedation. We will cover the procedure with preoperative dose of antibiotics. She insists on this procedure to be done under sedation. She reports oral Ativan causes her heart palpitations. Patient Instructions: I here by testify that I spent 32 minutes in conversation with this patient as well as planning my care evaluating her prior records and organizing my notes. Quality Reporting (2019) Adult ([facility] 138/06/29/68) Smoking risk assessment performed?: Yes Patient Tobacco Use Status: Never used Tobacco Coding Level of Care Code Est Pt Level 4 (76997) Diagnoses Retained orthopedic hardware Z96.9 Osteoarthritis of left knee M17.12 Chronic pain of left knee M25.562; G89.29 Chronicity: chronic
[2023-06-14 09:35] VITALS: BP 118/67; PULSE 73; RESP 14; O2SAT 99; BMI 34.4
== END 2023-06-14 10:14 | disposition home or self-care (01) ==
PROVIDERS: PCP Internal Medicine; Visit Provider Anesthesiology
DX: G89.29 Other chronic pain (principal); M17.12 Unilateral primary osteoarthritis, left knee; M25.562 Pain in left knee; Z96.9 Presence of functional implant, unspecified
CPT/HCPCS: 99214

== ENCOUNTER → 2023-06-14 08:54 | Outpatient (BNVA) | payer OTHER, SELFPAY | PROVIDERS: PCP Internal Medicine; Visit Provider Anesthesiology | DX: M17.12 Unilateral primary osteoarthritis, left knee (principal); M25.562 Pain in left knee; G89.29 Other chronic pain; Z96.9 Presence of functional implant, unspecified | CPT/HCPCS: 99212 ==

== ENCOUNTER 2023-06-30 10:44 | Day surgery (SDC) | payer OTHER, SELFPAY ==
[2023-06-28 11:53] VITALS: BMI 34.4
--- NOTE | 2023-06-29 10:12 | HO.ANESPROP2 ---
Documented by User: Enma Kimball NP 06/29/23 10:13 HPI - Anesthesia Eval Consult details Narrative: 42yo F for Left Diagnostic Femoral Nerve Block PMFSH Active Problems Active Problems: All Active Problems (Updated 05/21/20 @ 14:28 by Betyt Frances PA-C) Right foot pain (Acute) Left foot pain (Acute) Retained orthopedic hardware (Acute) Osteoarthritis of left knee (Acute) Right median nerve neuropathy (Acute) Ulnar neuropathy (Acute) Neck pain (Acute) Left knee pain (Acute) Nipple dermatitis (Acute) Mastitis without abscess (Acute) Neuropathy (Acute) Right leg pain (Acute) Hand numbness (Acute) Obesity (BMI 30.0-34.9) (Acute) Anxiety (Acute) Thoracic spine pain (Acute) Renal calculi (Acute) Encounter for physical examination (Acute) Migraine with aura (Acute) Overweight (BMI 25.0-29.9) (Acute) Abdominal pain (Acute) Vitamin D deficiency (Acute) Headache (Acute) Left arm weakness (Acute) Epigastric pain (Acute) Breast pain, right (Acute) History of sleeve gastrectomy (Acute) Past Medical History Medical History Right median nerve neuropathy Ulnar neuropathy Neck pain Anxiety Thoracic spine pain Renal calculi Encounter for physical examination Epigastric pain Breast pain, right Hx of migraines History of tonsillitis Hx of dislocation of ankle Hx of endometritis Family History Family History Father No problems noted. Mother Diabetes mellitus Cervical cancer Daughter No problems noted. Daughter No problems noted. Brother Colon cancer Brother No problems noted. Sister No problems noted. Sister No problems noted. Sister No problems noted. Surgical History Surgical History H/O knee surgery History of sleeve gastrectomy Status post hysteroscopic ablation of endometrium Social History Social History Household Members: Spouse, Family and Children Housing: House Alcohol intake: never Patient Tobacco Use Status: Never used Tobacco e-Cigarette/Vaping Use: Never Used Second Hand Smoke Exposure: No Use of substances other than those prescribed or required for medical reasons: No Are you DNR?: No Advance Directives: No Advance Directives Information Provided: Yes service: No Current occupational status: unemployed Cognitive needs: No Hearing needs: No Vision needs: No Meds Allergies Allergy/AdvReac Type Severity Reaction Status Date / Time No Known Allergies Allergy Verified 06/14/23 09:35 [No Known Allergies*] Exam Height,Weight and Vital Signs: Height 5 ft 3 in Weight 87.997 kg Assessment and Plan Assessment Anesthesia Assessment: Chart Reviewed Documented by User: Bert Bloom MD 06/30/23 11:24 [facility] Past Medical History Medical History Right median nerve neuropathy Ulnar neuropathy Neck pain Anxiety Thoracic spine pain Renal calculi Encounter for physical examination Epigastric pain Breast pain, right Hx of migraines History of tonsillitis Hx of dislocation of ankle Hx of endometritis Functional capacity: independent ambulation Family History Family History Father No problems noted. Mother Diabetes mellitus Cervical cancer Daughter No problems noted. Daughter No problems noted. Brother Colon cancer Brother No problems noted. Sister No problems noted. Sister No problems noted. Sister No problems noted. Family history of problems with anesthesia: No Surgical History Surgical History H/O knee surgery History of sleeve gastrectomy Status post hysteroscopic ablation of endometrium History of Problems with Anesthesia: No Social History Social History Household Members: Spouse, Family and Children Housing: House Alcohol intake: never Patient Tobacco Use Status: Never used Tobacco e-Cigarette/Vaping Use: Never Used Second Hand Smoke Exposure: No Use of substances other than those prescribed or required for medical reasons: No Are you DNR?: No Advance Directives: No Advance Directives Information Provided: Yes service: No Current occupational status: unemployed Cognitive needs: No Hearing needs: No Vision needs: No Meds Allergies Allergy/AdvReac Type Severity Reaction Status Date / Time No Known Allergies Allergy Verified 06/14/23 09:35 [No Known Allergies*] Exam Airway Mallampati Class: I TM Dist: >3cm Loose/Missing/Broken Teeth: No Heart: rrr Lungs: cta b/l Assessment and Plan Assessment Anesthesia Assessment: Chart Reviewed Final Anesthetic Review Family History of Problems with Anesthesia: No History of Problems with Anesthesia: No NPO: Yes ASA Class: II Final Preanesthetic Review: No Changes in Pt Med Stat, Meds/Allgs Chart Reviewed, Consent Obtained/Reviewed and Anes Risks/Benef Reviewed Patient Risk: Low Procedure Risk: Low Anesthetic Plan Anesthetic Plan: MAC: Disposition: Standard PACU
[2023-06-30 10:57] VITALS: BMI 35.0
[2023-06-30 11:02] VITALS: BP 97/53; PULSE 88; RESP 16; TEMP 36.6; O2SAT 98
[2023-06-30 11:06] LABS: UPreg QC Valid YES; Urine Pregnancy NEGATIVE (NEGATIVE)
[2023-06-30] MEDS: Lactated Ringers 1,000 ML 100 ML IVCONT (11:18)
--- NOTE | 2023-06-30 13:30 | MHC.SHP ---
Pre-Procedural Eval Section A - 24 Hr Update-Section A only Date of Service: 06/30/23 The patient is an INPATIENT: No Changes since office visit: Yes Patient answered all questions The patient has been examined within 24 hours of the surgical procedure. The History & Physical has been completed within 30 days and I have reviewed it.: No Section B - Complete if H&P > 30 days Chief Complaint: Unilateral primary osteoarthritis,chronic pain Details of Present Illness: As above as above Relevant Family History (Specify if Yes): No Relevant Social History: None Present Medications: see Short Stay Collaborative assessment Medical History: No relevant PMH History of Previous Operations: No relevant previous surgery Allergies: Allergies Allergy/AdvReac Type Severity Reaction Status Date / Time No Known Allergies Allergy Verified 06/14/23 09:35 [No Known Allergies*] Review of Systems Sugical H&P ROS: Negative: Constitution, Cardiovascular, Respiratory, Neurological, Psychiatric, Hem-Onc, Allergic/Immunologic, Gastrointestinal, Genitourinary, Musculoskeletal, Integumentary, Endocrine and Eyes/Ears/Nose/Throat Exam Surgical H&P Exam: Normal: HEENT, Normal: Heart, Normal: Lungs, Normal: Extremities, Normal: Abdomen, Normal: Skin and Normal: Neurological Plan Diagnosis/Plan: Unchanged I have reviewed the history and physical and performed a pertinent physical examination on my patient. No changes have occurred unless specified. Time Spent With Patient Time: Total time managing care of this patient today _5___ minutes.
[2023-06-30 14:30] VITALS: BP 98/50; PULSE 78; RESP 12; TEMP 36.1; O2SAT 99
--- NOTE | 2023-06-30 14:32 | P.BOP_ITS ---
Brief Operative Note Date of Service: 06/30/23 Pre-op diagnosis: Left knee pain Post-op diagnosis: same Procedure: Diagnostic left femoral nerve block ultrasound-guided. Surgeon: Memo Little MD Anesthesia: MAC Was an Patient Intake Representative used for this Procedure?: No Estimated blood loss (mL): 0 Pathology: none sent Condition: stable Disposition: PACU
--- NOTE | 2023-06-30 14:36 | W.PM.OPN ---
Operative Note Operative Note Date of Service: 06/30/23 Narrative: Ultrasound-guided left femoral nerve block. Informed consent was obtained risks and benefits were explained to the patient. The patient came to the operating room and she was position supine on the examination stretcher. Time-out was performed delineating name and date of of the patient, site and side of the procedure, need for antibiotic prophylaxis which is none , risk of DVT. ASA monitors were applied and patient was moderately sedated. Left groin of the patient was prepped with ChloraPrep and draped with sterile safe adhesive utility towels. Sterilely draped ultrasound probe was brought over the operating field and ultrasound picture of the femoral vein, femoral artery and femoral nerves were delineating on the screen. 100 mm echo stim needle was inserted extra-anatomically through the skin in in-plane fashion, it was advanced to the projection of the femoral nerve under direct live view vision. When tip of the needle was in the projection of the vicinity of the femoral nerve injection of the normal saline was performed into the needle after aspiration. There were no blood on aspiration. The injection met no resistance. 1 cc was injected. After that 7 cc of ropivacaine 0.5% was injected in the vicinity of the femoral nerve. Upon completion of the injection the needle was withdrawn and Band-Aid was applied. Patient tolerated procedure well. She went home without immediate complications.
[2023-06-30 14:45] VITALS: BP 115/66; PULSE 81; RESP 19; O2SAT 100
[2023-06-30 15:00] VITALS: BP 114/69; PULSE 83; RESP 15; O2SAT 100
[2023-06-30 15:15] VITALS: BP 121/67; PULSE 75; RESP 14; O2SAT 100
[2023-06-30 15:30] VITALS: BP 121/67; PULSE 72; RESP 16; TEMP 36.9; O2SAT 100
== END 2023-06-30 15:42 | disposition home or self-care (01) ==
PROVIDERS: Nurse Practitioner; PCP Internal Medicine; Visit Provider Anesthesiology
PROC: 3E0T3BZ Introduction of Anesthetic Agent into Peripheral Nerves and Plexi, Percutaneous Approach (ICD-10-PCS; CPT 64447; principal; 2023-06-30 12:00)
DX: M25.562 Pain in left knee (principal); G89.29 Other chronic pain; M17.12 Unilateral primary osteoarthritis, left knee; Z98.84 Bariatric surgery status; Z98.890 Other specified postprocedural states; Z96.9 Presence of functional implant, unspecified
CPT/HCPCS: 64447; 81025; J2704; J2795

== ENCOUNTER → 2023-06-30 10:44 | Outpatient (BNV) | payer OTHER, SELFPAY | PROVIDERS: PCP Internal Medicine; Visit Provider Anesthesiology | DX: M25.562 Pain in left knee (principal) | CPT/HCPCS: 64447 ==

== ENCOUNTER 2023-07-06 09:56 | Outpatient (AMB) | payer OTHER, SELFPAY ==
--- NOTE | 2023-07-06 09:58 | A.OFFVIS_ITS ---
Intake Vital Signs 07/06/23 10:07 Height 5 ft 3 in Weight 197 lb BMI 34.9 BP 102/60 Blood Pressure Location Lt brachial Position Sitting Respiration 14 Pulse 71 Pulse Source Pulse Oximeter Pulse Oximetry (%) 100 Oxygen Delivery Method Room Air Intake Visit Reasons: S/p (L) Dx Femoral NB 06/30/23/ confirm Intake Note: Patient comes in for post-op appointment. Report 0/10. Allergies No Known Allergies [No Known Allergies*] Allergy (Verified 07/06/23 10:06) HPI HPI Comments History of Present Illness Details Sebastian is again in my office status post left femoral nerve block. Six days after the procedure she reports no pain. She reports minor numbness on the inner portion of her left knee but she enjoys great activity of daily living, great mobility and excellent social interactions. I explained to the patient possibility of treating her pain on permanent basis if her pain will return back by performing sprint PNS versus curonix PNS. I offered to the patient to put her on the waiting list for psychological evaluation, I also gave her brochures to read about those 2 peripheral nerve stimulation modalities. She decided to wait and speak with her at this moment she might not need new appointment unless her pain will come back. She will give us a call. Prior: a very pleasant 42 year old female who presents to the office today for evaluation and management of her chronic left knee pain. She is here after diagnostic left genicular nerve block, she reports alleviation of the aching sensation in the foot and lower leg but not in the knee. She reports that most of her pain is on the outside of the left knee. She reports no pain relief in the knee after the injection. History of left ORIF left tibial plateau fracture 05/16/2014 and has been dealing with pain in the knee since. History of genicular nerve block in 2017 with improvement in her pain until now. She states that did not follow up for the RFA as her pain did not return after the nerve block until this year. Patient recently evaluated by orthopedics and referred here for treatment. [facility] Medical History Right median nerve neuropathy Ulnar neuropathy Neck pain Anxiety Thoracic spine pain Renal calculi Encounter for physical examination Epigastric pain Breast pain, right Hx of migraines History of tonsillitis Hx of dislocation of ankle Hx of endometritis Surgical History H/O knee surgery History of sleeve gastrectomy Status post hysteroscopic ablation of endometrium Family History Father No problems noted. Mother Diabetes mellitus Cervical cancer Daughter No problems noted. Daughter No problems noted. Brother Colon cancer Brother No problems noted. Sister No problems noted. Sister No problems noted. Sister No problems noted. Social History Household Members: Spouse, Family and Children Housing: House Alcohol intake: never Patient Tobacco Use Status: Never used Tobacco e-Cigarette/Vaping Use: Never Used Second Hand Smoke Exposure: No service: No Current occupational status: unemployed Cognitive needs: No Hearing needs: No Vision needs: No Review of Systems Const All systems reviewed & are unremarkable except as noted in HPI and below Physical Exam Vital Signs: Last Vital Signs Pulse 71 07/06/23 10:07 Resp 14 07/06/23 10:07 BP 102/60 07/06/23 10:07 Pulse Ox 100 07/06/23 10:07 Oxygen Delivery Method Room Air 07/06/23 10:07 BMI result Body Mass Index 34.9 General: awake, alert, oriented. Answers questions appropriately. Fully engaged in examination. Skin: warm, dry, intact HEENT: Normocephalic. Hearing intact. Cardiac: External chest normal in appearance. Respiratory: No cough, audible wheezing or stridor. Abdomen: without gross distension. MS: No obvious swelling or deformities. Able to transition from sit to stand unassisted. Ambulates with bilaterally normal heel strike and toe off Left knee: Tenderness to palpation along lateral joint line. Full ROM. Neurological: Oriented to person, place, time and situation. Thought process intact. No gait abnormalities appreciated. Psychiatric: Appropriate mood and affect. Good judgment and insight. Assessment & Plan Assessment & Plan (1) Retained orthopedic hardware: Comment: Left tibia plateau ORIF; 05/16/2014. Code(s): Z96.9 - Presence of functional implant, unspecified (2) Osteoarthritis of left knee: Code(s): M17.12 - Unilateral primary osteoarthritis, left knee (3) Left knee pain: Code(s): M25.562 - Pain in left knee Qualifiers: Chronicity: chronic Qualified Code(s): M25.562 - Pain in left knee; G89.29 - Other chronic pain Plan Sebastian is a very pleasant 42 year old female who presented to the office today for evaluation and management of her chronic left knee pain. Patient underwent left knee genicular nerve block on 05/11/2018 with relief of her pain for more than 4 years with improvement in function and mobility. The procedure was repeated 06/09/2023, however patient denied any pain improvement in the knee. Femoral nerve block which was r performed on 06/30/2023 resulted in excellent pain relief 6 days since the injection no pain up until now. PNS curonix versus PNS sprint was discussed with the patient. Brochures were given. Patient will give us a call when she decides what to do. She does not want to go now for psychological evaluation which was offered to her. Patient Instructions: I here by testify that I spent 36 minutes in conversation with the patient as well as evaluating her prior records, evaluating prior injections and planning this note. Quality Reporting (2019) Adult ([facility] 138/06/29/68) Smoking risk assessment performed?: Yes Patient Tobacco Use Status: Never used Tobacco Coding Level of Care Code Est Pt Level 4 (66618) Diagnoses Retained orthopedic hardware Z96.9 Osteoarthritis of left knee M17.12 Chronic pain of left knee M25.562; G89.29 Chronicity: chronic
[2023-07-06 10:07] VITALS: BP 102/60; PULSE 71; RESP 14; O2SAT 100; BMI 34.9
== END 2023-07-06 10:19 | disposition home or self-care (01) ==
PROVIDERS: PCP Internal Medicine; Visit Provider Anesthesiology
DX: G89.29 Other chronic pain (principal); M17.12 Unilateral primary osteoarthritis, left knee; M25.562 Pain in left knee; Z96.9 Presence of functional implant, unspecified
CPT/HCPCS: 99214

== ENCOUNTER → 2023-07-06 09:56 | Outpatient (BNVA) | payer OTHER, SELFPAY | PROVIDERS: PCP Internal Medicine; Visit Provider Anesthesiology | DX: M17.12 Unilateral primary osteoarthritis, left knee (principal); M25.562 Pain in left knee; G89.29 Other chronic pain; Z96.9 Presence of functional implant, unspecified | CPT/HCPCS: 99212 ==

== ENCOUNTER 2023-07-20 10:32 | Outpatient (AMB) | payer OTHER, SELFPAY ==
--- NOTE | 2023-07-20 10:35 | A.OFFVIS_ITS ---
Intake VS Expanded 07/20/23 10:41 BP 122/57 L Blood Pressure Location Rt brachial Blood Pressure Position Sitting Pulse 90 Pulse Source Pulse Oximeter Temp 97.3 F Temperature Source Tympanic Pulse Oximetry 96 Oxygen Delivery Method Room Air Height 5 ft 3 in Weight 193 lb 9.6 oz BMI 34.3 Body Fat % 41.7 Body Fat Mass 80.6 Fat Free Mass 112.8 Visceral Fat Rating 10.0 Body Water % 41.7 Body Water Mass 80.6 Muscle Mass/Score 107.2 Basal Metabolic Rate/Score 1,575 Intake Visit Reasons: (OV) LSG DOS 08/11/16 Allergies No Known Allergies [No Known Allergies*] Allergy (Verified 07/20/23 10:52) Medication List - Last Reconciled 07/20/23 by CARMELA Britton cholecalciferol (vitamin D3) 50 mcg PO DAILY 90 days [elbow sleeves As directed] lansoprazole 30 mg PO DAILY magnesium oxide 400 mg PO DAILY 30 days ttghynzqjlnk-osa-nzao-FA-vit K 45 mg iron- 800 mcg-120 mcg (Bariatric Multivitamins) 1 cap PO .once a day 90 days [wrist splint As directed] HPI HPI Comments History of Present Illness Details This?is a?42?yo female who is s/p LSG 08/11/2016. 7lb weight gain since last office visit 11/05/2021.?Continues to help care for her . Feels more anxious. Her daughter who is interested in health/fitness thinks she drinks too much coffee and not eating enough. She notes she has checked her blood sugar at home several times when not feeling well and it fluctuates from 60s-200s. Has a community therapist. Present meal plan includes: will have cheese, crackers during the day will have an evening meal with her family will desire something sweet when her anxiety increases has tried to reincorporate shakes in last few weeks nonsmoker, no EtOH Exercise routine includes: no time PFSH Medical History Right median nerve neuropathy Ulnar neuropathy Neck pain Anxiety Thoracic spine pain Renal calculi Encounter for physical examination Epigastric pain Breast pain, right Hx of migraines History of tonsillitis Hx of dislocation of ankle Hx of endometritis Surgical History H/O knee surgery History of sleeve gastrectomy Status post hysteroscopic ablation of endometrium Family History Father No problems noted. Mother Diabetes mellitus Cervical cancer Daughter No problems noted. Daughter No problems noted. Brother Colon cancer Brother No problems noted. Sister No problems noted. Sister No problems noted. Sister No problems noted. Social History Household Members: Spouse, Family and Children Housing: House Alcohol intake: never Patient Tobacco Use Status: Never used Tobacco e-Cigarette/Vaping Use: Never Used Second Hand Smoke Exposure: No service: No Current occupational status: unemployed Cognitive needs: No Hearing needs: No Vision needs: No Assessment & Plan Assessment & Plan (1) History of sleeve gastrectomy: Comment: August 2016 Code(s): Z90.3 - Acquired absence of stomach [part of] (2) Obesity (BMI 30.0-34.9): Code(s): E66.9 - Obesity, unspecified Plan New meal plan, encouraged pt to get adequate protein, avoid coffee on empty stomach, take PPI daily (was taking when I remember ) 7am 4 forks protein, 4 forks fruit/veg 12pm Fairlife or Premier shake 5pm dinner- 4 forks protein, 4 forks salad/veg 7pm Estonian yogurt Full set of labs ordered. Meal plan texted to pt, encouraged her to reach out between visits if above plan not working well for her. RTC 8 weeks. Patient is obese and is not considered stable at this time. I spent a total of 30 minutes reviewing/updating records, examining the patient and counseling the patient on weight management as detailed above. Orders: Orders Vitamin A Today Z90.3 - Acquired absence of stomach [part of] Zinc Today Z90.3 - Acquired absence of stomach [part of] Vitamin B12 and Folate Today Z90.3 - Acquired absence of stomach [part of] Vitamin B1 Today Z90.3 - Acquired absence of stomach [part of] Complete Blood Count Auto Diff Today Z90.3 - Acquired absence of stomach [part of] IRON PROFILE Today Z90.3 - Acquired absence of stomach [part of] C Reactive Protein Today Z90.3 - Acquired absence of stomach [part of] Vitamin D 25-OH Total Today Z90.3 - Acquired absence of stomach [part of] TSH reflex Free T4 Today Z90.3 - Acquired absence of stomach [part of] Comprehensive Met. Panel Today Z90.3 - Acquired absence of stomach [part of] Hemoglobin A1c Today Z90.3 - Acquired absence of stomach [part of] Insulin Today Z90.3 - Acquired absence of stomach [part of] Lipid Panel Today Z90.3 - Acquired absence of stomach [part of] Ferritin Today Z90.3 - Acquired absence of stomach [part of] Quality Reporting (2019) Adult ([facility] 138/06/29/68) Smoking risk assessment performed?: Yes Patient Tobacco Use Status: Never used Tobacco Coding Level of Care Code Est Pt Level 4 (13990) Diagnoses History of sleeve gastrectomy Z90.3 Obesity (BMI 30.0-34.9) E66.9
[2023-07-20 10:41] VITALS: BP 122/57; PULSE 90; TEMP 36.3; O2SAT 96; BMI 34.3
== END 2023-07-20 11:22 | disposition home or self-care (01) ==
PROVIDERS: PCP Internal Medicine; Visit Provider Physician Assistant Surgical
DX: E66.9 Obesity, unspecified (principal); Z68.34 Body mass index [BMI] 34.0-34.9, adult; Z90.3 Acquired absence of stomach [part of]; Z98.84 Bariatric surgery status
CPT/HCPCS: 99214

== ENCOUNTER → 2023-07-20 10:32 | Outpatient (BNVA) | payer OTHER, SELFPAY | PROVIDERS: PCP Internal Medicine; Visit Provider Physician Assistant Surgical | DX: E66.9 Obesity, unspecified (principal); Z71.3 Dietary counseling and surveillance; Z98.84 Bariatric surgery status; Z90.3 Acquired absence of stomach [part of]; Z79.899 Other long term (current) drug therapy | CPT/HCPCS: 99212 ==

== ENCOUNTER 2023-07-26 08:44 | Outpatient (REF) | payer OTHER, SELFPAY ==
[2023-07-26 08:59] LABS: MANUAL DIFF FLAG NO
[2023-07-26 09:08] LABS: Basophils Percent Auto 0.4 % (0-2); Eosinophils Absolute Auto 0.1 X10*3/uL (0.0-0.4); Eosinophils Percent Auto 1.3 % (0-4); Hematocrit 40.3 % (37.0-47.0); Hemoglobin 13.2 g/dl (12.0-16.0); Imm Gran Abs Auto 0.02 X10*3/uL (0.00-0.03); Imm Gran Pct Auto 0.3 % (0.0-0.4); Lymphocytes Absolute Auto 1.9 X10*3/uL (1.2-4.9); Mean Corpuscular HGB Conc 32.8 g/dl (31.0-35.0); Mean Corpuscular Hemoglobin 29.1 pg (27.0-33.0); Mean Platelet Volume 9.8 fL (9.4-12.3); Monocytes Absolute Auto 0.6 X10*3/uL (0.1-1.2); Monocytes Percent Auto 7.7 % (2-11); Neutrophils Absolute Auto 5.1 x10*3/uL (2.0-8.3); Neutrophils Percent Auto 65.3 % (45-73); Platelet Count 241 X10*3/uL (160-400); Red Blood Count 4.53 X10*6/uL (4.20-5.50); Red Cell Distribution Width 13.2 % (11.0-16.0); White Blood Count 7.8 X10*3/uL (4.8-10.8)
[2023-07-26 09:14] LABS: Estimated Average Glucose 108 mg/dL; Hemoglobin A1c % 5.4 % (<6.0)
[2023-07-26 09:49] LABS: Alanine Aminotransferase 20 U/L (0-31); Albumin Level 3.7 g/dL (3.5-5.0); Alkaline Phosphatase 93 U/L (39-117); Anion Gap 11 (12-20); Aspartate Amino Transferase 20 U/L (5-31); Bilirubin Total 0.4 mg/dL (0.0-1.0); Blood Urea Nitrogen 13 mg/dL (9-16); C Reactive Protein 1.68 mg/dL (< or = 0.50); Carbon Dioxide 29 mmol/L (22-29); Chloride 105 mmol/L (96-108); Cholesterol 200 mg/dL (<200); Estimated Glomerular Filt Rate > 60; Glucose Random 94 mg/dL (60-115); HDL Cholesterol 45 mg/dL (>40); Iron 74 mcg/dL (30-160); LDL Cholesterol Calculated 140 mg/dL (<100); Percent Iron Saturation 27 % (15-50); Potassium 3.9 mmol/L (3.3-5.1); Sodium 141 mmol/L (135-145); Total Iron Binding Capacity 278 mcg/dL (228-428); Triglycerides 77 mg/dL (<150); Unsaturated Iron Binding 204 ug/dL
[2023-07-26 10:20] LABS: Ferritin 23 ng/mL (10-250); Insulin 10 uU/mL (2-29); TSH reflex Free T4 0.67 uIU/mL (0.32-4.0); Vitamin D 25-OH Total 21.2 ng/mL (>30)
[2023-07-26 10:37] LABS: Folate 13.8 ng/mL (> or = 4.0); Vitamin B12 753 pg/mL (200-900)
[2023-07-31 10:09] LABS: Zinc 72 mcg/dL (60-130)
[2023-08-01 06:28] LABS: Vitamin B1 7 nmol/L (8-30)
[2023-08-03 05:46] LABS: Vitamin A 28 mcg/dL (38-98)
== END 2023-07-26 08:45 | disposition home or self-care (01) ==
LOC: HO.LAB 08:44
PROVIDERS: PCP Internal Medicine; Visit Provider Physician Assistant Surgical
DX: Z90.3 Acquired absence of stomach [part of] (principal)
CPT/HCPCS: 36415; 80053; 80061; 82306; 82607; 82728; 82746; 83036; 83525; 83540; 84425; 84443; 84590; 84630; 85025; 86140

== ENCOUNTER 2023-09-25 14:29 | Outpatient (REF) | payer OTHER, SELFPAY | END 2023-09-25 14:30 | disposition home or self-care (01) | LOC: HO.MAMMO 14:29 | PROVIDERS: PCP Internal Medicine; Visit Provider Internal Medicine | DX: Z13.89 Encounter for screening for other disorder (principal) ==

== ENCOUNTER 2023-10-11 13:22 | Outpatient (AMB) | payer OTHER, SELFPAY ==
--- NOTE | 2023-10-11 13:48 | MHC.OFFVISWM ---
VS Expanded 10/11/23 13:54 BP 113/71 Blood Pressure Location Rt brachial Blood Pressure Position Sitting Pulse 74 Pulse Source Pulse Oximeter Temp 97.1 F Temperature Source Temporal Artery Scan Pulse Oximetry 97 Oxygen Delivery Method Room Air Height 5 ft 3 in Weight 197 lb 12.8 oz BMI 35.0 Body Fat % 41.6 Body Fat Mass 82.4 Fat Free Mass 115.4 Visceral Fat Rating 10.0 Body Water % 41.6 Body Water Mass 82.2 Muscle Mass/Score 109.6 Basal Metabolic Rate/Score 1,606 Intake Visit Reasons: (OV)PO LSG DOS 08/11/16 Allergies No Known Allergies [No Known Allergies*] Allergy (Verified 10/11/23 13:51) Medication List - Last Reconciled 10/11/23 by CARMELA Britton cholecalciferol (vitamin D3) 125 mcg PO DAILY [elbow sleeves As directed] lansoprazole 30 mg PO DAILY magnesium oxide 400 mg PO DAILY 30 days lzrgflaoodbg-ply-nenf-FA-vit K 45 mg iron- 800 mcg-120 mcg (Bariatric Multivitamins) 1 cap PO .once a day 90 days thiamine HCl (vitamin B1) 100 mg PO DAILY vitamin A palmitate 10,000 units PO DAILY [wrist splint As directed] HPI Comments Details: This?is a?43?yo female who is s/p LSG 08/11/2016. Weight gain of 4.6lbs since last OV on 07/20/2023. Pt reports a feeling of pressure, discomfort and some nausea and vomiting. Thought she had a virus but symptoms have persisted. This happens even with soft foods like scrambled eggs. Pt points to epigastrium when asked where she feels discomfort. Describes acid feeling. Takes lansoprazole. Present meal plan includes: given at last visit 7am 4 forks protein, 4 forks fruit/veg 12pm Fairlife or Premier shake 5pm dinner- 4 forks protein, 4 forks salad/veg 7pm Vietnamese yogurt Pt reports she is trying to eat better but still feels anxious to eat something did cut down on coffee intake- uses Splenda, 1% milk or Fairlife Exercise routine includes: bad trying to exercise PFSH Medical History Right median nerve neuropathy Ulnar neuropathy Neck pain Anxiety Thoracic spine pain Renal calculi Encounter for physical examination Epigastric pain Breast pain, right Hx of migraines History of tonsillitis Hx of dislocation of ankle Hx of endometritis Surgical History H/O knee surgery History of sleeve gastrectomy Status post hysteroscopic ablation of endometrium Family History Father No problems noted. Mother Diabetes mellitus Cervical cancer Daughter No problems noted. Daughter No problems noted. Brother Colon cancer Brother No problems noted. Sister No problems noted. Sister No problems noted. Sister No problems noted. Social History Household Members: Spouse, Family and Children Housing: House Alcohol intake: never Patient Tobacco Use Status: Never used Tobacco e-Cigarette/Vaping Use: Never Used Second Hand Smoke Exposure: No service: No Current occupational status: unemployed Cognitive needs: No Hearing needs: No Vision needs: No Physical Exam Vital Signs: Last Vital Signs Temp 97.1 F 10/11/23 13:54 Pulse 74 10/11/23 13:54 BP 113/71 10/11/23 13:54 Pulse Ox 97 10/11/23 13:54 Oxygen Delivery Method Room Air 10/11/23 13:54 BMI result Body Mass Index 35.0 Quality Reporting (2019) Adult ([facility] 138/06/29/68) Smoking risk assessment performed?: Yes Patient Tobacco Use Status: Never used Tobacco Assessment & Plan Assessment & Plan (1) Nausea: Code(s): R11.0 - Nausea Category: Medical (2) Obesity (BMI 30.0-34.9): Code(s): E66.9 - Obesity, unspecified Category: Medical (3) History of sleeve gastrectomy: Comment: August 2016 Code(s): Z90.3 - Acquired absence of stomach [part of] Category: Surgical Plan In further discussion, we identified some ways pt may still be low on protein- sometimes drinks Fairlife milk instead of shake, doesn't always finish dinner, sometimes skips meals. Pt wants to try this mealplan again. I discussed trialing a more strict plan of bars/shakes plus one meal, she will see how she does until next visit and then transition plan if no weight loss. Labs reviewed. UGI ordered for complaints of food intolerance / nausea. RTC once complete. Patient is obese and is not considered stable at this time. I spent a total of 30 minutes reviewing/updating records, examining the patient and counseling the patient on weight management as detailed above. Orders: Orders FL upper GI w air Today R11.0 - Nausea, Z90.3 - Acquired absence of stomach [part of]
[2023-10-11 13:54] VITALS: BP 113/71; PULSE 74; TEMP 36.2; O2SAT 97; BMI 35.0
== END 2023-10-11 14:31 | disposition home or self-care (01) ==
PROVIDERS: PCP Internal Medicine; Visit Provider Physician Assistant Surgical
DX: R11.0 Nausea (principal); E66.9 Obesity, unspecified; Z68.35 Body mass index [BMI] 35.0-35.9, adult; Z90.3 Acquired absence of stomach [part of]; Z98.84 Bariatric surgery status
CPT/HCPCS: 99214

== ENCOUNTER → 2023-10-11 13:22 | Outpatient (BNVA) | payer OTHER, SELFPAY | PROVIDERS: PCP Internal Medicine; Visit Provider Physician Assistant Surgical | DX: E66.9 Obesity, unspecified (principal); R11.0 Nausea; Z90.3 Acquired absence of stomach [part of]; Z68.35 Body mass index [BMI] 35.0-35.9, adult | CPT/HCPCS: 99212 ==

== ENCOUNTER 2023-10-26 08:35 | Outpatient (REF) | payer OTHER, SELFPAY ==
--- NOTE | ~2023-10-26 | FL_ITS ---
EXAMINATION: XR FLUOROSCOPY UPPER GI WITH AIR CLINICAL INFORMATION: Abdominal pain. Nausea. History of sleeve gastrectomy COMPARISON: None TECHNIQUE: Fluoroscopic air contrast upper GI examination was performed utilizing standard techniques with thin and thick barium and effervescent granules. Numerous spot images were obtained. 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 Dual and single contrast images of the esophagus demonstrate normal caliber, contour, and mucosal pattern. No evidence of stricture, mass, or ulcerations identified. Esophageal peristalsis was normal. No evidence of hiatus hernia identified. No significant gastroesophageal reflux was seen during the course of the examination and on reflux views. Dual contrast and single contrast images of the stomach demonstrated a contour consistent with prior history of sleeve gastrectomy. No masses or ulcerations are noted. Mild prominence of the gastric rugal folds. Contrast freely passed into the gastric antrum and duodenal bulb without delay. Single and air-contrast images of the duodenal bulb demonstrate no abnormality. The duodenal sweep has a normal appearance, course, and mucosal fold appearance. No malrotation. The imaged proximal jejunum has a normal fold pattern and caliber. Cholecystectomy clips are noted. FLUOROSCOPY TIME: 2 minutes 40 seconds Number of Spot Images: 8 Number of Cine: 9 DOSE AREA PRODUCT: 2064 uGy-m2 (microgray-meter squared) FL/FL upper GI w air IMPRESSION: 1. Expected appearance of the stomach post sleeve gastrectomy. Mild prominence of the rugal folds may indicate underlying gastritis. 2. Mild to moderate cricopharyngeal achalasia. 3. No definite hiatus hernia or witnessed gastroesophageal reflux. This procedure was performed by Cy Alexis PA-C, and supervised by Dr. Nathan
== END 2023-10-26 08:36 | disposition home or self-care (01) ==
LOC: HO.XRAY 08:35
PROVIDERS: PCP Internal Medicine; Visit Provider Physician Assistant Surgical
DX: R11.0 Nausea (principal); Z90.3 Acquired absence of stomach [part of]
CPT/HCPCS: 74246

== ENCOUNTER → 2023-10-26 08:36 | Outpatient (BNV) | payer OTHER, SELFPAY | PROVIDERS: PCP Internal Medicine; Visit Provider Physician Assistant Surgical | DX: R10.9 Unspecified abdominal pain (principal); Z90.3 Acquired absence of stomach [part of] | CPT/HCPCS: 74246 ==

== ENCOUNTER 2023-11-21 12:44 | Outpatient (AMB) | payer OTHER, SELFPAY ==
--- NOTE | 2023-11-21 12:24 | MHC.OFFVISWM ---
VS Expanded 11/21/23 12:40 Height 5 ft 3 in Weight 191 lb 4 oz BMI 33.9 Intake Visit Reasons: Telephone - F/U UGI testing results Allergies No Known Allergies [No Known Allergies*] Allergy (Verified 10/11/23 13:51) Medication List - Last Reconciled 11/21/23 by CARMELA Britton cholecalciferol (vitamin D3) 125 mcg PO DAILY [elbow sleeves As directed] lansoprazole 30 mg PO DAILY magnesium oxide 400 mg PO DAILY 30 days gocqqudqpyct-pvo-smxy-FA-vit K 45 mg iron- 800 mcg-120 mcg (Bariatric Multivitamins) 1 cap PO .once a day 90 days thiamine HCl (vitamin B1) 100 mg PO DAILY vitamin A palmitate 10,000 units PO DAILY [wrist splint As directed] HPI Comments Details: This?is a?43?yo female who is s/p LSG 08/11/2016. Weight at last visit on 10/11/2023 was 197.8 pounds. Weight today is 191.4 pounds, representing a 6.4 pound weight loss with a BMI today of 33.9.? At last visit pt reported a feeling of pressure, discomfort and some nausea and vomiting. Thought she had a virus but symptoms have persisted. This happens even with soft foods like scrambled eggs. Pt points to epigastrium when asked where she feels discomfort. Describes acid feeling. Takes lansoprazole. Present meal plan includes: 7am 4 forks protein, 4 forks fruit/veg 12pm Fairlife or Premier shake 5pm dinner- 4 forks protein, 4 forks salad/veg 7pm yogurt has been trying to drink slowly, not overeat; still has nausea and some pain even with protein shakes or water PFSH Medical History Right median nerve neuropathy Ulnar neuropathy Neck pain Anxiety Thoracic spine pain Renal calculi Encounter for physical examination Epigastric pain Breast pain, right Hx of migraines History of tonsillitis Hx of dislocation of ankle Hx of endometritis Surgical History H/O knee surgery History of sleeve gastrectomy Status post hysteroscopic ablation of endometrium Family History Father No problems noted. Mother Diabetes mellitus Cervical cancer Daughter No problems noted. Daughter No problems noted. Brother Colon cancer Brother No problems noted. Sister No problems noted. Sister No problems noted. Sister No problems noted. Social History Household Members: Spouse, Family and Children Housing: House Alcohol intake: never Patient Tobacco Use Status: Never used Tobacco e-Cigarette/Vaping Use: Never Used Second Hand Smoke Exposure: No service: No Current occupational status: unemployed Cognitive needs: No Hearing needs: No Vision needs: No Quality Reporting (2019) Adult ([facility] 138/06/29/68) Smoking risk assessment performed?: Yes Patient Tobacco Use Status: Never used Tobacco Telehealth Telehealth Telehealth Platform: Telephone Location of provider rendering services: practice address Location of patient: other Patient Identification confirmed using: Name, : Yes Telehealth method: voice only Patient verbally consented to treatment: Yes Patient verbally consented to billing insurance company: Yes Patient informed of any privacy concerns related to visit: Yes Minutes spent on Phone/Video with Pt.: 15 Results Reviewed Results Reviewed: Ordering Physician: Viviana Adhikari Date of Service: 10/26/23 Procedure(s): FL upper GI w air Accession Number(s): [id number] cc: Viviana Adhikari; Denise Dsouza MD~ EXAMINATION: XR FLUOROSCOPY UPPER GI WITH AIR CLINICAL INFORMATION: Abdominal pain. Nausea. History of sleeve gastrectomy COMPARISON: None TECHNIQUE: Fluoroscopic air contrast upper GI examination was performed utilizing standard techniques with thin and thick barium and effervescent granules. Numerous spot images were obtained. 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 Dual and single contrast images of the esophagus demonstrate normal caliber, contour, and mucosal pattern. No evidence of stricture, mass, or ulcerations identified. Esophageal peristalsis was normal. No evidence of hiatus hernia identified. No significant gastroesophageal reflux was seen during the course of the examination and on reflux views. Dual contrast and single contrast images of the stomach demonstrated a contour consistent with prior history of sleeve gastrectomy. No masses or ulcerations are noted. Mild prominence of the gastric rugal folds. Contrast freely passed into the gastric antrum and duodenal bulb without delay. Single and air-contrast images of the duodenal bulb demonstrate no abnormality. The duodenal sweep has a normal appearance, course, and mucosal fold appearance. No malrotation. The imaged proximal jejunum has a normal fold pattern and caliber. Cholecystectomy clips are noted. FLUOROSCOPY TIME: 2 minutes 40 seconds Number of Spot Images: 8 Number of Cine: 9 DOSE AREA PRODUCT: 2064 uGy-m2 (microgray-meter squared) FL/FL upper GI w air IMPRESSION: 1. Expected appearance of the stomach post sleeve gastrectomy. Mild prominence of the rugal folds may indicate underlying gastritis. 2. Mild to moderate cricopharyngeal achalasia. 3. No definite hiatus hernia or witnessed gastroesophageal reflux. Assessment & Plan Assessment & Plan (1) Obesity (BMI 30.0-34.9): Code(s): E66.9 - Obesity, unspecified Category: Medical (2) Abdominal pain: Code(s): R10.9 - Unspecified abdominal pain Category: Medical (3) History of sleeve gastrectomy: Comment: August 2016 Code(s): Z90.3 - Acquired absence of stomach [part of] Category: Surgical (4) Nausea: Code(s): R11.0 - Nausea Category: Medical Plan Pt has lost weight following higher protein meal plan with more shakes and soft foods but continues to have pain and nausea. Based on UGI results I think she will benefit from endoscopy to assess possible inflammation noted. Will discuss with Dr. Fuentes In the meantime recommended meal plan with primarily protein shakes, continuing to drink slowly over 2 hours and one small meal per day with soft proteins like yogurt (pt asked for alternatives to Lithuanian yogurt, I suggested trying Liberian yogurt) or scrambled eggs. Continue PPI. I spent a total of 30 minutes reviewing/updating records, examining the patient and counseling the patient on weight management as detailed above.
[2023-11-21 12:40] VITALS: BMI 33.9
== END 2023-11-21 12:46 | disposition home or self-care (01) ==
LOC: HO.HBS 12:44
PROVIDERS: PCP Internal Medicine; Visit Provider Physician Assistant Surgical
DX: E66.9 Obesity, unspecified (principal); Z68.33 Body mass index [BMI] 33.0-33.9, adult; R10.9 Unspecified abdominal pain; R11.0 Nausea; Z90.3 Acquired absence of stomach [part of]
CPT/HCPCS: 99214; G2211

== ENCOUNTER → 2023-11-21 12:44 | Outpatient (BNVA) | payer OTHER, SELFPAY | PROVIDERS: PCP Internal Medicine; Visit Provider Physician Assistant Surgical ==

== ENCOUNTER 2024-02-05 11:13 | Outpatient (AMB) | payer OTHER, SELFPAY ==
--- NOTE | 2024-02-05 11:18 | MHC.OFFVIS ---
Vital Signs 02/05/24 11:19 Height 5 ft 3 in Weight 184 lb 4 oz BMI 32.6 BP 102/58 L Blood Pressure Location Rt brachial Position Sitting Respiration 16 Pulse 86 Pulse Source Pulse Oximeter Pulse Oximetry (%) 98 Oxygen Delivery Method Room Air Intake Visit Reasons: 4month f/u Polyneuropathy Intake Note: Pt presents to the office for a 9 month follow up for polyneuropathy. Water Attendant Required: No Allergies No Known Allergies [No Known Allergies*] Allergy (Verified 02/05/24 11:19) Medication List - Last Reconciled 02/05/24 by Aminta Wilkerson MD cholecalciferol (vitamin D3) 125 mcg PO DAILY [elbow sleeves As directed] lansoprazole 30 mg PO DAILY magnesium oxide 400 mg PO DAILY 30 days xoeuechcdkro-bpe-vdga-FA-vit K 45 mg iron- 800 mcg-120 mcg (Bariatric Multivitamins) 1 cap PO .once a day 90 days thiamine HCl (vitamin B1) 100 mg PO DAILY vitamin A palmitate 10,000 units PO DAILY [wrist splint As directed] HPI Comments Details: 43 y/o right handed female comes for follow up of carpal tunnel, ulnar neuropathy and migraine. she reports increase in headaches 3/week. It starts with pressure above her eyes and then has neck, whole head pressure unilateral , with photophobia, phonophobia nausea, blurry vision, with visual aura.It can last the whole day. she takes sumatriptan 25mg ( her moms prescription ) EMG result was c/w mild ulnar neuropathy bilaterally and mild median neuropathy on the right. She feels numbness and tingling on her bilateral arms ,and occasional heaviness on her left arm.she feels her symptoms are worse. [facility], [facility] Medical History (Updated 02/05/24 @ 11:52 by Aminta Wilkerson MD) Migraine with aura Right median nerve neuropathy Ulnar neuropathy Neck pain Anxiety Thoracic spine pain Renal calculi Encounter for physical examination Epigastric pain Breast pain, right Hx of migraines History of tonsillitis Hx of dislocation of ankle Hx of endometritis Surgical History H/O knee surgery History of sleeve gastrectomy Status post hysteroscopic ablation of endometrium Family History Father No problems noted. Mother Diabetes mellitus Cervical cancer Daughter No problems noted. Daughter No problems noted. Brother Colon cancer Brother No problems noted. Sister No problems noted. Sister No problems noted. Sister No problems noted. Social History Household Members: Spouse, Family and Children Housing: House Alcohol intake: never Patient Tobacco Use Status: Never used Tobacco e-Cigarette/Vaping Use: Never Used Second Hand Smoke Exposure: No service: No Current occupational status: unemployed Cognitive needs: No Hearing needs: No Vision needs: No Physical Exam Vital Signs: Last Vital Signs Pulse 86 02/05/24 11:19 Resp 16 02/05/24 11:19 BP 102/58 L 02/05/24 11:19 Pulse Ox 98 02/05/24 11:19 Oxygen Delivery Method Room Air 02/05/24 11:19 BMI result Body Mass Index 32.6 Const General: cooperative, healthy appearing and comfortable Nutritional Appearance: obese Orientation/consciousness: patient oriented x3 Limitations: no limitations HEENT Other: mild neck tightness Eyes Pupils: Equal, round and reactive pupils present Neuro General: patient oriented x3, tone normal, moves all extremities and no focal motor deficits Cranial nerves: Yes Facial sensation intact/muscles of mastication intact, Yes Equal, round and reactive pupils present, Yes Bilaterally intact EOM present, Yes Nystagmus not present, Yes Normal facial strength present and Yes Midline tongue present Cognition (Neuro): normal cognition Gait exam (Neuro): Normal gait present Motor exam (neuro): 5/5 motor strength present throughout and Normal motor muscle tone present throughout Deep tendon reflexes (DTR's): Right triceps reflex intensity grade: 1+, Left triceps reflex intensity grade: 1+, Rt Biceps (C5, C6): 1+, Left biceps reflex intensity grade: 1+, Right brachioradialis reflex intensity grade: 1+, Left brachioradialis reflex intensity grade: 1+, Right patellar reflex intensity grade: 1+ and Left patellar reflex intensity grade: 1+ Coordination: cfqgky-yr-obbz test normal Psych Appearance: grossly normal Quality Reporting (2019) Adult ([facility] 138/2/) Smoking risk assessment performed?: Yes Patient Tobacco Use Status: Never used Tobacco Assessment & Plan Assessment & Plan (1) Migraine with aura: Code(s): G43.109 - Migraine with aura, not intractable, without status migrainosus Category: Medical Qualifiers: Intractability: not intractable Status migrainosus presence: without status migrainosus Qualified Code(s): G43.109 - Migraine with aura, not intractable, without status migrainosus (2) Ulnar neuropathy: Comment: bilateral at the elbow Code(s): G56.20 - Lesion of ulnar nerve, unspecified upper limb Category: Medical (3) Neck pain: Code(s): M54.2 - Cervicalgia Category: Medical Plan I will evaluate her with c spine X ray I will start her on sumatriptan 50mg as needed for migraine continue magnesium 400mg qhd PT for neck pain Amitriptyline 10mg qhs Orders: Orders XR cervical spine 4V Today M54.2 - Cervicalgia PT Evaluation and Treatment Today M54.2 - Cervicalgia Medications: New amitriptyline 10 mg PO BEDTIME 30 tabs 6RF sumatriptan succinate take 1 tab at onset of headache; if no relief may repeat 1 tab after at least 2 hrs; max = 4 tabs/24 hr PO 14 tabs 6RF Coding Level of Care Code Est Pt Level 4 (77610) Complex EM visit Add On G2211 Diagnoses Migraine with aura and without status migrainosus, not intractable G43.109 Intractability: not intractable Status migrainosus presence: without status migrainosus Ulnar neuropathy G56.20 Neck pain M54.2
[2024-02-05 11:19] VITALS: BP 102/58; PULSE 86; RESP 16; O2SAT 98; BMI 32.6
== END 2024-02-05 12:00 | disposition home or self-care (01) ==
PROVIDERS: PCP Internal Medicine; Visit Provider Psychiatry & Neurology Neurology
DX: G43.109 Migraine with aura, not intractable, without status migrainosus (principal); G56.20 Lesion of ulnar nerve, unspecified upper limb; M54.2 Cervicalgia
CPT/HCPCS: 99214; G2211

== ENCOUNTER → 2024-02-05 11:13 | Outpatient (BNVA) | payer OTHER, SELFPAY | PROVIDERS: PCP Internal Medicine; Visit Provider Psychiatry & Neurology Neurology | DX: G56.23 Lesion of ulnar nerve, bilateral upper limbs (principal); G43.109 Migraine with aura, not intractable, without status migrainosus; M54.2 Cervicalgia | CPT/HCPCS: 99212 ==

== ENCOUNTER 2024-02-13 13:26 | Outpatient (AMB) | payer OTHER, SELFPAY ==
--- NOTE | 2024-02-13 13:28 | A.OFFPC_ITS ---
Vital Signs 02/13/24 13:29 Height 5 ft 3 in Weight 186 lb BMI 32.9 BP 118/60 Blood Pressure Location Lt brachial Position Sitting Intake Visit Reasons: annual exam Intake Note: Patient here for an Annual Physical Exam School Child Care Attendant Required: No Accompanied by: Self / Same As Patient Allergies No Known Allergies [No Known Allergies*] Allergy (Verified 02/13/24 14:05) Medication List - Last Reconciled 02/13/24 by Denise Lew MD amitriptyline 10 mg PO BEDTIME cholecalciferol (vitamin D3) 125 mcg PO DAILY [elbow sleeves As directed] lansoprazole 30 mg PO DAILY magnesium oxide 400 mg PO DAILY 30 days pbcdwljzdwxq-foh-zszm-FA-vit K 45 mg iron- 800 mcg-120 mcg (Bariatric Multivitamins) 1 cap PO .once a day 90 days sumatriptan succinate take 1 tab at onset of headache; if no relief may repeat 1 tab after at least 2 hrs; max = 4 tabs/24 hr PO thiamine HCl (vitamin B1) 100 mg PO DAILY vitamin A palmitate 10,000 units PO DAILY [wrist splint As directed] Tobacco use date assessed: 02/13/24 Dental Screening Dental Screen Date: 12/29/22 HPI HPI Comments History of Present Illness Details This is a 43-year-old female that comes for her physical exam. Mammogram done 2022. She is still breast-feeding her 5-year-old son. Pap smear done 2020. She complains of right hip pain that has been present for few weeks with no previous trauma. She also has palpitations. She is obese with a BMI of 32.9 and has been doing diet and exercise with no improvement. Had weight loss surgery few years ago. Will start her on Wegovy. No chest pain or shortness on breath. [facility] Medical History (Updated 02/13/24 @ 17:06 by Denise Lew MD) Migraine with aura Right median nerve neuropathy Ulnar neuropathy Neck pain Anxiety Thoracic spine pain Renal calculi Encounter for physical examination Epigastric pain Breast pain, right Hx of migraines History of tonsillitis Hx of dislocation of ankle Hx of endometritis Surgical History H/O knee surgery History of sleeve gastrectomy Status post hysteroscopic ablation of endometrium Family History Father No problems noted. Mother Diabetes mellitus Cervical cancer Daughter No problems noted. Daughter No problems noted. Brother Colon cancer Brother No problems noted. Sister No problems noted. Sister No problems noted. Sister No problems noted. Social History Household Members: Spouse, Family and Children Housing: House Alcohol intake: never Patient Tobacco Use Status: Never used Tobacco e-Cigarette/Vaping Use: Never Used Second Hand Smoke Exposure: No service: No Current occupational status: unemployed Cognitive needs: No Hearing needs: No Vision needs: No Questionnaire PHQ-9 Over the last 2 weeks, how often have you been bothered by any of the following problems? 1. Little interest or pleasure in doing things: more than half the days 2. Feeling down, depressed, or hopeless: not at all 3. Trouble falling or staying asleep, or sleeping too much: not at all 4. Feeling tired or having little energy: more than half the days 5. Poor appetite or overeating: more than half the days 6. Feeling bad about yourself - or that you are a failure or have let yourself or your family down: not at all 7. Trouble concentrating on things, such as reading the newspaper or watching television: not at all 8. Moving or speaking so slowly that other people could have noticed. Or the opposite - being so fidgety or restless that you have been moving around a lot more than usual: not at all 9. Thoughts that you would be better off or of hurting yourself in some way: not at all Total score: 6 Depression Screening Interpretation: Positive Depression Screening Follow-up: Existing condition, In treatment and Follow-up Visit Requested Depression Screening Done: Yes 37568 - PHQ-9 Billing: Yes Source: Developed by Drs. Brandon Sotelo, Daphne Retana, Lawson Martin and colleagues, with an educational omid from [employer]. Thrive Questionnaire Date Thrive assessed: 02/13/24 I am a: Patient What is your living situation today?: I have a steady place to live Within the past 12 months, did the food you bought not last and you didn't have the money to get more?: Never true Within the past 12 months, did you worry whether your food would run out before you got money to buy more?: I choose not to answer this question Do you have trouble paying for medicines?: No Do you have trouble getting transportation to medical appointments?: No Do you have trouble paying your heating and electricity bill?: No Do you have trouble taking care of your child, family member or friend?: No Do you have trouble with day-to-day activities such as bathing, preparing meals, shopping, managing finances, etc.?: No Are you currently unemployed and looking for a job?: I choose not to answer this question Are you interested in more education?: I choose not to answer this question Please select the resources that you would like help with: None Currently or been in a relationship where the following occur: No concerns reported THRIVE Score: 0 AUDIT C Alcohol Use Questionnaire (AUDIT-C) 1. How often do you have a drink containing alcohol?: Never Total Score: 0 Score Reviewed/Action Taken: No MARYCHUY-7 AMB Questionnaire MARYCHUY-7 Date MARYCHUY - 7 assessed: 02/13/24 Feeling nervous, anxious, or on edge: 0 = Not at all Not being able to stop or control worryin = Not at all Worrying too much about different things: 0 = Not at all Trouble relaxin = Not at all Being so restless that it is hard to sit still: 0 = Not at all Becoming easily annoyed or irritable: 0 = Not at all Feeling afraid as if something awful might happen: 0 = Not at all Total MARYCHUY-7 score (0-4 normal; 5-9 mild; 10-14 moderate; 15-21 severe): 0 Source: Developed by Drs. Brandon Sotelo, Daphne Retana, Lawson Martin and colleagues, with an educational omid from [employer]. MARYCHUY-7 Assessment Billing MARYCHUY-7 Assessment Tool: MARYCHUY-7 Assessment 86190 Review of Systems Const All systems reviewed & are unremarkable except as noted in HPI and below Card Denies chest pain at rest, Denies chest pain with activity, Denies edema, Denies irregular heart rhythm, Denies claudication, Denies dyspnea, Denies dyspnea on exertion, Denies orthopnea, Denies paroxysmal nocturnal dyspnea and Denies slow heart rate Resp Denies cough, Denies dyspnea and Denies dyspnea on exertion GI Denies abdominal pain, Denies change in bowel habits, Denies excessive flatus, Denies nausea and Denies vomiting Physical exam (Primary Care) Vital Signs: Last Vital Signs BP 118/60 02/13/24 13:29 BMI result Body Mass Index 32.9 BMI Assessment/Plan discussion: High BMI High, discussed plan: lifestyle, weight reduction, dietary and physical activity Tobacco/Smoking Status: Tobacco use Status Tobacco use date assessed 02/13/24 02/13/24 13:34 Patient Tobacco Use Status Never used Tobacco 02/13/24 13:34 e-Cigarette/Vaping Use Never Used 02/13/24 13:34 PHQ-9: PHQ-9 Score PHQ-9: Total score 6 02/13/24 14:20 Depression Screening Interpretation: Positive Depression Screening Follow-up: Existing condition, In treatment and Follow-up Visit Requested Thrive Assessment: Date of Thrive Assessment Date Thrive assessed 02/13/24 02/13/24 13:34 Currently or been in a relationship where the following occur: No concerns reported [facility] Head: Yes normal to inspection, Yes normocephalic and Yes atraumatic Ears: external ears normal General nose exam: Normal external nose present and No nasal discharge present Face and sinus: Yes sinuses nontender Mouth: lip normal Eyes General: appearance normal, both eyes and all related structures Eyelids: Yes eyelids normal Conjunctivae: conjunctivae normal Neck Neck: Yes normal visual inspection and Yes supple Resp Effort & Inspection: normal respiratory effort Auscultation: clear to auscultation bilaterally Cardio Jugular venous distension: no JVD Rate: regular rate Rhythm: regular rhythm Heart sounds: S1 normal heart sound present and S2 normal heart sound present GI Inspection: Yes normal to inspection Palpation (GI): Soft to palpation and nontender Auscultation: normal bowel sounds Skin General skin exam: no rashes or lesions noted Neuro General: no focal motor deficits Extrem General: Yes full ROM Psych Appearance: grossly normal Office Procedures Flu Questionnaire Does the patient have a severe egg allergy?: No Does the patient have severe life threatening allergies?: No Does the patient have a fever or illness today?: No Has the patient ever had Guillain-Hazleton Syndrome?: No Has the patient ever had any past reaction to a flu shot?: No Immunizations Fluarix Triv [id number] (PF) 45 mcg (15 mcg x 3)/0.5 mL IM syringe Performing Provider: Denise Lew MD [facility] Administered by: LILLIANA Bautista on 02/13/24 14:20 Dose Route Admin Location Dispensed Lot Number Expiration Date NDC Diaper Machine Tender 0.5 mL IM Left Deltoid 0.5 mL [id number] 11/04/24 11433-652-87 [email or web address] VIS Given Date VIS Provided VIS Publication Date 02/13/24 Single Vaccine 20 Eligibility Eligibility Date Funding Source Not [facility] Eligible 02/13/24 Private Coding Level of Care Code Est Pt Level 3 (70877) Est Pt Prev Care 40-64y(12601) Diagnoses Physical exam Z00.00 Class 1 obesity due to excess calories without serious comorbidity with body mass index (BMI) of 32.0 to 32.9 in adult E66.811; E66.09; Z68.32 Obesity type: due to excess calories Serious obesity comorbidity presence: without serious comorbidity Palpitations R00.2 Right hip pain M25.551 Additional Codes MARYCHUY-7 Assessment Billing - MARYCHUY-7 Assessment Tool: MARYCHUY-7 Assessment 19468 ([id number]) Time Spent (min) 34 Assessment & Plan Assessment & Plan (1) Physical exam: Code(s): Z00.00 - Encounter for general adult medical examination without abnormal findings Category: Medical Plan: Repeat in a year. (2) Class 1 obesity with body mass index (BMI) of 32.0 to 32.9 in adult: Code(s): E66.811 - Obesity, class 1; Z68.32 - Body mass index [BMI] 32.0-32.9, adult Category: Medical Qualifiers: Obesity type: due to excess calories Serious obesity comorbidity presence: without serious comorbidity Qualified Code(s): E66.811 - Obesity, class 1; E66.09 - Other obesity due to excess calories; Z68.32 - Body mass index [BMI] 32.0-32.9, adult Plan: Start wegovy. BMI goal is less than 30. (3) Palpitations: Code(s): R00.2 - Palpitations Category: Medical Plan: EKG ordered. (4) Right hip pain: Code(s): M25.551 - Pain in right hip Category: Medical Plan: X-ray ordered. Orders: Orders Influenza [id number] Immunization Today Z23 - Encounter for immunization ECG 12 lead EKG Today R00.2 - Palpitations XR hip RT min 2V Today M25.551 - Pain in right hip Lipid Panel Today E78.5 - Hyperlipidemia, unspecified Vitamin B12 and Folate Today E53.8 - Deficiency of other specified B group vitamins Vitamin D 25-OH Total Today E55.9 - Vitamin D deficiency, unspecified Complete Blood Count Auto Diff Today D64.9 - Anemia, unspecified IRON PROFILE Today D64.9 - Anemia, unspecified Thyroid Stimulating Hormone Today R00.2 - Palpitations Vitamin B1 Today E51.9 - Thiamine deficiency, unspecified Vitamin A Today E50.9 - Vitamin A deficiency, unspecified Comprehensive [place]. Panel Fast Today Z00.00 - Encounter for general adult medical examination without abnormal findings Medications: New semaglutide (weight loss) (Ruy) administer weeks 1 through 4 of therapy 0.25 mg (0.5 mL) subcut QWEEK 2 mL 0RF 4 weeks E66.811 - Obesity, class 1, Z68.32 - Body mass index [BMI] 32.0- 32.9, adult Refilled thiamine HCl (vitamin B1) 100 mg PO DAILY 90 tabs 3RF cholecalciferol (vitamin D3) 125 mcg PO DAILY 90 caps 3RF vitamin A palmitate 10,000 units PO DAILY 90 caps 3RF
[2024-02-13 13:29] VITALS: BP 118/60; BMI 32.9
== END 2024-02-13 14:33 | disposition home or self-care (01) ==
PROVIDERS: PCP Internal Medicine; Visit Provider Internal Medicine
DX: Z00.00 Encounter for general adult medical examination without abnormal findings (principal); R00.2 Palpitations; M25.551 Pain in right hip; E66.811 Obesity, class 1; Z68.32 Body mass index [BMI] 32.0-32.9, adult; Z23 Encounter for immunization

== ENCOUNTER → 2024-02-13 13:26 | Outpatient (BNVA) | payer OTHER, SELFPAY | PROVIDERS: PCP Internal Medicine; Visit Provider Internal Medicine | DX: Z00.01 Encounter for general adult medical examination with abnormal findings (principal); Z23 Encounter for immunization; E66.811 Obesity, class 1; Z68.32 Body mass index [BMI] 32.0-32.9, adult; R00.2 Palpitations; M25.551 Pain in right hip; Z71.3 Dietary counseling and surveillance | CPT/HCPCS: 90471; 90656; 96127; 99212; 99396 ==

== ENCOUNTER 2024-02-15 08:46 | Outpatient (REF) | payer OTHER, SELFPAY ==
--- NOTE | ~2024-02-15 | XR_ITS ---
EXAMINATION: XR HIP, RIGHT CLINICAL INFORMATION: Pain in the right hip COMPARISON: None available. TECHNIQUE: Two views of the right hip. FINDINGS: No fracture. Alignment is anatomic. Hip joint space is maintained. Soft tissues are unremarkable. XR/XR hip RT min 2V IMPRESSION: Normal right hip. Electronically signed by: Placido Eddy MD 02/21/2024 11:14 AM EDT
--- NOTE | ~2024-02-15 | XR_ITS ---
EXAMINATION: XR CERVICAL SPINE 5 VIEWS CLINICAL INFORMATION: Cervicalgia M54.2. COMPARISON: CT Cervical spine without IV contrast 10/10/2017 TECHNIQUE: 5 views of the cervical spine. FINDINGS: Straightening of the cervical curvature. No evidence of acute fracture or subluxation. No prevertebral soft tissue swelling. Vertebral body heights are maintained. Disc spaces are maintained. C7-T1 facet degeneration. XR/XR cervical spine 4V IMPRESSION: No acute osseous abnormality. Degenerative changes as above. Study is assigned for dictation on April 17, 2024 Electronically signed by: Khanh Haas MD 04/17/2024 11:58 AM [facility]ACE Workstation: [id number]
[2024-02-15 09:06] LABS: MANUAL DIFF FLAG NO
[2024-02-15 10:04] LABS: Basophils Percent Auto 0.5 % (0-2); Eosinophils Absolute Auto 0.1 X10*3/uL (0.0-0.4); Eosinophils Percent Auto 0.9 % (0-4); Hematocrit 37.2 % (37.0-47.0); Hemoglobin 12.3 g/dl (12.0-16.0); Imm Gran Abs Auto 0.03 X10*3/uL (0.00-0.03); Imm Gran Pct Auto 0.4 % (0.0-0.4); Lymphocytes Absolute Auto 1.9 X10*3/uL (1.2-4.9); Lymphocytes Percent Auto 25.9 % (20-40); Mean Corpuscular HGB Conc 33.1 g/dl (31.0-35.0); Mean Corpuscular Hemoglobin 29.5 pg (27.0-33.0); Mean Corpuscular Volume 89.2 fL (80.0-98.0); Mean Platelet Volume 10.5 fL (9.4-12.3); Monocytes Absolute Auto 0.6 X10*3/uL (0.1-1.2); Monocytes Percent Auto 7.7 % (2-11); Neutrophils Absolute Auto 4.8 x10*3/uL (2.0-8.3); Neutrophils Percent Auto 64.6 % (45-73); Platelet Count 224 X10*3/uL (160-400); Red Blood Count 4.17 X10*6/uL (4.20-5.50); Red Cell Distribution Width 13.2 % (11.0-16.0); White Blood Count 7.4 X10*3/uL (4.8-10.8)
[2024-02-15 10:59] LABS: Alanine Aminotransferase 19 U/L (0-31); Albumin Level 3.6 g/dL (3.5-5.0); Alkaline Phosphatase 77 U/L (39-117); Anion Gap 9 (12-20); Aspartate Amino Transferase 19 U/L (5-31); Bilirubin Total 0.4 mg/dL (0.0-1.0); Blood Urea Nitrogen 13 mg/dL (9-16); Calcium 8.9 mg/dL (8.4-10.2); Carbon Dioxide 30 mmol/L (22-29); Chloride 106 mmol/L (96-108); Cholesterol 180 mg/dL (<200); Estimated Glomerular Filt Rate > 60; Glucose Fasting 88 mg/dL (60-99); HDL Cholesterol 38 mg/dL (>40); Iron 65 mcg/dL (30-160); LDL Cholesterol Calculated 129 mg/dL (<100); Percent Iron Saturation 30 % (15-50); Potassium 3.8 mmol/L (3.3-5.1); Sodium 141 mmol/L (135-145); Thyroid Stimulating Hormone 0.62 uIU/mL (0.32-4.0); Total Iron Binding Capacity 217 mcg/dL (228-428); Total Protein 6.7 g/dL (6.5-8.0); Triglycerides 69 mg/dL (<150); Unsaturated Iron Binding 152 ug/dL; Vitamin D 25-OH Total 22.7 ng/mL (>30)
[2024-02-15 11:22] LABS: Folate 14.6 ng/mL (> or = 4.0); Vitamin B12 831 pg/mL (200-900)
[2024-02-21 03:09] LABS: Vitamin A 26 mcg/dL (38-98)
[2024-02-21 15:38] LABS: Vitamin B1 8 nmol/L (8-30)
== END 2024-02-15 08:47 | disposition home or self-care (01) ==
LOC: HO.XRAY 08:46
PROVIDERS: Absent Provider Internal Medicine Hypertension Specialist; PCP Internal Medicine; Visit Provider Internal Medicine
DX: Z00.00 Encounter for general adult medical examination without abnormal findings (principal); E78.5 Hyperlipidemia, unspecified; D64.9 Anemia, unspecified; E51.9 Thiamine deficiency, unspecified; E53.8 Deficiency of other specified B group vitamins; E55.9 Vitamin D deficiency, unspecified; R00.2 Palpitations; E50.9 Vitamin A deficiency, unspecified; M25.551 Pain in right hip; M54.2 Cervicalgia
CPT/HCPCS: 36415; 72050; 73502; 80053; 80061; 82306; 82607; 82746; 83540; 84425; 84443; 84590; 85025

== ENCOUNTER 2024-03-05 13:32 | Outpatient (AMB) | payer OTHER, SELFPAY ==
[2024-03-05 13:34] VITALS: BP 110/60; PULSE 89; TEMP 36.9; O2SAT 98; BMI 32.9
--- NOTE | 2024-03-05 13:34 | AM.OFFWIN_ITS ---
Intake Vital Signs 03/05/24 13:34 Height 5 ft 3 in Weight 186 lb BMI 32.9 BP 110/60 Blood Pressure Location Lt brachial Position Sitting Pulse 89 Pulse Source Pulse Oximeter Temp 98.5 F Temp Source Oral Pulse Oximetry (%) 98 Oxygen Delivery Method Room Air Intake Visit Reasons: EP Sore throat, ear pain, aches, migraine Intake Note: pt is here for c/o neck pain, ear pain, with migraine Patient Tobacco Use Status: Never used Tobacco Allergies No Known Allergies [No Known Allergies*] Allergy (Verified 03/05/24 13:34) Do you need a note to return to daycare/school/sports/work: No HPI HPI Comments History of Present Illness Details 43 y/o female patient who presents to [facility] walk [facility] with c/o URI symptoms since Monday. Reports high fevers at home, sore-throat, and body/joints pain. ON LICENSE OF [facility] Medical History (Updated 02/13/24 @ 17:06 by Denise Lew MD) Migraine with aura Right median nerve neuropathy Ulnar neuropathy Neck pain Anxiety Thoracic spine pain Renal calculi Encounter for physical examination Epigastric pain Breast pain, right Hx of migraines History of tonsillitis Hx of dislocation of ankle Hx of endometritis Surgical History H/O knee surgery History of sleeve gastrectomy Status post hysteroscopic ablation of endometrium Family History Father No problems noted. Mother Diabetes mellitus Cervical cancer Daughter No problems noted. Daughter No problems noted. Brother Colon cancer Brother No problems noted. Sister No problems noted. Sister No problems noted. Sister No problems noted. Social History Household Members: Spouse, Family and Children Housing: House Alcohol intake: never Patient Tobacco Use Status: Never used Tobacco e-Cigarette/Vaping Use: Never Used Second Hand Smoke Exposure: No service: No Current occupational status: unemployed Cognitive needs: No Hearing needs: No Vision needs: No Review of Systems Const All systems reviewed & are unremarkable except as noted in HPI and below Physical Exam Vital Signs: Last Vital Signs Temp 98.5 F 10/29/24 13:34 Pulse 89 03/05/24 13:34 BP 110/60 03/05/24 13:34 Pulse Ox 98 03/05/24 13:34 Oxygen Delivery Method Room Air 03/05/24 13:34 BMI result Body Mass Index 32.9 Const General: cooperative and no acute distress Orientation/consciousness: patient oriented x3 HEENT Head: Yes normocephalic Ears: external ears normal and TM abnormal bulging and with fluid behind the TM General nose exam: Normal external nose present Face and sinus: Yes sinuses nontender Mouth: Abnormal oral and palatal mucosa present erythematous and white patches Throat: Yes uvula midline, Yes abnormal tonsil (Tonsils surgically absent) and Yes postnasal drainage Resp Effort & Inspection: normal respiratory effort and able to speak in complete sentences Auscultation: clear to auscultation bilaterally, no crackles, no rales, no rhonchi and no wheezes Cardio Heart sounds: S1 normal heart sound present and S2 normal heart sound present Neuro General: patient oriented x3 Assessment & Plan Assessment & Plan (1) Acute bacterial pharyngitis: Code(s): J02.8 - Acute pharyngitis due to other specified organisms; B96.89 - Other specified bacterial agents as the cause of diseases classified elsewhere Plan: Ordered PCN Ordered SARs Rapid Strep negative. Exam consistent with pharyngitis. Bacterial vs Viral. (2) Acute respiratory infection: Code(s): J22 - Unspecified acute lower respiratory infection Plan: Ordered SARs Rest and hydrate well OTC sorethroat remedies. Orders: Orders SARS-CoV2/FLU/RSV Today J22 - Unspecified acute lower respiratory infection Medications: New amoxicillin 500 mg PO BID 10 caps 0RF 5 days B96.89 - Other specified bacterial agents as the cause of diseases classified elsewhere, J02.8 - Acute pharyngitis due to other specified organisms Coding Level of Care Code Est Pt Level 3 (85684) Diagnoses Acute bacterial pharyngitis J02.8; B96.89 Acute respiratory infection J22 Time Spent (min) 15
== END 2024-03-05 14:25 | disposition home or self-care (01) ==
PROVIDERS: PCP Internal Medicine; Visit Provider Nurse Practitioner Family
DX: J02.8 Acute pharyngitis due to other specified organisms (principal); B96.89 Other specified bacterial agents as the cause of diseases classified elsewhere; J22 Unspecified acute lower respiratory infection

== ENCOUNTER 2024-03-05 13:32 | Outpatient (REF) | payer OTHER, SELFPAY ==
[2024-03-05 18:10] LABS: Influenza A PCR NEGATIVE (Negative); Influenza B PCR NEGATIVE (Negative); Resp Syncy Virus RNA Qual PCR NEGATIVE (Negative); SARS COV2 PCR INHOUSE NEGATIVE (Negative)
== END 2024-03-05 13:33 | disposition home or self-care (01) ==
LOC: HO.LAB 13:32
PROVIDERS: PCP Internal Medicine; Visit Provider Nurse Practitioner Family
DX: J22 Unspecified acute lower respiratory infection (principal); J02.9 Acute pharyngitis, unspecified
CPT/HCPCS: 0241U; 99212

== ENCOUNTER 2024-06-18 10:53 | Outpatient (AMB) | payer OTHER, SELFPAY ==
--- NOTE | 2024-06-18 11:06 | A.OFFVIS_ITS ---
VS Expanded 06/18/24 11:11 BP 107/55 L Blood Pressure Location Rt brachial Blood Pressure Position Sitting Pulse 76 Pulse Source Pulse Oximeter Temp 98.1 F Temperature Source Temporal Artery Scan Pulse Oximetry 100 Height 5 ft 3 in Weight 172 lb 9.6 oz BMI 30.6 Body Fat % 40.4 Body Fat Mass 69.6 Fat Free Mass 102.8 Visceral Fat Rating 8.0 Body Water % 42.6 Body Water Mass 73.4 Muscle Mass/Score 97.4 Basal Metabolic Rate/Score 1,433 Intake Visit Reasons: (OV) LSG DOS 08/11/16 Allergies No Known Allergies [No Known Allergies*] Allergy (Verified 06/18/24 11:07) Medication List - Last Reconciled 06/18/24 by CARMELA Britton cholecalciferol (vitamin D3) 125 mcg PO DAILY [elbow sleeves As directed] ibuprofen 800 mg PO Q8H PRN 30 days lansoprazole 30 mg PO DAILY magnesium oxide 400 mg PO DAILY 30 days ipexkkkpuqhh-zof-csso-FA-vit K 45 mg iron- 800 mcg-120 mcg (Bariatric Multivitamins) 1 cap PO .once a day 90 days semaglutide (weight loss) (Wegovy) 1.7 mg (0.75 mL) subcut QWEEK sucralfate 10 mL PO BID sumatriptan succinate take 1 tab at onset of headache; if no relief may repeat 1 tab after at least 2 hrs; max = 4 tabs/24 hr PO thiamine HCl (vitamin B1) 100 mg PO DAILY vitamin A palmitate 10,000 units PO DAILY [wrist splint As directed] HPI Comments Details: This?is a?43?yo female who is s/p LSG 08/11/2016. Weight loss of 18.8lbs since last OV in November 2023.? Takes lansoprazole. Abdominal pain- persists. Takes ibuprofen occasionally. After previous visit I discussed pt with Dr Pierre. He felt pt was eating too fast and that was causing her symptoms. We reviewed appropriate portion sizes. Pt was on Wegovy and tolerated well, but insurance requires weight management to prescribe further. Present meal plan includes: 7am 4 forks protein, 4 forks fruit/veg, with coffee 12pm Fairlife or Premier shake 5pm dinner- 4 forks protein, 4 forks salad/veg PFSH Medical History (Updated 02/13/24 @ 17:06 by Denise Lew MD) Migraine with aura Right median nerve neuropathy Ulnar neuropathy Neck pain Anxiety Thoracic spine pain Renal calculi Encounter for physical examination Epigastric pain Breast pain, right Hx of migraines History of tonsillitis Hx of dislocation of ankle Hx of endometritis Surgical History H/O knee surgery History of sleeve gastrectomy Status post hysteroscopic ablation of endometrium Family History Father No problems noted. Mother Diabetes mellitus Cervical cancer Daughter No problems noted. Daughter No problems noted. Brother Colon cancer Brother No problems noted. Sister No problems noted. Sister No problems noted. Sister No problems noted. Social History Household Members: Spouse, Family and Children Housing: House Alcohol intake: never Patient Tobacco Use Status: Never used Tobacco e-Cigarette/Vaping Use: Never Used Second Hand Smoke Exposure: No service: No Current occupational status: unemployed Cognitive needs: No Hearing needs: No Vision needs: No Physical Exam Vital Signs: Last Vital Signs Temp 98.1 F 06/18/24 11:11 Quality Reporting (2019) Adult ([facility] 13806/29/68) Smoking risk assessment performed?: Yes Patient Tobacco Use Status: Never used Tobacco Assessment & Plan Assessment & Plan (1) Obesity (BMI 30.0-34.9): Code(s): E66.9 - Obesity, unspecified Category: Medical (2) History of sleeve gastrectomy: Comment: August 2016 Code(s): Z90.3 - Acquired absence of stomach [part of] Category: Medical Plan With further questioning it appears pt tolerates most proteins well- shakes, eggs, yogurt. She has pain with carbohydrates like rice and bread. We discussed the importance of avoiding any foods that worsen pain and to adhere to meal plan, eat and drink slowly. Ideally two shakes and a meal of soft protein (4 forks) with veg would not cause frequent pain. Will initiate a trial of carafate as well due to previous UGI results and pt's NSAID use. Will prescribe next dose of Wegovy. RTC 2-3 months to monitor pain and response to Wegovy. I spent a total of 30 minutes reviewing/updating records, examining the patient and counseling the patient on weight management as detailed above. Medications: New semaglutide (weight loss) (Wegovy) administer weeks 13 through 16 of therapy 1.7 mg (0.75 mL) subcut QWEEK 3 mL 0RF lansoprazole 30 mg PO DAILY 90 caps 3RF sucralfate 10 mL PO BID 414 mL 3RF
[2024-06-18 11:11] VITALS: BP 107/55; PULSE 76; TEMP 36.7; O2SAT 100; BMI 30.6
--- OUTSIDE RECORDS SUMMARY | 2024-06-18 12:14 | XMS_ITS | Clinical Summary ---
Author Organization [facility] it Address [address] [place] [address] Care Team Providers Care Hot Box Checker Name Role Phone Unavailable Primary Care Provider Unavailabl e Social History Tobacco Use Types Packs/Day Years Used Date Smoking Tobacco: Never Assessed Comments Unknown Sex and Gender Information Value Date Recorded Sex Assigned at Not on file Legal Sex Female 1:07 PM EST Gender Identity Not on file Sexual Orientation Not on file Plan of Treatment Health Maintenance Due Date Last Done Comments Breast Cancer Screening 1980 DTaP,Tdap,and Td Vaccines (1 - Tdap) 07/29/1987 Hepatitis B Vaccines (1 of 3 - 19+ 3-dose series) 07/29/1999 Cervical Cancer Screening: P ap Smear 2001 COVID-19 Vaccine (2023-2 5 season) 2024 Influenza Vaccine (#1) 2024 HIB Vaccines Aged Out No longer eligi ble based on patient's age to complete this topic HPV Vaccines Aged Out No longer eligi ble based on patient's age to complete this topic Hepatitis A Vaccines Aged Out No long er eligible based on patient's age to complete this topic IPV Vaccines Aged Out No longer eligi ble based on patient's age to complete this topic MMR Vaccines Aged Out No longer eligi ble based on patient's age to complete this topic Meningococcal ACWY Vaccine Aged Out N o longer eligible based on patient's age to complete this topic Meningococcal B Vacine Aged Out No lo nger eligible based on patient's age to complete this topic Pneumococcal Vaccine: Pediat rics (0 to 5 Years) and At-Risk Patients (6 to 64 Years) Aged Out No longer eligible b ased on patient's age to complete this topic RSV Immunization Patients Un jordan 20 months Aged Out No longer eligible b ased on patient's age to complete this topic Varicella Vaccines Aged Out No longer eligible based on patient's age to complete this topic
== END 2024-06-18 11:46 | disposition home or self-care (01) ==
PROVIDERS: PCP Internal Medicine; Visit Provider Physician Assistant Surgical
DX: E66.811 Obesity, class 1 (principal); Z68.30 Body mass index [BMI] 30.0-30.9, adult; Z90.3 Acquired absence of stomach [part of]; Z98.84 Bariatric surgery status
CPT/HCPCS: 99214; G2211

== ENCOUNTER → 2024-06-18 10:53 | Outpatient (BNVA) | payer OTHER, SELFPAY | PROVIDERS: PCP Internal Medicine; Visit Provider Physician Assistant Surgical | DX: E66.9 Obesity, unspecified (principal); Z71.3 Dietary counseling and surveillance; Z98.84 Bariatric surgery status; Z68.30 Body mass index [BMI] 30.0-30.9, adult | CPT/HCPCS: 99212 ==

== ENCOUNTER 2024-06-28 08:53 | Outpatient (AMB) | payer OTHER, SELFPAY ==
--- NOTE | 2024-06-28 08:57 | A.OFFVIS_ITS ---
Vital Signs 06/28/24 08:58 Height 5 ft 3 in Weight 180 lb BMI 31.9 Intake Visit Reasons: Follow Up-lvm to r/s Intake Note: C-Spine X-ray done on 02/15/24 OT notes available for review. Allergies No Known Allergies [No Known Allergies*] Allergy (Verified 06/28/24 09:01) Medication List - Last Reconciled 06/28/24 by Aminta Wilkerson MD cholecalciferol (vitamin D3) 125 mcg PO DAILY cyclobenzaprine 5 mg PO BEDTIME [elbow sleeves As directed] ibuprofen 800 mg PO Q8H PRN 30 days lansoprazole 30 mg PO DAILY magnesium oxide 400 mg PO DAILY 30 days sikdqmjwdmzh-vlu-ffgy-FA-vit K 45 mg iron- 800 mcg-120 mcg (Bariatric Multivitamins) 1 cap PO .once a day 90 days sucralfate 10 mL PO BID sumatriptan succinate take 1 tab at onset of headache; if no relief may repeat 1 tab after at least 2 hrs; max = 4 tabs/24 hr PO thiamine HCl (vitamin B1) 100 mg PO DAILY tirzepatide (weight loss) (Zepbound) 2.5 mg (0.5 mL) subcut QWEEK vitamin A palmitate 10,000 units PO DAILY [wrist splint As directed] HPI Comments Details: 43 y/o right handed female comes for follow up of carpal tunnel, ulnar neuropathy and migraine. she reports headaches 0-3/week.she has more headaches around her periods . Other weeks she is stable. It starts with pressure above her eyes and then has neck, whole head pressure unilateral , with photophobia, phonophobia nausea, blurry vision, with visual aura.It can last the whole day. Sumatriptan 50mg helps her . when headaches are severe she feels her whole face is numb and nausea. PT neck helps but her neck is stiff she stopped amitriptyline the past few days due to palpitations. EMG result was c/w mild ulnar neuropathy bilaterally and mild median neuropathy on the right. She feels numbness and tingling on her bilateral arms ,and occasional heaviness on her left arm.she feels her symptoms are better with therapy. [facility] Medical History Migraine with aura Right median nerve neuropathy Ulnar neuropathy Neck pain Anxiety Thoracic spine pain Renal calculi Encounter for physical examination Epigastric pain Breast pain, right Hx of migraines History of tonsillitis Hx of dislocation of ankle Hx of endometritis Surgical History H/O knee surgery History of sleeve gastrectomy Status post hysteroscopic ablation of endometrium Family History Father No problems noted. Mother Diabetes mellitus Cervical cancer Daughter No problems noted. Daughter No problems noted. Brother Colon cancer Brother No problems noted. Sister No problems noted. Sister No problems noted. Sister No problems noted. Social History Household Members: Spouse, Family and Children Housing: House Alcohol intake: never Patient Tobacco Use Status: Never used Tobacco e-Cigarette/Vaping Use: Never Used Second Hand Smoke Exposure: No service: No Current occupational status: unemployed Cognitive needs: No Hearing needs: No Vision needs: No Physical Exam Vital Signs: BMI result Body Mass Index 31.9 Const General: cooperative, healthy appearing and comfortable Nutritional Appearance: obese Orientation/consciousness: patient oriented x3 Limitations: no limitations HEENT Other: mild neck tightness Eyes Pupils: Equal, round and reactive pupils present Neuro General: patient oriented x3, tone normal, moves all extremities and no focal motor deficits Cranial nerves: Yes Facial sensation intact/muscles of mastication intact, Yes Equal, round and reactive pupils present, Yes Bilaterally intact EOM present, Yes Nystagmus not present, Yes Normal facial strength present and Yes Midline tongue present Cognition (Neuro): normal cognition Gait exam (Neuro): Normal gait present Motor exam (neuro): 5/5 motor strength present throughout and Normal motor muscle tone present throughout Coordination: dguhbk-zq-alrz test normal Psych Appearance: grossly normal Quality Reporting (2019) Adult ([facility] 138//) Smoking risk assessment performed?: Yes Patient Tobacco Use Status: Never used Tobacco Assessment & Plan Assessment & Plan (1) Migraine with aura: Code(s): G43.109 - Migraine with aura, not intractable, without status migrainosus Category: Medical Qualifiers: Status migrainosus presence: without status migrainosus Intractability: not intractable Qualified Code(s): G43.109 - Migraine with aura, not intractable, without status migrainosus (2) Ulnar neuropathy: Comment: bilateral at the elbow Code(s): G56.20 - Lesion of ulnar nerve, unspecified upper limb Category: Medical (3) Neck pain: Code(s): M54.2 - Cervicalgia Category: Medical Plan sumatriptan 50mg as needed for migraine continue magnesium 400mg qhd PT for neck pain Trial cyclobenzaprine 5 mg qhs for neck pain Medications: New cyclobenzaprine 5 mg PO BEDTIME 30 tabs 1RF Coding Level of Care Code Est Pt Level 4 (00029) Diagnoses Migraine with aura and without status migrainosus, not intractable G43.109 Status migrainosus presence: without status migrainosus Intractability: not intractable Ulnar neuropathy G56.20 Neck pain M54.2
[2024-06-28 08:58] VITALS: BMI 31.9
--- OUTSIDE RECORDS SUMMARY | 2024-06-28 09:15 | XMS_ITS | Clinical Summary ---
Author Organization [facility] Address [address] [place] [address] [address] [place] [address] Care Team Providers Care Vascular Ultrasound Technician Name Role Phone Unavailable Primary Care Provider Unavailabl e Allergies No known active allergies Medications cholecalciferol (Vitamin D-3) 50 MCG (1999) capsule Take by mouth in the morning. 12/09/2022 Active magnesium oxide (Mag-Ox) 400 MG tablet Take 1 tablet by mouth in the morning. 01/16/2023 Active Immunizations Name Administration Dates Next Due HepB-CpG 07/27/2023 Influenza Injectable Quadriv alant Preservative Free IIV4 MDCK 07/27/2023 Social History Tobacco Use Types Packs/Day Years Used Date Smoking Tobacco: Never Smokeless Tobacco: Never Tobacco Cessation:Counseling Given: Not Answered Comments Unknown Sex and Gender Information Value Date Recorded Sex Assigned at Female 03/07/2022 10:18 AM EDT Legal Sex Female 10:18 AM EDT Gender Identity Female 06/01/2022 3:59 PM EST Sexual Orientation Choose not to disclose 2022 3:59 PM EST Last Filed Vital Signs Vital Sign Reading Time Taken Comments Blood Pressure 118/80 02/14/2023 9:06 AM EDT Pulse - - Temperature - - Respiratory Rate - - Oxygen Saturation - - Inhaled Oxygen Concentration - - Weight - - Height - - Body Mass Index - - Plan of Treatment Health Maintenance Due Date Last Done Comments Depression Screening 1980 HIV Screening 1980 SDOH Screening 1980 Alcohol/Substance Use Screening 1992 Family Planning (PISQ) 07/29/1995 Hepatitis C Screening 1998 Pap Smear 2001 Cervical Cancer Screening 2010 HPV/Cotest 2010 Mammogram 2020 Dental Oral Exam 07/22/2023 01/20/2023 Dental Prophylaxis 08/17/2023 02/14/2023 Hepatitis B Vaccines (2 of 2 - CpG 2-dose series) 08/24/2023 07/27/2023 COVID-19 Vaccine (1 - season) 2024 Influenza Vaccine (#1) 2024 , 02/21/2022, 05/10/2021, Additional history exists Dental X-Ray: Bitewings 01/22/2024 01/20/2023 Tobacco Screening 02/15/2024 02/14/2023 DTaP/Tdap/Td Vaccines (2 - Td or Tdap) 01/28/2025 01/28/2015, 09/20/2007 Dental X-Ray: Full Mouth 01/21/2026 01/20/2023 Zoster Vaccines (1 of 2) 2030 RSV Patients and Patients Aged 60 years or older (1 - 1-dose 75+ series) 07/29/2055 HIB Vaccines Aged Out No longer eligi [...] patient's age to complete this topic Meningococcal Vaccine Aged Out No harish purnima eligible based on patient's age to complete this topic Pneumococcal Vaccine: Pediatrics (0 to 5 Years) and At-Risk Patients (6 to 49) Years) Aged Out No longer eligible based on patient's age to complete this topic RSV under 20 months Aged Out No longe r eligible based on patient's age to complete this topic Rotavirus Vaccines Aged Out No longer eligible based on patient's age to complete this topic Procedures Procedure Name Priority Date/Time Associated Diagnosis Comments PROPHYLAXIS - ADULT Routine 02/14/2023 1 0:00 AM EDT INTRAORAL - COMPLETE SERIES OF RADIOGRAPHIC IMAGES Routine 01/20/2023 1:30 PM EDT Dental caries Encounter for dental examination Teeth missing COMPREHENSIVE ORAL EVALUATION - NEW OR ESTABLISHED PATIENT Routine 01/20/2023 1:30 PM EDT Dental caries Encounter for dental examination Teeth missing from Last 3 Months or Most Recently Relevant to Health Maintenance Insurance [facility] STANDARD D[facility] MED[facility] STAND ADULT [address] [facility] [place]
--- OUTSIDE RECORDS SUMMARY | 2024-06-28 09:15 | XMS_ITS | Encounter Summary ---
Author Organization [facility] Address [address] [place] [address] Care Team Providers Care Weather Forecaster Name Role Phone Unavailable Primary Care Provider Unavailabl e Reason for Visit * Reason Onset Date Comments New patient appt 12/22/2023 Encounter Details Date Type Department Care Team ([facility] st Contact Info) Description 12/22/2023 Telephone [facility] MEDICINE [address] [place] [address] Jd Sainz MD [address] [place] [address] New patient appt Social History Tobacco Use Types Packs/Day Years Used Date Smoking Tobacco: Never Smokeless Tobacco: Never Comments Unknown Sex and Gender Information Value Date Recorded Sex Assigned at Female 03/07/2022 10:18 AM EDT Legal Sex Female 10:18 AM EDT Gender Identity Female 06/01/2022 3:59 PM EST Sexual Orientation Choose not to disclose 2022 3:59 PM EST documented as of this encounter Miscellaneous Notes * Telephone Encounter - Delores Tolbert - 06/04/2024 10:30 AM EST Outgoing call to pt to book WAREHOUSE ASSEMBLY WORKER appt. No answer. ( Need updated Ins info. As we do not take [employer] through ) * Telephone Encounter - Delores Tolbert - 12/22/2023 12:53 PM EDT Patient added to [facility] New Patient wait list as of 12/22/23. * Telephone Encounter - April Brasher - 12/22/2023 11:11 AM EDT PT walked in requesting a WAREHOUSE ASSEMBLY WORKER appt. PT has the following medical conditions Suffers from migraine has been to ED for this reason and needs to FU with PCP\ PT would like a british virgin islander speaking documented in this encounter Plan of Treatment Not on file documented as of this encounter Visit Diagnoses Not on filedocumented in this encounter
--- OUTSIDE RECORDS SUMMARY | 2024-06-28 09:15 | XMS_ITS | Clinical Summary ---
Author Organization [facility] it Address [address] [place] [address] Care Team Providers Care Heat Seal Operator Name Role Phone Unavailable Primary Care Provider [...] 1980 DTaP,Tdap,and Td Vaccines (1 - Tdap) 07/29/1999 Hepatitis B Vaccines (1 of 3 - [...]
== END 2024-06-28 10:05 | disposition home or self-care (01) ==
PROVIDERS: PCP Internal Medicine; Visit Provider Psychiatry & Neurology Neurology
DX: G43.109 Migraine with aura, not intractable, without status migrainosus (principal); G56.20 Lesion of ulnar nerve, unspecified upper limb; M54.2 Cervicalgia
CPT/HCPCS: 99214

== ENCOUNTER → 2024-06-28 08:53 | Outpatient (BNVA) | payer OTHER, SELFPAY | PROVIDERS: PCP Internal Medicine; Visit Provider Psychiatry & Neurology Neurology | DX: G43.109 Migraine with aura, not intractable, without status migrainosus (principal); G56.20 Lesion of ulnar nerve, unspecified upper limb; M54.2 Cervicalgia | CPT/HCPCS: 99212 ==

== ENCOUNTER 2024-07-05 13:35 | Outpatient (RCR) | payer OTHER, SELFPAY ==
--- NOTE | 2024-05-22 14:13 | MHC.OT.EP ---
[address] [phone] Occupational Therapy Plan of Care Patient Name: Sebastian Moreno Date of Evaluation: 05/22/24 Diagnosis: UE NEUROPATHY Pain Location: B/L ELBOWS 5-6/10 AT REST, 9-10/10 WITH USE B/L WRISTS 1-2/10 AT REST STIFF, PRESSURE; VARIES GREATLY Pain Score: 1-10/10 Pain Scale Used: Numeric (0 - 10) Aggravating Factors: LIFTING, CARRYING, PULLING Alleviating Factors: TENS UNIT Assessment: MS MORENO REPORTS A GREATER THAN TWO YEAR HISTORY OF B/L UE PAIN AND NEUROPATHY. SHE STATES THAT PAIN COMES AND GOES, BUT IS GREATEST IN THE AM UPON WAKING. SHE IS THE PRIMARY CAREGIVER FOR HER MOTHER AND SPOUSE, RESPONSIBILITIES INCLUDE: BATHING, DRESSING, AND TRANSFERRING. DIFFICULTIES ARE REPORTED WITH LIFTING AND CARRYING ITEMS >10 POUNDS. EMG STUDY REVEALED (+) R MILD MEDIAN NEUROPATHY AND (+) B/L ULNAR NEUROPATHY. ADDITIONALLY, IT APPEARS THOUGH SHE HAS LATERAL EPICONDYLITIS ON THE RIGHT. ONGOING SKILLED OT IS WARRANTED TO ADDRESS JT PROTECTION, STRENGTH, PAIN AND SAFETY WITH IADLs. A 48% LIMITATION IS REPORTED PER THE QUICK DASH ASSESSMENT. Frequency and Duration: The patient will be seen 2X/WEEK FOR 4 WEEKS Short Term Goals: IND HEP IND JT PROTECTION AND ACTIVITY MODIFICATIONS IND COMPLIANCE WITH ALT SLEEPING POSITIONS AND ORTHOSIS USE Body Specialist Goals: INCREASE GROSS GRASP > R 20, L 30 REPORT <3/10 PAIN DURING IADLs, INCLUDING LIFTING >20 POUNDS DEMO PROPER BODY MECHANICS WITH ADL TASKS/ TRANSFERRING FAMILY Treatment Plan: Therapeutic Exercise Therapeutic Activity Home Exercise Program Splinting Neuro Re-ed Patient Education Desensitization/Sensory Re-ed Edema Control ADL Training Ultrasound NMES Iontophoresis Paraffin Fluidotherapy MHP Cold Packs Joint Mobilization Soft Tissue Mobilization Kinesiotaping Other (see comments) Electronically Signed By: MARISSA GRIMALDO OTR/L Please Sign and return to therapist. Thank you once again for your referral.
--- NOTE | 2024-07-05 14:10 | MHC.OT.DC ---
[address] [phone] F: [phone] Occupational Therapy Discharge Note Patient Name: Sebastian Moreno Provider: Aminta Wilkerson Diagnosis: UE NEUROPATHY Date of Evaluation: 05/22/24 Date of Discharge: 07/05/24 Treatments to Date: 6 Discharge Status: Improved Function Independent with HEP Discharge Summary: MS MORENO HAS ATTENDED OT AND DEMO GOOD UNDERSTANDING OF HER HEP. SHE HAS BEEN EDUCATED ON JOINT PROTECTION STRATEGIES, CAREGIVER SAFETY AND SLEEPING MODIFICATIONS. SHE UTILIZES FOLDED PILLOWS TO MAINTAIN ELBOW EXTENSION AT NIGHT AND IS FOLLOWING THROUGH WITH THE RECOMMENDED HEP. Pt WILL CONTINUE TO ATTEND OUTPATIENT PT FOR MORE PROXIMAL SYMPTOMS. NO FURTHER OT INDICATED. D/C SERVICES. Electronically Signed By: ARISTEO RODGERS/Joyce Reviewed/agree with student documentation: N/A Therapist: Please Sign and return to therapist, thank you for your referral.
== END 2024-07-05 14:20 | disposition home or self-care (01) ==
LOC: HO.OT 13:35
PROVIDERS: PCP Internal Medicine; Visit Provider Psychiatry & Neurology Neurology
DX: G56.11 Other lesions of median nerve, right upper limb (principal); G56.21 Lesion of ulnar nerve, right upper limb
CPT/HCPCS: 97110; 97140; 97167

== ENCOUNTER 2024-07-19 08:58 | Outpatient (RCR) | payer OTHER, SELFPAY | END 2024-08-23 10:53 | disposition home or self-care (01) | LOC: HO.PT 08:58 | PROVIDERS: PCP Internal Medicine; Visit Provider Psychiatry & Neurology Neurology | DX: M54.2 Cervicalgia (principal) | CPT/HCPCS: 97110; 97140; 97162; 97535 ==

== ENCOUNTER 2024-08-13 09:15 | Outpatient (AMB) | payer OTHER, SELFPAY ==
--- NOTE | 2024-08-13 09:38 | A.OFFPC_ITS ---
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 Required: Yes Hardening Machine Operator Helper Language: Supervisor Solder Making Name: Denise Lew MD Information Interpreted: non-clinical & clinical Accompanied by: Self / Same As Patient Allergies No Known Allergies [No Known Allergies*] Allergy (Verified 08/13/24 09:55) Medication List - Last Reconciled 08/13/24 by Denise Lew MD cholecalciferol (vitamin D3) 125 mcg PO DAILY cyclobenzaprine 5 mg PO BEDTIME [elbow sleeves As directed] ibuprofen 800 mg PO Q8H PRN 30 days lansoprazole 30 mg PO DAILY magnesium oxide 400 mg PO DAILY 30 days bbvvtrnfllgg-nat-fiol-FA-vit K 45 mg iron- 800 mcg-120 mcg (Bariatric Multivitamins) 1 cap PO .once a day 90 days sucralfate 10 mL PO BID sumatriptan succinate take 1 tab at onset of headache; if no relief may repeat 1 tab after at least 2 hrs; max = 4 tabs/24 hr PO thiamine HCl (vitamin B1) 100 mg PO DAILY vitamin A palmitate 10,000 units PO DAILY [wrist splint As directed] Zepbound (tirzepatide (weight loss)) 5 mg (0.5 mL) subcut QWEEK NS Tobacco use date assessed: 08/13/24 Dental Screening Dental Screen Date: 08/13/24 Did you have a dental visit in the last 12 months?: Yes Did you have a dental problem in the last 6 months where you did not have access to dental care?: No Was dental information given to patient?: Patient has dentist HPI HPI Comments History of Present Illness Details The patient is a 44-year-old female presenting with complaints of blurred vision and management needs for depression. Post commencement of Zepbound, initiated due to potential insurance reasons, she noted visual disturbances manifesting primarily after the second dose. Instances of blurred vision have since lessened in frequency, although they continue to present sudden vision challenges, causing transient vision impairment, particularly under exertion. Regarding her mental health, she has previously used Celexa effectively for depression, with a current PHQ-9 score of 5. Despite the absence of recent antidepressant use, she has shown interest in Bupropion for managing her depressive symptoms and potential weight loss benefits. Additionally, the patient experiences significant pain related to presumed uterine contractions, notably intensified by coughing or sneezing. Exacerbated pain has understandable implications on her daily functioning, exacerbated by difficulties in accessing gynecological care amidst provider changes. Also has painful menses. The patient also acknowledged a suspected vitamin D deficiency, correlating with her reported state of fatigue, negatively affecting daily activities and general well-being. GERD stable with medications. Migraines well control. [facility] Medical History (Updated 08/13/24 @ 10:10 by Denise Lew MD) Migraine with aura Right median nerve neuropathy Ulnar neuropathy Neck pain Anxiety Thoracic spine pain Renal calculi Encounter for physical examination Epigastric pain Breast pain, right Hx of migraines History of tonsillitis Hx of dislocation of ankle Hx of endometritis Surgical History H/O knee surgery History of sleeve gastrectomy Status post hysteroscopic ablation of endometrium Family History Father No problems noted. Mother Diabetes mellitus Cervical cancer Daughter No problems noted. Daughter No problems noted. Brother Colon cancer Brother No problems noted. Sister No problems noted. Sister No problems noted. Sister No problems noted. Social History Household Members: Spouse, Family and Children Housing: House Alcohol intake: never Patient Tobacco Use Status: Never used Tobacco e-Cigarette/Vaping Use: Never Used Second Hand Smoke Exposure: No service: No Current occupational status: unemployed Cognitive needs: No Hearing needs: No Vision needs: No Questionnaire PHQ-9 Over the last 2 weeks, how often have you been bothered by any of the following problems? 1. Little interest or pleasure in doing things: not at all 2. Feeling down, depressed, or hopeless: several days 3. Trouble falling or staying asleep, or sleeping too much: not at all 4. Feeling tired or having little energy: several days 5. Poor appetite or overeating: more than half the days 6. Feeling bad about yourself - or that you are a failure or have let yourself or your family down: several days 7. Trouble concentrating on things, such as reading the newspaper or watching television: not at all 8. Moving or speaking so slowly that other people could have noticed. Or the opposite - being so fidgety or restless that you have been moving around a lot more than usual: not at all 9. Thoughts that you would be better off or of hurting yourself in some way: not at all Total score: 5 Depression Screening Interpretation: Positive Depression Screening Follow-up: Existing condition, New Medication prescribed and Follow-up Visit Requested Depression Screening Done: Yes 63902 - PHQ-9 Billing: Yes Source: Developed by Drs. Brandon Sotelo, Daphne Retana, Lawson Martin and colleagues, with an educational omid from [employer]. Thrive Questionnaire Date Thrive assessed: 08/13/24 I am a: Patient What is your living situation today?: I have a steady place to live Within the past 12 months, did the food you bought not last and you didn't have the money to get more?: Never true Within the past 12 months, did you worry whether your food would run out before you got money to buy more?: Never true Do you have trouble paying for medicines?: No Do you have trouble getting transportation to medical appointments?: No Do you have trouble paying your heating and electricity bill?: No Do you have trouble taking care of your child, family member or friend?: No Do you have trouble with day-to-day activities such as bathing, preparing meals, shopping, managing finances, etc.?: No Are you currently unemployed and looking for a job?: No Are you interested in more education?: No Please select the resources that you would like help with: None Currently or been in a relationship where the following occur: No concerns reported THRIVE Score: 0 AUDIT C Alcohol Use Questionnaire (AUDIT-C) 1. How often do you have a drink containing alcohol?: Never Total Score: 0 Score Reviewed/Action Taken: No MARYCHUY-7 AMB Questionnaire MARYCHUY-7 Date MARYCHUY - 7 assessed: 08/13/24 Feeling nervous, anxious, or on edge: 0 = Not at all Not being able to stop or control worryin = Not at all Worrying too much about different things: 0 = Not at all Trouble relaxin = Not at all Being so restless that it is hard to sit still: 0 = Not at all Becoming easily annoyed or irritable: 0 = Not at all Feeling afraid as if something awful might happen: 0 = Not at all Total MARYCHUY-7 score (0-4 normal; 5-9 mild; 10-14 moderate; 15-21 severe): 0 Source: Developed by Drs. Brandon Sotelo, Daphne Retana, Lawson Martin and colleagues, with an educational omid from [employer]. MARYCHUY-7 Assessment Billing MARYCHUY-7 Assessment Tool: MARYCHUY-7 Assessment 57449 Review of Systems Const All systems reviewed & are unremarkable except as noted in HPI and below Card Denies chest pain at rest, Denies chest pain with activity, Denies edema, Denies irregular heart rhythm, Denies claudication, Denies dyspnea, Denies dyspnea on exertion, Denies orthopnea, Denies paroxysmal nocturnal dyspnea and Denies slow heart rate Resp Denies cough, Denies dyspnea and Denies dyspnea on exertion GI Denies abdominal pain, Denies change in bowel habits, Denies excessive flatus, Denies nausea and Denies vomiting Denies urinary incontinence, Denies urinary hesitancy and Denies urinary urgency Musc Denies atrophy, Denies deformity and Denies limited range of motion Skin/Breast Denies bleeding lesions, Denies changing lesions and Denies rash Physical exam (Primary Care) Vital Signs: Last Vital Signs BP 108/70 08/13/24 09:40 BMI result Body Mass Index 30.5 Tobacco/Smoking Status: Tobacco use Status Tobacco use date assessed 08/13/24 08/13/24 09:49 Patient Tobacco Use Status Never used Tobacco 08/13/24 09:49 e-Cigarette/Vaping Use Never Used 08/13/24 09:49 PHQ-9: PHQ-9 Score PHQ-9: Total score 5 08/13/24 09:49 Depression Screening Interpretation: Positive Depression Screening Follow-up: Existing condition, New Medication prescribed and Follow-up Visit Requested Thrive Assessment: Date of Thrive Assessment Date Thrive assessed 08/13/24 08/13/24 09:49 Currently or been in a relationship where the following occur: No concerns reported Resp Effort & Inspection: normal respiratory effort Auscultation: clear to auscultation bilaterally Cardio Jugular venous distension: no JVD Rate: regular rate Rhythm: regular rhythm Heart sounds: S1 normal heart sound present and S2 normal heart sound present Extrem General: Yes full ROM Coding Level of Care Code Est Pt Level 4 (05755) Complex EM visit Add On G2211 Diagnoses Mild recurrent major depression F33.0 Painful menstrual flow N94.6 Migraine with aura and without status migrainosus, not intractable G43.109 Status migrainosus presence: without status migrainosus Intractability: not intractable Chronic GERD K21.9 Additional Codes PHQ-9 - 69676 - PHQ-9 Billing: Yes ([id number]) MARYCHUY-7 Assessment Billing - MARYCHUY-7 Assessment Tool: MARYCHUY-7 Assessment 59537 ([id number]) Time Spent (min) 22 Assessment & Plan Assessment & Plan (1) Mild recurrent major depression: Code(s): F33.0 - Major depressive disorder, recurrent, mild Category: Medical (2) Painful menstrual flow: Code(s): N94.6 - Dysmenorrhea, unspecified Category: Medical (3) Migraine with aura: Code(s): G43.109 - Migraine with aura, not intractable, without status migrainosus Category: Medical Qualifiers: Status migrainosus presence: without status migrainosus Intractability: not intractable Qualified Code(s): G43.109 - Migraine with aura, not intr actable, without status migrainosus (4) Chronic GERD: Code(s): K21.9 - Gastro-esophageal reflux disease without esophagitis Category: Medical Plan The initiation of Bupropion for depression was agreed upon due to its dual benefits, aiming to assess therapeutic response in approximately two weeks. Persistent pain resembling uterine contractions needs gynecological evaluation to confirm diagnosis and address management, though immediate access to her specialist is limited. Vitamin D supplementation is recommended to counteract deficiency-induced fatigue. Patient was informed and verbally consented to the use of an ambient scribe for clinic note documentation during this visit. For her depression, I advised Bupropion considering its benefits which include mood improvement and possible weight management. I mentioned seeing results in two weeks and educated her about side effects. We acknowledged the ongoing uterine-like pain, suggesting a gynecological review once the patient re- establishes care with a specialist. A possible vitamin D deficiency was identified, recommending she start supplements to alleviate symptoms of fatigue. Follow-up in six months remains scheduled to reassess her overall health, including vitamin levels. Orders: Orders Lipid Panel 6 Months E78.5 - Hyperlipidemia, unspecified Complete Blood Count Auto Diff 6 Months D64.9 - Anemia, unspecified IRON PROFILE 6 Months D64.9 - Anemia, unspecified Vitamin D 25-OH Total 6 Months E55.9 - Vitamin D deficiency, unspecified Comprehensive [place]. 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 - Monitor any side effects of new medication and report any adverse effects. - Initiate vitamin D supplementation to address potential deficiency. - Schedule a gynecological review at the earliest opportunity. - Attend the follow-up in February for physical and laboratory assessments. - Maintain current lifestyle habits and monitor energy levels.
[2024-08-13 09:40] VITALS: BP 108/70; BMI 30.5
--- OUTSIDE RECORDS SUMMARY | 2024-08-13 10:11 | XMS_ITS | Clinical Summary ---
Author Organization [facility] Address [address] [place] [address] [address] [place] [address] Care Team Providers Care Pilot Instructor Name Role Phone Unavailable Primary Care Provider [...] 07/27/2023 COVID-19 Vaccine (1 - season) 2024 Dental X-Ray: Bitewings 01/22/2024 01/20/2023 Tobacco Screening 02/15/2024 02/14/2023 DTaP/Tdap/Td Vaccines (2 - Td or Tdap) 01/28/2025 01/28/2015, 09/20/2007 Dental X-Ray: Full Mouth 01/21/2026 01/20/2023 Zoster Vaccines (1 of 2) 2030 RSV Patients and Patients Aged 60 years or older (1 - 1-dose 75+ series) 07/29/2055 Influenza Vaccine Completed 02/13/2024, , 02/21/2022, Additional history exists HIB Vaccines Aged Out No longer eligi [...] Most Recently Relevant to Health Maintenance Insurance [facility]ARD DENT[facility] MEDICAID STAND ADULT
--- OUTSIDE RECORDS SUMMARY | 2024-08-13 10:11 | XMS_ITS | Clinical Summary ---
Author Organization [employer] [facility] it Address [address] [place] [address] Care Team Providers Care Tooling Engineering Tech Name Role Phone Unavailable Primary Care Provider [...] age to complete this topic Meningococcal B Vaccine Aged Out No l onger eligible based on patient's age to complete [...]
== END 2024-08-13 10:08 | disposition home or self-care (01) ==
LOC: HO.HMCH 09:15
PROVIDERS: PCP Internal Medicine; Visit Provider Internal Medicine
DX: F33.0 Major depressive disorder, recurrent, mild (principal); N94.6 Dysmenorrhea, unspecified; G43.109 Migraine with aura, not intractable, without status migrainosus; K21.9 Gastro-esophageal reflux disease without esophagitis

== ENCOUNTER → 2024-08-13 09:15 | Outpatient (BNVA) | payer OTHER, SELFPAY | PROVIDERS: PCP Internal Medicine; Visit Provider Internal Medicine | DX: F33.0 Major depressive disorder, recurrent, mild (principal); N94.6 Dysmenorrhea, unspecified; G43.109 Migraine with aura, not intractable, without status migrainosus; K21.9 Gastro-esophageal reflux disease without esophagitis; E55.9 Vitamin D deficiency, unspecified; E78.5 Hyperlipidemia, unspecified | CPT/HCPCS: 96127; 99212 ==

== ENCOUNTER 2024-10-15 14:24 | Outpatient (REF) | payer OTHER, SELFPAY ==
--- OUTSIDE RECORDS SUMMARY | 2024-10-15 17:23 | XMS_ITS | Clinical Summary ---
Author Organization [employer] [facility] it Address [address] [place] [address] Care Team Providers Care Digital Photographic Printer Name Role Phone Unavailable Primary Care Provider [...] Vaccine (2023-2 5 season) 2024 Influenza Vaccine (Season Ended) 2025 HIB Vaccines Aged Out No longer eligi [...]
== END 2024-10-15 14:25 | disposition home or self-care (01) ==
LOC: HO.MAMMO 14:24
PROVIDERS: PCP Internal Medicine; Visit Provider Internal Medicine
DX: Z12.31 Encounter for screening mammogram for malignant neoplasm of breast (principal)
CPT/HCPCS: 77063; 77067

== ENCOUNTER → 2024-10-15 14:30 | Outpatient (BNV) | payer OTHER, SELFPAY | PROVIDERS: PCP Internal Medicine; Visit Provider Internal Medicine | DX: Z12.31 Encounter for screening mammogram for malignant neoplasm of breast (principal) | CPT/HCPCS: 77063; 77067 ==

== ENCOUNTER 2024-10-22 10:56 | Outpatient (REF) | payer OTHER, SELFPAY ==
[2024-10-22 11:10] LABS: MANUAL DIFF FLAG NO
[2024-10-22 12:05] LABS: Basophils Percent Auto 0.4 % (0-2); Eosinophils Absolute Auto 0.1 X10*3/uL (0.0-0.4); Eosinophils Percent Auto 0.9 % (0-4); Hematocrit 38.6 % (37.0-47.0); Hemoglobin 12.9 g/dl (12.0-16.0); Imm Gran Abs Auto 0.03 X10*3/uL (0.00-0.03); Imm Gran Pct Auto 0.4 % (0.0-0.4); Lymphocytes Absolute Auto 2.1 X10*3/uL (1.2-4.9); Lymphocytes Percent Auto 27.5 % (20-40); Mean Corpuscular HGB Conc 33.4 g/dl (31.0-35.0); Mean Corpuscular Volume 89.8 fL (80.0-98.0); Mean Platelet Volume 10.6 fL (9.4-12.3); Monocytes Absolute Auto 0.6 X10*3/uL (0.1-1.2); Monocytes Percent Auto 8.5 % (2-11); Neutrophils Absolute Auto 4.7 x10*3/uL (2.0-8.3); Neutrophils Percent Auto 62.3 % (45-73); Platelet Count 248 X10*3/uL (160-400); Red Cell Distribution Width 13.1 % (11.0-16.0); White Blood Count 7.6 X10*3/uL (4.8-10.8)
--- OUTSIDE RECORDS SUMMARY | 2024-10-22 12:27 | XMS_ITS | Clinical Summary ---
Author Organization [employer] [facility] it Address [address] [place] [address] Care Team Providers Care Client Strategist Name Role Phone Unavailable Primary Care Provider [...]
[2024-10-22 12:44] LABS: Alanine Aminotransferase 17 U/L (0-31); Albumin Level 3.9 g/dL (3.5-5.0); Alkaline Phosphatase 91 U/L (39-117); Anion Gap 8 (12-20); Aspartate Amino Transferase 25 U/L (5-31); Bilirubin Total 0.4 mg/dL (0.0-1.0); Blood Urea Nitrogen 13 mg/dL (9-16); Calcium 8.9 mg/dL (8.4-10.2); Carbon Dioxide 29 mmol/L (22-29); Chloride 109 mmol/L (96-108); Cholesterol 182 mg/dL (<200); Estimated Glomerular Filt Rate > 60; Glucose Fasting 85 mg/dL (60-99); HDL Cholesterol 36 mg/dL (>40); Iron 76 mcg/dL (30-160); LDL Cholesterol Calculated 121 mg/dL (<100); Magnesium 1.9 mg/dL (1.6-2.6); Percent Iron Saturation 32 % (15-50); Potassium 4.1 mmol/L (3.3-5.1); Sodium 142 mmol/L (135-145); Total Iron Binding Capacity 235 mcg/dL (228-428); Total Protein 6.8 g/dL (6.5-8.0); Triglycerides 126 mg/dL (<150); Unsaturated Iron Binding 159 ug/dL
[2024-10-22 13:00] LABS: Vitamin D 25-OH Total 24.6 ng/mL (>30)
[2024-10-22 13:09] LABS: Folate 10.4 ng/mL (> or = 4.0); Vitamin B12 613 pg/mL (200-900)
== END 2024-10-22 10:57 | disposition home or self-care (01) ==
LOC: HO.LAB 10:56
PROVIDERS: PCP Internal Medicine; Visit Provider Internal Medicine
DX: G44.52 New daily persistent headache (NDPH) (principal); F33.0 Major depressive disorder, recurrent, mild; K21.9 Gastro-esophageal reflux disease without esophagitis; M25.50 Pain in unspecified joint; G43.909 Migraine, unspecified, not intractable, without status migrainosus; D64.9 Anemia, unspecified; E78.5 Hyperlipidemia, unspecified; E83.42 Hypomagnesemia; E53.8 Deficiency of other specified B group vitamins; E55.9 Vitamin D deficiency, unspecified
CPT/HCPCS: 36415; 80053; 80061; 82306; 82607; 82746; 83540; 83735; 85025; 96127; 99212

== ENCOUNTER 2024-10-22 14:46 | Outpatient (AMB) | payer OTHER, SELFPAY ==
--- NOTE | 2024-10-22 14:48 | A.OFFPC_ITS ---
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: No Accompanied by: Self / Same As Patient Allergies No Known Allergies [No Known Allergies*] Allergy (Verified 10/22/24 14:56) Medication List - Last Reconciled 10/22/24 by Denise Lew MD bupropion HCl XL 150 mg PO QAM 90 days cholecalciferol (vitamin D3) 125 mcg PO DAILY cyclobenzaprine 5 mg PO BEDTIME [elbow sleeves As directed] ibuprofen 800 mg PO Q8H PRN 30 days lansoprazole 30 mg PO DAILY magnesium oxide 400 mg PO DAILY 30 days gsommgeoobgx-key-iwkf-FA-vit K 45 mg iron- 800 mcg-120 mcg (Bariatric Multivitamins) 1 cap PO .once a day 90 days sucralfate 10 mL PO BID sumatriptan succinate take 1 tab at onset of headache; if no relief may repeat 1 tab after at least 2 hrs; max = 4 tabs/24 hr PO thiamine HCl (vitamin B1) 100 mg PO DAILY tirzepatide (weight loss) (Zepbound) 7.5 mg (0.5 mL) subcut QWEEK vitamin A palmitate 10,000 units PO DAILY [wrist splint As directed] Tobacco use date assessed: 08/13/24 Dental Screening Dental Screen Date: 08/13/24 HPI HPI Comments History of Present Illness Details The patient is a 44-year-old female presenting with joint pain and visual disturbances associated with headaches. She reports significant joint pain, particularly in the shoulders and hands, which she associates with neuropathy. The pain is exacerbated by heat and persists despite home therapy exercises. The patient also reports visual disturbances, describing episodes of cloudy vision and blurriness, particularly on the left side of the head. These episodes are brief but concerning, occurring while driving and causing significant distress. She has a history of depression, managed with bupropion, and has experienced a weight loss of 10 pounds since June, which she attributes to her medication. Additionally, she takes sumatriptan for migraines and reports that her vitamin D levels are low, though not critically so. The patient has been experiencing fatigue and difficulty sleeping, despite taking magnesium to aid sleep. She wakes up frequently and feels tired throughout the day. PFSH Medical History (Updated 10/22/24 @ 15:05 by Denise Lew MD) Migraine with aura Right median nerve neuropathy Ulnar neuropathy Neck pain Anxiety Thoracic spine pain Renal calculi Encounter for physical examination Epigastric pain Breast pain, right Hx of migraines History of tonsillitis Hx of dislocation of ankle Hx of endometritis Surgical History H/O knee surgery History of sleeve gastrectomy Status post hysteroscopic ablation of endometrium Family History Father No problems noted. Mother Diabetes mellitus Cervical cancer Daughter No problems noted. Daughter No problems noted. Brother Colon cancer Brother No problems noted. Sister No problems noted. Sister No problems noted. Sister No problems noted. Social History Household Members: Spouse, Family and Children Housing: House Alcohol intake: never Patient Tobacco Use Status: Never used Tobacco e-Cigarette/Vaping Use: Never Used Second Hand Smoke Exposure: No service: No Current occupational status: unemployed Cognitive needs: No Hearing needs: No Vision needs: No Questionnaire PHQ-9 Over the last 2 weeks, how often have you been bothered by any of the following problems? 1. Little interest or pleasure in doing things: not at all 2. Feeling down, depressed, or hopeless: not at all 3. Trouble falling or staying asleep, or sleeping too much: not at all 4. Feeling tired or having little energy: not at all 5. Poor appetite or overeating: not at all 6. Feeling bad about yourself - or that you are a failure or have let yourself or your family down: not at all 7. Trouble concentrating on things, such as reading the newspaper or watching television: not at all 8. Moving or speaking so slowly that other people could have noticed. Or the opposite - being so fidgety or restless that you have been moving around a lot more than usual: not at all 9. Thoughts that you would be better off or of hurting yourself in some way: not at all Total score: 0 Depression Screening Interpretation: Negative Depression Screening Done: Yes 88690 - PHQ-9 Billing: Yes Source: Developed by Drs. Brandon Sotelo, Daphne Retana, Lawson Martin and colleagues, with an educational omid from [employer]. Thrive Questionnaire Date Thrive assessed: 08/13/24 I am a: Patient What is your living situation today?: I have a steady place to live Within the past 12 months, did the food you bought not last and you didn't have the money to get more?: I choose not to answer this question Within the past 12 months, did you worry whether your food would run out before you got money to buy more?: I choose not to answer this question Do you have trouble paying for medicines?: I choose not to answer this question Do you have trouble getting transportation to medical appointments?: I choose not to answer this question Do you have trouble paying your heating and electricity bill?: I choose not to answer this question Do you have trouble taking care of your child, family member or friend?: I choose not to answer this question Do you have trouble with day-to-day activities such as bathing, preparing meals, shopping, managing finances, etc.?: No Are you currently unemployed and looking for a job?: I choose not to answer this question Are you interested in more education?: I choose not to answer this question Please select the resources that you would like help with: None Currently or been in a relationship where the following occur: No concerns reported THRIVE Score: 0 AUDIT C Alcohol Use Questionnaire (AUDIT-C) 1. How often do you have a drink containing alcohol?: Never Total Score: 0 Score Reviewed/Action Taken: No MARYCHUY-7 AMB Questionnaire MARYCHUY-7 Date MARYCHUY - 7 assessed: 08/13/24 Feeling nervous, anxious, or on edge: 0 = Not at all Not being able to stop or control worryin = Not at all Worrying too much about different things: 2 = More than half the days Trouble relaxin = Nearly every day Being so restless that it is hard to sit still: 0 = Not at all Becoming easily annoyed or irritable: 0 = Not at all Feeling afraid as if something awful might happen: 0 = Not at all Total MARYCHUY-7 score (0-4 normal; 5-9 mild; 10-14 moderate; 15-21 severe): 5 Source: Developed by Drs. Brandon Sotelo, Daphne Retana, Lawson Martin and colleagues, with an educational omid from [employer]. MARYCHUY-7 Assessment Billing MARYCHUY-7 Assessment Tool: MARYCHUY-7 Assessment 45374 Review of Systems Const All systems reviewed & are unremarkable except as noted in HPI and below Reports fatigue and Reports headache(s) ENT Reports headache(s) Card Denies chest pain at rest, Denies chest pain with activity, Denies edema, Denies irregular heart rhythm, Denies claudication, Denies dyspnea, Denies dyspnea on exertion, Denies orthopnea, Denies paroxysmal nocturnal dyspnea and Denies slow heart rate Resp Denies cough, Denies dyspnea and Denies dyspnea on exertion GI Denies abdominal pain, Denies change in bowel habits, Denies excessive flatus, Denies nausea and Denies vomiting Denies urinary incontinence, Denies urinary hesitancy and Denies urinary urgency Musc Denies abnormal gait, Denies atrophy, Denies deformity and Denies limited range of motion Skin/Breast Denies bleeding lesions, Denies changing lesions and Denies rash Neuro Denies abnormal gait, Reports headache(s) and Denies lack of coordination Endo Reports fatigue Physical exam (Primary Care) Vital Signs: Last Vital Signs BP 108/64 10/22/24 14:49 BMI result Body Mass Index 30.1 Tobacco/Smoking Status: Tobacco use Status Tobacco use date assessed 08/13/24 10/22/24 14:53 Patient Tobacco Use Status Never used Tobacco 10/22/24 14:53 e-Cigarette/Vaping Use Never Used 10/22/24 14:53 PHQ-9: PHQ-9 Score PHQ-9: Total score 0 10/22/24 14:53 Depression Screening Interpretation: Negative Thrive Assessment: Date of Thrive Assessment Date Thrive assessed 08/13/24 10/22/24 14:53 Currently or been in a relationship where the following occur: No concerns reported Resp Effort & Inspection: normal respiratory effort Auscultation: clear to auscultation bilaterally Cardio Jugular venous distension: no JVD Rate: regular rate Rhythm: regular rhythm Heart sounds: S1 normal heart sound present and S2 normal heart sound present GI Inspection: Yes normal to inspection Palpation (GI): Soft to palpation and nontender Auscultation: normal bowel sounds Extrem General: Yes full ROM Coding Level of Care Code Est Pt Level 4 (13880) Complex EM visit Add On G2211 Diagnoses New persistent daily headache G44.52 Mild recurrent major depression F33.0 Chronic GERD K21.9 Polyarthralgia M25.50 Migraine G43.909 Additional Codes PHQ-9 - 57071 - PHQ-9 Billing: Yes ([id number]) MARYCHUY-7 Assessment Billing - MARYCHUY-7 Assessment Tool: MARYCHUY-7 Assessment 79619 ([id number]) Time Spent (min) 21 Assessment & Plan Assessment & Plan (1) New persistent daily headache: Code(s): G44.52 - New daily persistent headache (NDPH) Category: Medical (2) Mild recurrent major depression: Code(s): F33.0 - Major depressive disorder, recurrent, mild Category: Medical (3) Chronic GERD: Code(s): K21.9 - Gastro-esophageal reflux disease without esophagitis Category: Medical (4) Polyarthralgia: Code(s): M25.50 - Pain in unspecified joint Category: Medical (5) Migraine: Code(s): G43.909 - Migraine, unspecified, not intractable, without status migrainosus Category: Medical Plan The patient will be referred to rheumatology for further evaluation of joint pain and potential neuropathy. An MRI of the head is planned to investigate the cause of visual disturbances and ensure no underlying neurological issues. The patient is advised to continue current medications, including bupropion for depression and sumatriptan for migraines, and to monitor her symptoms closely. She is encouraged to maintain her current weight management strategies, as she has successfully lost 10 pounds since June. Patient was informed and verbally consented to the use of an ambient scribe for clinic note documentation during this visit. Orders: Orders MR head/brain wo con Today G44.52 - New daily persistent headache (NDPH) Referrals Rheumatology Referral M25.50 - Pain in unspecified joint
[2024-10-22 14:49] VITALS: BP 108/64; BMI 30.1
== END 2024-10-22 15:13 | disposition home or self-care (01) ==
LOC: HO.HMCH 14:47
PROVIDERS: PCP Internal Medicine; Visit Provider Internal Medicine
DX: G44.52 New daily persistent headache (NDPH) (principal); F33.0 Major depressive disorder, recurrent, mild; K21.9 Gastro-esophageal reflux disease without esophagitis; M25.50 Pain in unspecified joint; G43.909 Migraine, unspecified, not intractable, without status migrainosus

== ENCOUNTER 2024-11-01 19:33 | Outpatient (REF) | payer OTHER, SELFPAY | END 2024-11-01 19:34 | disposition home or self-care (01) | LOC: HO.MRI 19:33 | PROVIDERS: PCP Internal Medicine; Visit Provider Internal Medicine | DX: Z13.89 Encounter for screening for other disorder (principal) ==

== ENCOUNTER 2024-11-14 09:29 | Outpatient (AMB) | payer OTHER, SELFPAY ==
[2024-11-14 09:41] VITALS: BP 102/70; PULSE 88; O2SAT 98; BMI 30.1
--- NOTE | 2024-11-14 09:41 | A.OFFVIS_ITS ---
Vital Signs 11/14/24 09:41 Height 5 ft 3 in Weight 170 lb BMI 30.1 BP 102/70 Blood Pressure Location Lt brachial Position Sitting Pulse 88 Pulse Source Pulse Oximeter Pulse Oximetry (%) 98 Oxygen Delivery Method Room Air Intake Visit Reasons: Follow Up Intake Note: Patient presents follow up for migraines Accompanied by: Mother Allergies No Known Allergies (No Known Allergies*) Allergy (Verified 11/14/24 09:43) Medication List - Last Reconciled 11/14/24 by Aminta Wilkerson MD alprazolam 1-2 tabs before the procedure orally PRN; bupropion HCl XL 150 mg PO QAM 90 days cholecalciferol (vitamin D3) 125 mcg PO DAILY cyclobenzaprine 5 mg PO BEDTIME [elbow sleeves As directed] ibuprofen 800 mg PO Q8H PRN 30 days lansoprazole 30 mg PO DAILY magnesium oxide 400 mg PO DAILY 30 days vgcoidkuysku-utd-qhue-FA-vit K 45 mg iron- 800 mcg-120 mcg (Bariatric Multivitamins) 1 cap PO .once a day 90 days sucralfate 10 mL PO BID sumatriptan succinate take 1 tab at onset of headache; if no relief may repeat 1 tab after at least 2 hrs; max = 4 tabs/24 hr PO thiamine HCl (vitamin B1) 100 mg PO DAILY tirzepatide (weight loss) (Zepbound) 7.5 mg (0.5 mL) subcut QWEEK vitamin A palmitate 10,000 units PO DAILY [wrist splint As directed] HPI Comments Details: [age]y/o right handed female comes for follow up of migraine. she still has 3-4 migraines a week and mil daily headcahes. PT for neck helped her . She is unable to tolerate cyclobenzaprine 5 mg and decreased the dose to 2.5 mg qhs she also reports 2 epsiodes of sharp pain in her parietal region with tingling The first episode , she woke up form sleep and lasted 30 seconds. The second episode was while she was driving and tucker dsome blurred vision as well- causing her to stop driving. it lasted 2-3 minutes. It starts with pressure above her eyes and then has neck, whole head pressure unilateral , with photophobia, phonophobia nausea, blurry vision, with visual aura.It can last the whole day. Sumatriptan 50mg helps her . when headaches are severe she feels her whole face is numb and nausea. PT neck helps but her neck is stiff EMG result was c/w mild ulnar neuropathy bilaterally and mild median neuropathy on the right. She feels numbness and tingling on her bilateral arms ,and occasional heaviness on her left arm.she feels her symptoms are better with therapy. Abortive medications- Sumatriptan Preventive medications- Amitriptyline - palpitations Propranalol , verapramil- not tried due to low blood pressure [facility] Medical History (Updated 11/14/24 @ 10:32 by Aminta Wilkerson MD) Chronic daily headache Migraine with aura Right median nerve neuropathy Ulnar neuropathy Neck pain Anxiety Thoracic spine pain Renal calculi Encounter for physical examination Epigastric pain Breast pain, right Hx of migraines History of tonsillitis Hx of dislocation of ankle Hx of endometritis Surgical History H/O knee surgery History of sleeve gastrectomy Status post hysteroscopic ablation of endometrium Family History Father No problems noted. Mother Diabetes mellitus Cervical cancer Daughter No problems noted. Daughter No problems noted. Brother Colon cancer Brother No problems noted. Sister No problems noted. Sister No problems noted. Sister No problems noted. Social History Household Members: Spouse, Family and Children Housing: House Alcohol intake: never Patient Tobacco Use Status: Never used Tobacco e-Cigarette/Vaping Use: Never Used Second Hand Smoke Exposure: No service: No Current occupational status: unemployed Cognitive needs: No Hearing needs: No Vision needs: No Physical Exam Vital Signs: Last Vital Signs Pulse 88 11/14/24 09:41 BP 102/70 11/14/24 09:41 Pulse Ox 98 11/14/24 09:41 Oxygen Delivery Method Room Air 11/14/24 09:41 BMI result Body Mass Index 30.1 Const General: cooperative, healthy appearing and comfortable Nutritional Appearance: obese Orientation/consciousness: patient oriented x3 Limitations: no limitations HEENT Other: mild neck tightness Eyes Pupils: Equal, round and reactive pupils present Neuro General: patient oriented x3, tone normal, moves all extremities and no focal motor deficits Cranial nerves: Yes Facial sensation intact/muscles of mastication intact, Yes Equal, round and reactive pupils present, Yes Bilaterally intact EOM present, Yes Nystagmus not present, Yes Normal facial strength present and Yes Midline tongue present Cognition (Neuro): normal cognition Gait exam (Neuro): Normal gait present Motor exam (neuro): 5/5 motor strength present throughout and Normal motor muscle tone present throughout Coordination: bipeyc-ol-zkcb test normal Psych Appearance: grossly normal Assessment & Plan Assessment & Plan (1) Migraine with aura: Comment: more than 20 migraine days a month . 2 epsiodes of brief neurlagia like pain in parietal region - likely related to neck tightness. Code(s): G43.109 - Migraine with aura, not intractable, without status migrainosus Category: Medical Qualifiers: Status migrainosus presence: without status migrainosus Intractability: not intractable Qualified Code(s): G43.109 - Migraine with aura, not intractabl e, without status migrainosus (2) Neck pain: Code(s): M54.2 - Cervicalgia Category: Medical (3) Chronic daily headache: Code(s): R51.9 - Headache, unspecified Category: Medical Plan I will trial her on Topiramate XR 25mg qd for prophylaxis sumatriptan 50mg as needed for migraine continue magnesium 400mg qhd PT for neck pain cyclobenzaprine 2.5 mg qhs for neck pain Medications: New topiramate XR 25 mg PO DAILY 30 caps 3RF Coding Level of Care Code Est Pt Level 4 (75388) Complex EM visit Add On G2211 Diagnoses Migraine with aura and without status migrainosus, not intractable G43.109 Status migrainosus presence: without status migrainosus Intractability: not intractable Neck pain M54.2 Chronic daily headache R51.9
--- OUTSIDE RECORDS SUMMARY | 2024-11-14 09:57 | XMS_ITS | Clinical Summary ---
Author Organization [facility] [employer] [facility] it Address [address] [place] [address] Care Team Providers Care Recharger Name Role Phone Unavailable Primary Care Provider [...] (2023-2 5 season) 2024 Influenza Vaccine (#1) 2025 HIB Vaccines Aged Out No longer [...] 5 Years) and At-Risk Patients (6 to 49 Years) Aged Out No longer eligible b ased on patient's age to complete this topic RSV Immunization Patients Un jordan 20 months Aged Out No longer eligible b ased on patient's age to complete this topic Varicella Vaccines Aged Out No longer eligible based on patient's age to complete this topic
== END 2024-11-14 10:25 | disposition home or self-care (01) ==
LOC: HO.HSMS 09:30
PROVIDERS: PCP Internal Medicine; Visit Provider Psychiatry & Neurology Neurology
DX: G43.109 Migraine with aura, not intractable, without status migrainosus (principal); M54.2 Cervicalgia; R51.9 Headache, unspecified
CPT/HCPCS: 99214; G2211

== ENCOUNTER → 2024-11-14 09:29 | Outpatient (BNVA) | payer OTHER, SELFPAY | PROVIDERS: PCP Internal Medicine; Visit Provider Psychiatry & Neurology Neurology | DX: G43.109 Migraine with aura, not intractable, without status migrainosus (principal); M54.2 Cervicalgia; Z79.899 Other long term (current) drug therapy; R51.9 Headache, unspecified | CPT/HCPCS: 99212 ==

== ENCOUNTER 2024-12-05 12:09 | Outpatient (AMB) | payer OTHER, SELFPAY ==
--- NOTE | 2024-12-05 12:11 | MHC.OFFVISWM ---
VS Expanded 12/05/24 12:17 BP 119/63 Blood Pressure Location Rt brachial Blood Pressure Position Sitting Pulse 69 Pulse Source Pulse Oximeter Temp 95.8 F L Temperature Source Temporal Artery Scan Pulse Oximetry 99 Oxygen Delivery Method Room Air Height 5 ft 3 in Weight 173 lb 3.2 oz BMI 30.7 Body Fat % 39.2 Body Fat Mass 68.0 Fat Free Mass 105.2 Visceral Fat Rating 8.0 Body Water % 43.4 Body Water Mass 75.2 Muscle Mass/Score 99.8 Basal Metabolic Rate/Score 1,457 Intake Visit Reasons: (OV) LSG DOS 08/11/16 Allergies No Known Allergies (No Known Allergies*) Allergy (Verified 12/05/24 12:14) Medication List - Last Reconciled 12/05/24 by CARMELA Britton alprazolam 1-2 tabs before the procedure orally PRN; bupropion HCl XL 150 mg PO QAM 90 days cholecalciferol (vitamin D3) 125 mcg PO DAILY cyclobenzaprine 5 mg PO BEDTIME [elbow sleeves As directed] ibuprofen 800 mg PO Q8H PRN 30 days lansoprazole 30 mg PO DAILY magnesium oxide 400 mg PO DAILY 30 days yodxzmmcpfpu-him-nndg-FA-vit K 45 mg iron- 800 mcg-120 mcg (Bariatric Multivitamins) 1 cap PO .once a day 90 days sucralfate 10 mL PO BID sumatriptan succinate take 1 tab at onset of headache; if no relief may repeat 1 tab after at least 2 hrs; max = 4 tabs/24 hr PO thiamine HCl (vitamin B1) 100 mg PO DAILY vitamin A palmitate 10,000 units PO DAILY [wrist splint As directed] HPI Comments Details: This?is a?43?yo female who is s/p LSG 08/11/2016. Weight stable since last OV in Jun.? Takes lansoprazole. At previous visit spoke about better eating practices to prevent abdominal pain. Pt was denied Zepbound by insurance. Reports she was down to about 165lbs while on GLP1. Present meal plan includes: 7am 4 forks protein, 4 forks fruit/veg, with coffee 12pm Fairlife or Premier shake 5pm dinner- 4 forks protein, 4 forks salad/veg Pt reports she does struggle with hunger occasionally. After stopping GLP1 she has felt her cravings increase. PFSH Medical History (Updated 11/14/24 @ 10:32 by Aminta Wilkerson MD) Chronic daily headache Migraine with aura Right median nerve neuropathy Ulnar neuropathy Neck pain Anxiety Thoracic spine pain Renal calculi Encounter for physical examination Epigastric pain Breast pain, right Hx of migraines History of tonsillitis Hx of dislocation of ankle Hx of endometritis Surgical History H/O knee surgery History of sleeve gastrectomy Status post hysteroscopic ablation of endometrium Family History Father No problems noted. Mother Diabetes mellitus Cervical cancer Daughter No problems noted. Daughter No problems noted. Brother Colon cancer Brother No problems noted. Sister No problems noted. Sister No problems noted. Sister No problems noted. Social History Household Members: Spouse, Family and Children Housing: House Alcohol intake: never Patient Tobacco Use Status: Never used Tobacco e-Cigarette/Vaping Use: Never Used Second Hand Smoke Exposure: No service: No Current occupational status: unemployed Cognitive needs: No Hearing needs: No Vision needs: No Physical Exam Vital Signs: Last Vital Signs Temp 95.8 F L 12/05/24 12:17 Pulse 69 12/05/24 12:17 BP 119/63 12/05/24 12:17 Pulse Ox 99 12/05/24 12:17 Oxygen Delivery Method Room Air 12/05/24 12:17 BMI result Body Mass Index 30.7 Quality Reporting (2019) Adult ([facility] 138/06/29/68) Smoking risk assessment performed?: Yes Patient Tobacco Use Status: Never used Tobacco Assessment & Plan Assessment & Plan (1) History of sleeve gastrectomy: Comment: August 2016 Code(s): Z90.3 - Acquired absence of stomach [part of] Category: Surgical (2) Obesity (BMI 30.0-34.9): Code(s): E66.9 - Obesity, unspecified Category: Medical Plan Pt would like to try phentermine for appetite suppression. She understands the need to monitor BP daily and send me measurements. RTC 3mo at which time can assess efficacy of phentermine with weight loss efforts and consider GLP1. Medications: New phentermine must administer 2 hours after breakfast 30 mg PO DAILY 30 caps 0RF
[2024-12-05 12:17] VITALS: BP 119/63; PULSE 69; TEMP 35.4; O2SAT 99; BMI 30.7
--- OUTSIDE RECORDS SUMMARY | 2024-12-05 12:35 | XMS_ITS | Clinical Summary ---
[facility] Organization [facility] Address [address] [place] [address] Care Team Providers Care Hospice Office Coordinator Name Role Phone Unavailable Primary Care Provider [...] 2001 COVID-19 Vaccine (2023-2 5 season) 2024 Depression Screening 05/08/2024 Influenza Vaccine (#1) 2025 HIB Vaccines Aged [...]
--- OUTSIDE RECORDS SUMMARY | 2024-12-05 12:35 | XMS_ITS | Clinical Summary ---
Author Organization [facility] Address [address] [place] [address] Care Team Providers Care Director Of Casino Name Role Phone Unavailable Primary Care Provider Unavailabl e Allergies No known active allergies Medications cholecalciferol (Vitamin D-3) 50 MCG (1999) capsule Take by mouth in the morning. 12/09/2022 Active magnesium oxide (Mag-Ox) 400 MG tablet Take 1 tablet by mouth in the morning. 01/16/2023 Active Encounters Date Type Department Care Team Description 10/31/2024 Telephone [facility] [address] [place] [address] Branden Shaikh MD New Patient appt. 10/31/2024 Telephone [facility] [address] [place] [address] Branden Shaikh MD 09/19/2024 Population Health Risk Score [facility] ([facility]) Department [address] [place] [phone] Provider, Population Health Generic 09/19/2024 Telephone [facility] [address] [place] [address] Branden Shaikh MD 09/17/2024 Telephone [facility] [address] [place] [address] Branden Shaikh MD 09/10/2024 Telephone [facility] [address] [place] [address] Lenka Noonan ANP from Last 3 Months Immunizations Immunization Administration Dates Next Due HepB-CpG 07/27/2023 Influenza [...] 1980 HIV Screening 1980 SDOH Screening 1980 Disability Screening 1980 Alcohol/Substance Use Screening 1992 Family Planning (PISQ) 07/29/1995 HPV Vaccines (1 - 3-dose series) 07/29/1995 Hepatitis C Screening 1998 Pap Smear 2001 Cervical Cancer Screening 2010 HPV/Cotest 2010 Mammogram 2020 Dental Oral Exam 07/22/2023 01/20/2023 Dental Prophylaxis 08/17/2023 02/14/2023 Hepatitis B Vaccines (2 of 2 - CpG 2-dose series) 08/24/2023 07/27/2023 COVID-19 Vaccine ( season) 2024 Dental X-Ray: Bitewings 01/22/2024 01/20/2023 Tobacco Screening 02/15/2024 02/14/2023 Influenza Vaccine (#1) 2025 , 07/27/2023, 02/21/2022, Additional history exists DTaP/Tdap/Td Vaccines (2 - Td or Tdap) [...] Years) and At-Risk Patients (6 to 49) Years Aged Out No longer eligible based on [...] Most Recently Relevant to Health Maintenance Insurance [facility] STAND ADULT
== END 2024-12-05 12:44 | disposition home or self-care (01) ==
LOC: HO.HBS 12:10
PROVIDERS: PCP Internal Medicine; Visit Provider Physician Assistant Surgical
DX: E66.9 Obesity, unspecified (principal); Z68.30 Body mass index [BMI] 30.0-30.9, adult; Z90.3 Acquired absence of stomach [part of]; Z98.84 Bariatric surgery status
CPT/HCPCS: 99213

== ENCOUNTER → 2024-12-05 12:09 | Outpatient (BNVA) | payer OTHER, SELFPAY | PROVIDERS: PCP Internal Medicine; Visit Provider Physician Assistant Surgical | DX: E66.9 Obesity, unspecified (principal); Z68.30 Body mass index [BMI] 30.0-30.9, adult; Z90.3 Acquired absence of stomach [part of] | CPT/HCPCS: 99212 ==

== ENCOUNTER 2025-02-20 08:56 | Outpatient (AMB) | payer OTHER, SELFPAY ==
[2025-02-20 09:30] VITALS: BP 126/64; PULSE 60; TEMP 36.2; O2SAT 98; BMI 31.0
--- NOTE | 2025-02-20 09:30 | A.OFFPC_ITS ---
Vital Signs 02/20/25 09:30 Height 5 ft 3 in Weight 175 lb 2 oz BMI 31.0 BP 126/64 Blood Pressure Location Lt brachial Position Sitting Pulse 60 Pulse Source Pulse Oximeter Temp 97.1 F Temp Source Temporal Artery Scan Pulse Oximetry (%) 98 Oxygen Delivery Method Room Air Intake Visit Reasons: Annual Exam Intake Note: Patient is here today for a physical. 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 Quality Management Coordinator: Not Required per policy Accompanied by: Self / Same As Patient Allergies No Known Allergies (No Known Allergies*) Allergy (Verified 02/20/25 09:54) Medication List - Last Reconciled 02/20/25 by Denise Lew MD cholecalciferol (vitamin D3) 125 mcg PO DAILY [elbow sleeves As directed] ibuprofen 800 mg PO Q8H PRN 30 days lansoprazole 30 mg PO DAILY magnesium oxide 400 mg PO DAILY 30 days vwpdnuvzgixo-zzv-bpdb-FA-vit K 45 mg iron- 800 mcg-120 mcg (Bariatric Multivitamins) 1 cap PO .once a day 90 days sumatriptan succinate take 1 tab at onset of headache; if no relief may repeat 1 tab after at least 2 hrs; max = 4 tabs/24 hr PO thiamine HCl (vitamin B1) 100 mg PO DAILY vitamin A palmitate 10,000 units PO DAILY [wrist splint As directed] Tobacco use date assessed: 02/20/25 Dental Screening Dental Screen Date: 08/13/24 HPI HPI Comments History of Present Illness Details The patient is a 44-year-old female presenting for a wellness visit and preventative care, including vaccinations. Complains of right ear itchiness. The patient has a history of cervical cancer, which was discussed in relation to her mother's medical history. She has undergone knee surgery, sleeve gastrectomy in 2017, and hysteroscopic ablation of the endometrium. Her family history includes diabetes on her mother's side, while her father had no known health issues. The patient does not smoke or consume alcohol. Recent laboratory tests in October showed normal renal function, blood glucose at 85 mg/dL, and normal levels of magnesium, calcium, iron, liver enzymes, and ch olesterol. Vitamin B12 levels were normal, but vitamin D was slightly low. [facility] Medical History (Updated 02/20/25 @ 11:05 by Denise Lew MD) Chronic daily headache Migraine with aura Right median nerve neuropathy Ulnar neuropathy Neck pain Anxiety Thoracic spine pain Renal calculi Encounter for physical examination Epigastric pain Breast pain, right Hx of migraines History of tonsillitis Hx of dislocation of ankle Hx of endometritis Surgical History H/O knee surgery History of sleeve gastrectomy Status post hysteroscopic ablation of endometrium Family History Father No problems noted. Mother Diabetes mellitus Cervical cancer Daughter No problems noted. Daughter No problems noted. Brother Colon cancer Brother No problems noted. Sister No problems noted. Sister No problems noted. Sister No problems noted. Social History Household Members: Spouse, Family and Children Housing: House Alcohol intake: never Patient Tobacco Use Status: Never used Tobacco e-Cigarette/Vaping Use: Never Used Second Hand Smoke Exposure: No service: No Current occupational status: unemployed Cognitive needs: No Hearing needs: No Vision needs: No Questionnaire Thrive Questionnaire Date Thrive assessed: 10/22/24 I am a: Patient What is your living situation today?: I have a steady place to live Within the past 12 months, did the food you bought not last and you didn't have the money to get more?: I choose not to answer this question Within the past 12 months, did you worry whether your food would run out before you got money to buy more?: I choose not to answer this question Do you have trouble paying for medicines?: I choose not to answer this question Do you have trouble getting transportation to medical appointments?: I choose not to answer this question Do you have trouble paying your heating and electricity bill?: I choose not to answer this question Do you have trouble taking care of your child, family member or friend?: I choose not to answer this question Do you have trouble with day-to-day activities such as bathing, preparing meals, shopping, managing finances, etc.?: No Are you currently unemployed and looking for a job?: I choose not to answer this question Are you interested in more education?: I choose not to answer this question Please select the resources that you would like help with: None Currently or been in a relationship where the following occur: No concerns r eported THRIVE Score: 0 AUDIT C Alcohol Use Questionnaire (AUDIT-C) 1. How often do you have a drink containing alcohol?: Never 3. How often do you have six or more drinks on one occasion?: Never Total Score: 0 Score Reviewed/Action Taken: No MARYCHUY-7 AMB Questionnaire MARYCHUY-7 Date MARYCHUY - 7 assessed: 08/13/24 Source: Developed by Drs. Brandon Sotelo, Daphne Retana, Lawson Martin and colleagues, with an educational omid from [employer] for iPhone and Android. Review of Systems Const All systems reviewed & are unremarkable except as noted in HPI and below Card Denies chest pain at rest, Denies chest pain with activity, Denies edema, Denies irregular heart rhythm, Denies claudication, Denies dyspnea, Denies dyspnea on exertion, Denies orthopnea, Denies paroxysmal nocturnal dyspnea and Denies slow heart rate Resp Denies cough, Denies dyspnea and Denies dyspnea on exertion Physical exam (Primary Care) Vital Signs: Last Vital Signs Temp 97.1 F 02/20/25 09:30 Pulse 60 02/20/25 09:30 BP 126/64 02/20/25 09:30 Pulse Ox 98 02/20/25 09:30 Oxygen Delivery Method Room Air 02/20/25 09:30 BMI result Body Mass Index 31.0 BMI Assessment/Plan discussion: High BMI High, discussed plan: lifestyle, weight reduction, dietary and physical activity Tobacco/Smoking Status: Tobacco use Status Tobacco use date assessed 02/20/25 02/20/25 09:38 Patient Tobacco Use Status Never used Tobacco 02/20/25 09:38 e-Cigarette/Vaping Use Never Used 02/20/25 09:38 Thrive Assessment: Date of Thrive Assessment Date Thrive assessed 10/22/24 02/20/25 09:38 Currently or been in a relationship where the following occur: No concerns reported HENMT Head: Yes normal to inspection, Yes normocephalic and Yes atraumatic Ears: external ears normal Eyes General: appearance normal, both eyes and all related structures Eyelids: Yes eyelids normal Conjunctivae: conjunctivae normal Neck Neck: Yes normal visual inspection and Yes supple Resp Effort & Inspection: normal respiratory effort Auscultation: clear to auscultation bilaterally Cardio Jugular venous distension: no JVD Rate: regular rate Rhythm: regular rhythm Heart sounds: S1 normal heart sound present and S2 normal heart sound present GI Inspection: Yes normal to inspection Palpation (GI): Soft to palpation and nontender Auscultation: normal bowel sounds Skin General skin exam: no rashes or lesions noted Neuro General: no focal motor deficits Extrem General: Yes full ROM Psych Appearance: grossly normal Office Procedures Flu Questionnaire Does the patient have a severe egg allergy?: No Does the patient have severe life threatening allergies?: No Does the patient have a fever or illness today?: No Has the patient ever had Guillain-Moffett Syndrome?: No Has the patient ever had any past reaction to a flu shot?: No Immunizations Fluarix [id number] (PF) 45 mcg (15 mcg x 3)/0.5 mL IM syringe Performing Provider: Denise Lew MD Performing Location: [facility] Adult Primary [facility] [place] Administered by: LILLIANA Ruiz on 02/20/25 10:21 Dose Route Admin Location Dispensed Lot Number Expiration Date [facility] Plodding Operator 0.5 mL IM Left Deltoid 0.5 mL [id number] 11/04/25 [id number] [employer] VIS Given Date VIS Provided VIS Publication Date 02/20/25 Single Vaccine 24 Eligibility Eligibility Date Funding Source Not VFC Eligible 02/20/25 Private pneumoc 20-boom conj-dip cr(PF) 0.5 mL IM syringe Performing Provider: Denise Lew MD Performing Location: [facility] [place] Adult [facility] Administered by: LILLIANA Ruiz on 02/20/25 10:21 Dose Route Admin Location Dispensed Lot Number Expiration Date [facility] Plodding Operator 0.5 mL IM Left Deltoid 0.5 mL [id number] 02/04/26 [id number] [employer] Total Dispensed Waste 0.5 mL 0 % VIS Given Date VIS Provided VIS Publication Date 02/20/25 Single Vaccine 24 Eligibility Eligibility Date Funding Source Not VFC Eligible 02/20/25 Private Coding Level of Care Code Est Pt Level 3 (60376) Est Pt Prev Care 40-64y(15137) Diagnoses Physical exam Z00.00 Ear itch L29.9 Mild recurrent major depression F33.0 Time Spent (min) 31 Assessment & Plan Assessment & Plan (1) Physical exam: Code(s): Z00.00 - Encounter for general adult medical examination without abnormal findings Category: Medical (2) Ear itch: Code(s): L29.9 - Pruritus, unspecified Category: Medical (3) Mild recurrent major depression: Code(s): F33.0 - Major depressive disorder, recurrent, mild Category: Medical Plan Plan 1. Encounter for general adult medical examination without abnormal findings Z00.00 The patient has a history of cervical cancer, which is stable and requires routine follow-up as per standard guidelines. The patient is due for a tetanus vaccination, last received in 2014, and it is recommended to update this vaccination. The patient has requested an influenza vaccination, which is recommended as part of routine preventative care. 2. Ear itch Start Dermotic as needed. Orders: Orders Pneumococcal 20 Immunization Today Z23 - Encounter for immunization T Spot TB Today Z11.1 - Encounter for screening for respiratory tuberculosis Influenza 3205-0650 Immunization Today Z23 - Encounter for immunization Medications: New fluocinolone acetonide oil 0.01% (DermOtic Oil) 5 drps otic (ears) BID 20 mL 0RF 7 days L29.9 - Pruritus, unspecified Refilled magnesium oxide 400 mg PO DAILY 30 tabs 3RF 30 days sumatriptan succinate take 1 tab at onset of headache; if no relief may repeat 1 tab after at least 2 hrs; max = 4 tabs/24 hr PO 14 tabs 6RF mjnvaqgfjpbs-wqz-cixx-FA-vit K 45 mg iron- 800 mcg-120 mcg (Bariatric Multivitamins) 1 cap PO .once a day 90 caps 1RF 90 days ibuprofen 800 mg PO Q8H PRN 90 tabs 2RF pain 30 days
--- OUTSIDE RECORDS SUMMARY | 2025-02-20 09:51 | XMS_ITS | Clinical Summary ---
Author Organization [facility] it Address [address] [place] [address] Care Team Providers Care Coil Connector Name Role Phone Unavailable Primary Care Provider [...] Cervical Cancer Screening: P ap Smear 2001 HPV Vaccines (1 - 3-dose SCD M series) 07/29/2007 Depression Screening 05/08/2024 COVID-19 Vaccine (1 - 2023-2 5 season) 2025 Influenza Vaccine (#1) 2025 RSV Immunization Adult Patie nts (1 - 1-dose 75+ series) 07/29/2055 HIB [...]
--- OUTSIDE RECORDS SUMMARY | 2025-02-20 09:51 | XMS_ITS | Clinical Summary ---
Author Organization [facility] [employer] Address [address] [place] [address] [address] [place] [address] Care Team Providers Care Transition Rn Name Role Phone Unavailable Primary Care Provider Unavailabl e Allergies No known active allergies Medications cholecalciferol (Vitamin D-3) 50 MCG (1999) capsule Take by mouth in the morning. 12/09/2022 Active magnesium oxide (Mag-Ox) 400 MG tablet Take 1 tablet by mouth in the morning. 01/16/2023 Active Immunizations Immunization Administration Dates Next Due HepB-CpG [...] 2 - CpG 2-dose series) 08/24/2023 07/27/2023 Dental X-Ray: Bitewings 01/22/2024 01/20/2023 Tobacco Screening 02/15/2024 02/14/2023 COVID-19 Vaccine (1 - 2023- season) 2025 Influenza Vaccine (#1) 2025 , 07/27/2023, 02/21/2022, [...] Most Recently Relevant to Health Maintenance Insurance [facility] STANDARD DENTAL-[facility] MEDICA[facility] STAND ADULT
--- OUTSIDE RECORDS SUMMARY | 2025-02-20 09:51 | XMS_ITS | Clinical Summary ---
Author Organization [facility] Address [address] [place] [id number] Phone Care Team Providers Care Interior Block Wirer Name Role Phone Denise Dsouza MD Primary Care Provid er Allergies No known active allergies Encounters Date Type Department Care Team Description 02/04/2025 5:20 PM EDT - 02/04/2025 7:35 PM EDT Emergency [facility] [address] [place] [address] Jane Baldwin MD, PhD Discharge Disposition: Home or Self Care from Last 3 Months Social History Tobacco Use Types Packs/Day Years Used Date Smoking Tobacco: Never Assessed Education Answer Date Recorded Are you interested in more education? Not on bk e 02/04/2025 Are you concerned about learning? Not on file 02/04/2025 No 02/04/2025 No 02/04/2025 Digital Access Answer Date Recorded No 02/04/2025 No 02/04/2025 Reliable internet access at home? Not on file 02/04/2025 Device with a working camera? Not on file Intimate Partner Violence Answer Date R ecorded Are you denied basic needs s uch as food, clothing, or medical care? No 02/04/2025 In the past 12 months have y ou been in a relationship with a person who hurts, threatens, or tries to control you? No 02/04/2025 Are you denied basic needs s uch as food, clothing, or medical care? No 02/04/2025 In the past 12 months have y ou been in a relationship with a person who hurts, threatens, or tries to control you? No 02/04/2025 Comments Unknown Sex and Gender Information Value Date Recorded Sex Assigned at Female 02/04/2025 1:59 PM EDT Legal Sex Female 1:51 PM EDT Gender Identity Female 02/04/2025 1:59 PM EDT Sexual Orientation Not on file Last Filed Vital Signs Vital Sign Reading Time Taken Comments Blood Pressure 114/76 02/04/2025 7:33 PM EDT Pulse 74 02/04/2025 7:33 PM EDT Temperature 36.5 C (97.7 F) 02/04/2025 7:33 PM EDT Respiratory Rate 17 02/04/2025 7:33 PM EDT Oxygen Saturation 100% 02/04/2025 7:33 PM EDT Inhaled Oxygen Concentration - - Weight 79.4 kg (175 lb) 02/04/2025 1:59 PM EDT Height 160 cm (5' 3 ) 02/04/2025 1:59 PM EDT Body Mass Index 31 02/04/2025 1:59 PM EDT Plan of Treatment Not on file Medical Devices Not on file Procedures Procedure Name Priority Date/Time Associated Diagnosis Comments TROPONIN STAT 02/04/2025 5:51 PM EDT LFTS (HEPATIC PANEL) STAT 02/04/2025 5:51 PM EDT BASIC METABOLIC PANEL STAT 02/04/2025 5:51 PM EDT CBC AND DIFFERENTIAL STAT 02/04/2025 5:51 PM EDT ECG 12-LEAD STAT 02/04/2025 2:04 PM EDT from Last 3 Months Results * LFTs (hepatic panel) (02/04/2025 5:51 PM EDT) [facility] PHOSPHATASE 96 39 - 117 U/L [facility] TOTAL BILIRUBIN <0.2 0.0 - 1.2 mg/dL [facility] DIRECT BILIRUBIN <0.1 0.0 - 0.2 mg/dL [facility] Bilirubin (Indirect) NOT CALCULATED 0 - 1.5 mg/dL [facility] AST 21 0 - 37 U/L [facility] ALT 20 0 - 40 U/L [facility] TOTAL PROTEIN 7.2 6.5 - 8.0 g/dL [facility] ALBUMIN 3.9 3.9 - 4.8 g/dL [facility] GLOBULIN 3.3 1 - 4.8 g/dL [facility] A/G Ratio 1.18 1.00 - 4.80 RATIO [facility] Blood 02/04/2025 5:51 PM EDT 02/04/2025 5:56 PM EDT us Jane Baldwin MD, PhD LAB BLOOD ORDERABLE S Final Result [facility] [address] [place] [address] * CBC and differential (02/04/2025 5:51 PM EDT) WBC 10.84 4.00 - 11.00 K/uL [facility] RBC 4.56 4.00 - 5.20 M/uL [facility] HGB 13.6 12.0 - 16.0 g/dL [facility] HCT 41.6 36.0 - 46.0 % [facility] PLT 215 150 - 450 K/uL [facility] MCV 91.2 80.0 - 100.0 [facility] MCH 29.8 27.0 - 31.0 pg [facility] MCHC 32.7 32.0 - 36.0 g/dL [facility] RDW 12.9 11.5 - 14.5 % [facility] MPV 9.8 8.4 - 12.0 fL [facility] NRBC 0.00 0.00 /100 WBCs [facility] ABSOLUTE NRBC 0.00 0.00 K/uL [facility] DIFF METHOD Auto [facility] NEUTS 63.1 48.0 - 76.0 % [facility] LYMPHS 28.3 18.0 - 41.0 % [facility] MONOS 7.3 4.0 - 11.0 % [facility] EOS 0.6 0.0 - 5.0 % [facility] BASOS 0.4 0.0 - 1.5 % [facility] Granulocytes, immature (%) 0.3 0.0 - 0.9 % [facility] ABSOLUTE NEUTS 6.85 1.92 - 7.60 K/uL [facility] ABSOLUTE LYMPHS 3.07 0.72 - 4.10 K/uL [facility] ABSOLUTE MONOS 0.79 0.16 - 1.10 K/uL [facility] ABSOLUTE EOS 0.06 0.00 - 0.50 K/uL [facility] ABSOLUTE BASOS 0.04 0.00 - 0.15 K/uL [facility] Granulocytes, immature 0.03 0.00 - 0.09 K/uL [facility] Blood 02/04/2025 5:51 PM EDT 02/04/2025 5:56 PM EDT us Jane Baldwin MD, PhD LAB BLOOD ORDERABLE S Final Result Performing Organization Address [facility]/ZIP Co de Phone Number [address] [address] * Troponin (02/04/2025 5:51 PM EDT) Troponin-T, HS Gen5 <6 0 - 9 ng/L [facility] Blood 02/04/2025 5:51 PM EDT 02/04/2025 5:56 PM EDT us Jane Baldwin MD, PhD LAB BLOOD ORDERABLE S Final Result [address] [address] * Basic metabolic panel (02/04/2025 5:51 PM EDT) SODIUM 140 133 - 146 mmol/L [facility] CHLORIDE 105 96 - 108 mmol/L [facility] POTASSIUM 4.2 3.3 - 5.1 mmol/L [facility] CO2 25 21 - 35 mmol/L [facility] BUN 14 6 - 19 mg/dL [facility] CREATININE 0.50 0.5 - 1.5 mg/dL [facility] GLUCOSE 91 70 - 99 mg/dL [facility] CALCIUM 9.1 8.4 - 10.3 mg/dL [facility] EGFR 119 >59 mL/min/1.7 3m2 [facility] Comment:Estimated glomerular filtration rate calculated using the CKD-EPI refit equation. ANION GAP 14 10 - 20 mmol/L [facility] Blood 02/04/2025 5:51 PM EDT 02/04/2025 5:56 PM EDT us Jane Baldwin MD, PhD LAB BLOOD ORDERABLE S Final Result [facility] [address] [place] [address] * ECG 12-LEAD (02/04/2025 2:04 PM EDT) Ventricular Rate EKG/MIN 79 BPM [facility] Atrial Rate 79 BPM [facility] NV Interval 142 ms [facility] QRS Duration 76 ms [facility] QT Interval 392 ms [facility] QTC Interval 449 ms [facility] P [place] 54 degrees [facility] R Wave [place] 41 degrees [facility] T Wave [place] 41 degrees [facility] 02/04/2025 2:04 PM EDT 02/05/2025 9:06 AM EDT Narrative [facility] - 02/05/2025 9:06 AM EDT Normal sinus rhythm Possible Left atrial enlargement Borderline ECG No previous ECGs available Confirmed by Sharif Arce ([id number]) on 02/05/2025 9:06:03 AM us Rick Obrien MD ECG ORDERABLES Final Result [facility] from Last [address] [place] [address] ACO [facility]CO [facility] Care Teams Interior Block Wirer Relationship Specialty Start Date End Date Denise Dsouza MD [address] [place] [address] PCP - General Internal Medicine 02/04/25 Additional Source Comments The information contained in this document represents components of the legal health record. It is not the complete legal health record.[facility]
== END 2025-02-20 10:18 | disposition home or self-care (01) ==
LOC: HO.HMCH 08:57
PROVIDERS: PCP Internal Medicine; Visit Provider Internal Medicine
DX: Z00.00 Encounter for general adult medical examination without abnormal findings (principal); L29.9 Pruritus, unspecified; F33.0 Major depressive disorder, recurrent, mild; Z23 Encounter for immunization

== ENCOUNTER → 2025-02-20 08:56 | Outpatient (BNVA) | payer OTHER, SELFPAY | PROVIDERS: PCP Internal Medicine; Visit Provider Internal Medicine | DX: Z00.00 Encounter for general adult medical examination without abnormal findings (principal); L29.9 Pruritus, unspecified; F33.0 Major depressive disorder, recurrent, mild; Z23 Encounter for immunization | CPT/HCPCS: 90471; 90472; 90656; 90677; 99212; 99396 ==

== ENCOUNTER 2025-03-20 09:49 | Outpatient (AMB) | payer OTHER, SELFPAY ==
--- NOTE | 2025-03-20 10:40 | A.OFFVIS_ITS ---
VS Expanded 03/20/25 11:01 BP 119/55 L Blood Pressure Location Rt brachial Blood Pressure Position Sitting Pulse 67 Pulse Source Pulse Oximeter Pulse Oximetry 99 Oxygen Delivery Method Room Air Height 5 ft 3 in Weight 174 lb 6.4 oz BMI 30.9 Body Fat % 40.2 Body Fat Mass 70.2 Fat Free Mass 104.2 Visceral Fat Rating 9.0 Body Water % 42.6 Body Water Mass 74.2 Muscle Mass/Score 99.0 Basal Metabolic Rate/Score 1,450 Intake Visit Reasons: (OV) LSG DOS 08/11/16 Allergies No Known Allergies (No Known Allergies*) Allergy (Verified 03/20/25 11:02) Medication List - Last Reconciled 03/20/25 by CARMELA Britton cholecalciferol (vitamin D3) 125 mcg PO DAILY [elbow sleeves As directed] fluocinolone acetonide oil 0.01% (DermOtic Oil) 5 drps otic (ears) BID 7 days ibuprofen 800 mg PO Q8H PRN 30 days lansoprazole 30 mg PO DAILY lorazepam (Ativan) 2 mg (2 x 1 mg) PO BEDTIME PRN 1 day magnesium oxide 400 mg PO DAILY 30 days awxnullsfaae-gym-fyfu-FA-vit K 45 mg iron- 800 mcg-120 mcg (Bariatric Multivitamins) 1 cap PO .once a day 90 days sumatriptan succinate 50 mg PO Q2-4H thiamine HCl (vitamin B1) 100 mg PO DAILY vitamin A palmitate 10,000 units PO DAILY [wrist splint As directed] HPI Comments Details: This is a 43 yo female who is s/p LSG 08/11/2016. Weight stable since last OV in November. Takes lansoprazole. At previous visit spoke about better eating practices to prevent abdominal pain. Pt was denied Zepbound by insurance. Reports she was down to about 165lbs while on GLP1. Pt tried phentermine, but reports that she had to go to the hospital while taking it. She felt palpitations and tachycardia, numbness in left arm, lightheaded, and fell down- everything went black. She was told by ED provider to stop taking. She did stop and has had no additional similar episodes. Present meal plan includes: 7am 2 eggs, coffee or tea 12pm Fairlife or Premier shake, or bar, or yogurt 5pm dinner- 4 forks protein, 4 forks salad/veg hydration is adequate PFSH Medical History Chronic daily headache Migraine with aura Right median nerve neuropathy Ulnar neuropathy Neck pain Anxiety Thoracic spine pain Renal calculi Encounter for physical examination Epigastric pain Breast pain, right Hx of migraines History of tonsillitis Hx of dislocation of ankle Hx of endometritis Surgical History H/O knee surgery History of sleeve gastrectomy Status post hysteroscopic ablation of endometrium Family History Father No problems noted. Mother Diabetes mellitus Cervical cancer Daughter No problems noted. Daughter No problems noted. Brother Colon cancer Brother No problems noted. Sister No problems noted. Sister No problems noted. Sister No problems noted. Social History Household Members: Spouse, Family and Children Housing: House Alcohol intake: never Patient Tobacco Use Status: Never used Tobacco e-Cigarette/Vaping Use: Never Used Second Hand Smoke Exposure: No service: No Current occupational status: unemployed Cognitive needs: No Hearing needs: No Vision needs: No Physical Exam Vital Signs: Last Vital Signs Pulse 67 03/20/25 11:01 BP 119/55 L 03/20/25 11:01 Pulse Ox 99 03/20/25 11:01 Oxygen Delivery Method Room Air 03/20/25 11:01 BMI result Body Mass Index 30.9 Quality Reporting (2019) Adult ([facility] 138/06/29/68) Smoking risk assessment performed?: Yes Patient Tobacco Use Status: Never used Tobacco Assessment & Plan Assessment & Plan (1) History of sleeve gastrectomy: Comment: August 2016 Code(s): Z90.3 - Acquired absence of stomach [part of] Category: Surgical Plan Pt reports adverse effects from phentermine; I do not consider it safe for her to continue taking this medication. Pt is interested in starting GLP1. Reviewed contraindications, discussed dosing. Discussed need for adequate protein intake while on GLP1s as well as frequent communication with our office. Pt will check in with me weekly and is aware that subsequent Rx will be dependent on frequent communication. Gave dotHIVI brittnee info and strongly encouraged pt to follow a plan from brittnee. RTC 3-4 months, pt will text me weekly with weight updates. Medications: New tirzepatide (weight loss) (Zepbound) for 4 weeks 2.5 mg (0.5 mL) subcut QWEEK 2 mL 0RF ondansetron 4 mg PO Q8H PRN 20 tabs 0RF nausea and vomiting Refilled lansoprazole 30 mg PO DAILY 90 caps 3RF
[2025-03-20 11:01] VITALS: BP 119/55; PULSE 67; O2SAT 99; BMI 30.9
--- OUTSIDE RECORDS SUMMARY | 2025-03-20 11:36 | XMS_ITS | Clinical Summary ---
Author Organization [facility] it Address [address] [place] [address] Care Team Providers Care Behavioral Assistant Name Role Phone Unavailable Primary Care Provider [...] Depression Screening 05/08/2024 COVID-19 Vaccine (1 - 2024-2 6 season) 2025 Influenza Vaccine (#1) 2025 RSV [...]
--- OUTSIDE RECORDS SUMMARY | 2025-03-20 11:36 | XMS_ITS | Clinical Summary ---
Author Organization [facility] Address [address] [place] [phone] Phone Care Team Providers Care Manager Intelligence Name Role Phone Denise Dsouza MD Primary Care Provid er Allergies No known active allergies Encounters Date Type Department Care Team Description 02/04/2025 5:20 PM EDT - 02/04/2025 7:35 PM EDT Emergency [facility] [address] [place] [address] Jane Baldwin MD, PhD Discharge Disposition: Home [...] 02/04/2025 5:51 PM EDT BASIC METABOLIC PANEL (BMP) STAT 02/04/2025 5:51 PM EDT CBC AND DIFFERENTIAL STAT 02/04/2025 5:51 PM EDT ECG 12-LEAD STAT 02/04/2025 2:04 PM EDT from Last 3 Months Results * LFTs (hepatic panel) (02/04/2025 5:51 PM EDT) ALKALINE PHOSPHATASE 96 39 - 117 U/L [facility] TOTAL BILIRUBIN <0.2 0.0 - 1.2 mg/dL [facility] DIRECT BILIRUBIN <0.1 0.0 - 0.2 mg/dL [facility] Bilirubin (Indirect) NOT CALCULATED 0 - 1.5 mg/dL [facility] AST 21 0 - 37 U/L [facility] ALT 20 0 - 40 U/L [facility] TOTAL PROTEIN 7.2 6.5 - 8.0 g/dL [facility] ALBUMIN 3.9 3.9 - 4.8 g/dL [facility] GLOBULIN 3.3 1 - 4.8 g/dL [facility] A/G Ratio 1.18 1.00 - 4.80 RATIO [facility] Blood 02/04/2025 5:51 PM EDT 02/04/2025 5:56 PM EDT us Jane Baldwin MD, PhD LAB BLOOD BKR ORDER JASSI Final Result [facility] [address] [place] [address] * CBC and differential (02/04/2025 5:51 PM EDT) WBC 10.84 4.00 - 11.00 K/uL [facility] RBC 4.56 4.00 - 5.20 M/uL [facility] HGB 13.6 12.0 - 16.0 g/dL [facility] HCT 41.6 36.0 - 46.0 % [facility] PLT 215 150 - 450 K/uL [facility] MCV 91.2 80.0 - 100.0 fL [facility] MCH 29.8 27.0 - 31.0 pg [facility] MCHC 32.7 32.0 - 36.0 g/dL [facility] RDW 12.9 11.5 - 14.5 % [facility] MPV 9.8 8.4 - 12.0 fL [facility] NRBC 0.00 0.00 /100 WBCs [facility] ABSOLUTE NRBC 0.00 0.00 K/uL [facility] DIFF METHOD Auto [facility] NEUTS 63.1 48.0 - 76.0 % [facility] LYMPHS 28.3 18.0 - 41.0 % [facility] MONOS 7.3 4.0 - 11.0 % [facility] EOS 0.6 0.0 - 5.0 % [facility] BASOS 0.4 0.0 - 1.5 % [facility] Granulocytes, immature (%) 0.3 0.0 - 0.9 % [facility] ABSOLUTE NEUTS 6.85 1.92 - 7.60 K/uL [facility] ABSOLUTE LYMPHS 3.07 0.72 - 4.10 K/uL [facility] ABSOLUTE MONOS 0.79 0.16 - 1.10 K/uL [facility] ABSOLUTE EOS 0.06 0.00 - 0.50 K/uL [facility] ABSOLUTE BASOS 0.04 0.00 - 0.15 K/uL [facility] Granulocytes, immature 0.03 0.00 - 0.09 K/uL [facility] Blood 02/04/2025 5:51 PM EDT 02/04/2025 5:56 PM EDT us Jane Baldwin MD, PhD LAB BLOOD BKR ORDER JASSI Final Result Performing Organization Address City/[facility]/ZIP Co de Phone Number [address] [address] * Troponin (02/04/2025 5:51 PM EDT) Pathologist [facility] Troponin-T, HS Gen5 <6 0 - 9 ng/L [facility] Blood 02/04/2025 5:51 PM EDT 02/04/2025 5:56 PM EDT Jane Baldwin MD, PhD LAB BLOOD BKR ORDER JASSI Final Result [address] [address] * Basic metabolic panel (02/04/2025 5:51 PM EDT) SODIUM 140 133 - 146 mmol/L [facility] CHLORIDE 105 96 - 108 mmol/L [facility] POTASSIUM 4.2 3.3 - 5.1 mmol/L [facility] CO2 25 21 - 35 mmol/L [facility] BUN 14 6 - 19 mg/dL [facility] CREATININE 0.50 0.5 - 1.5 mg/dL [facility] GLUCOSE 91 70 - 99 mg/dL [facility] CALCIUM 9.1 8.4 - 10.3 mg/dL [facility] EGFR 119 >59 mL/min/1.7 3m2 [facility] Comment:Estimated glomerular filtration rate calculated using the CKD-EPI refit equation. ANION GAP 14 10 - 20 mmol/L [facility] Blood 02/04/2025 5:51 PM EDT 02/04/2025 5:56 PM EDT us Jane Baldwin MD, PhD LAB BLOOD BKR ORDER JASSI Final Result [facility] [address] [place] [address] * ECG 12-LEAD (02/04/2025 2:04 PM EDT) Ventricular Rate EKG/MIN 79 BPM [facility] Atrial Rate 79 BPM [facility] [place] Interval 142 ms [facility] QRS Duration 76 ms [facility] QT Interval 392 ms [facility] QTC Interval 449 ms [facility] P [place] 54 degrees [facility] R Wave [place] 41 degrees [facility] T Wave [place] 41 degrees [facility] 02/04/2025 2:04 PM EDT 02/05/2025 9:06 AM EDT Narrative [facility] - 02/05/2025 9:06 AM EDT Normal sinus rhythm Possible Left atrial enlargement Borderline ECG No previous ECGs available Confirmed by Sharif Arce ([id number]) on 02/05/2025 9:06:03 AM us Rick Obrien MD ECG ORDERABLES Final Result [facility] from Last 3 Months Insurance [facility] [place] [address] [place] [address] [place] [address] [place] [address] [place] [address] [place] [address] [place] [address] [place] [address] ACO Care Teams Manager Intelligence Relationship Specialty Start Date End Date Denise Dsouza MD [address] [place] [address] PCP - General Internal Medicine 02/04/25 Additional Source Comments The information contained in this document represents components of the legal health record. It is not the complete legal health record.[facility]
--- OUTSIDE RECORDS SUMMARY | 2025-03-20 11:36 | XMS_ITS | Clinical Summary ---
Author Organization [employer] Address [address] [place] [address] [address] [place] [address] Care Team Providers Care Sandfill Operator Surface Name Role Phone Unavailable Primary Care Provider [...] Screening 02/15/2024 02/14/2023 COVID-19 Vaccine (1 - 2024- season) 2025 DTaP/Tdap/Td Vaccines (2 - Td or Tdap) 01/28/2025 01/28/2015, 09/20/2007 Dental X-Ray: Full Mouth 01/21/2026 01/20/2023 Zoster Vaccines (1 of 2) 2030 RSV Patients and Patients Aged 60 years or older (1 - 1-dose 75+ series) 07/29/2055 Influenza Vaccine Completed 02/20/2025, , 07/27/2023, Additional history exists Pneumococcal Vaccine: Pediatrics (0 to 5 Years) and At-Risk Patients (6 to 49) Years Aged Out 02/20/2025 No longer eligible based on patient's age to complete this topic HIB Vaccines Aged Out No longer eligi [...] Most Recently Relevant to Health Maintenance Insurance [facility] STANDARD DENTAL-[facility] MEDICAID STAND ADULT
== END 2025-03-20 11:29 | disposition home or self-care (01) ==
LOC: HO.HBS 09:50
PROVIDERS: PCP Internal Medicine; Visit Provider Physician Assistant Surgical
DX: E66.9 Obesity, unspecified (principal); Z68.30 Body mass index [BMI] 30.0-30.9, adult; Z90.3 Acquired absence of stomach [part of]; Z98.84 Bariatric surgery status
CPT/HCPCS: 99214

== ENCOUNTER → 2025-03-20 09:49 | Outpatient (BNVA) | payer OTHER, SELFPAY | PROVIDERS: PCP Internal Medicine; Visit Provider Physician Assistant Surgical | DX: Z98.84 Bariatric surgery status (principal); Z90.3 Acquired absence of stomach [part of] | CPT/HCPCS: 99212 ==

== ENCOUNTER 2025-04-02 13:58 | Outpatient (REF) | payer OTHER, SELFPAY ==
[2025-04-02 14:22] LABS: MANUAL DIFF FLAG NO
[2025-04-02 14:32] LABS: Hematocrit 37.9 % (37.0-47.0); Hemoglobin 12.5 g/dl (12.0-16.0); Imm Gran Abs Auto 0.02 X10*3/uL (0.00-0.03); Imm Gran Pct Auto 0.2 % (0.0-0.4); Lymphocytes Absolute Auto 2.2 X10*3/uL (1.2-4.9); Mean Corpuscular HGB Conc 33.0 g/dl (31.0-35.0); Mean Corpuscular Hemoglobin 29.5 pg (27.0-33.0); Mean Corpuscular Volume 89.4 fL (80.0-98.0); NRBC Abs Auto 0.000 X10*3/uL (0.0-0.012); NRBC Pct Auto 0.0 /100WBC (0.0-0.2); Platelet Count 231 X10*3/uL (160-400); Red Blood Count 4.24 X10*6/uL (4.20-5.50); White Blood Count 9.2 X10*3/uL (4.8-10.8)
[2025-04-02 15:24] LABS: Alanine Aminotransferase 22 U/L (0-31); Albumin Level 3.8 g/dL (3.5-5.0); Alkaline Phosphatase 85 U/L (39-117); Anion Gap 9 (12-20); Aspartate Amino Transferase 32 U/L (5-31); Blood Urea Nitrogen 15 mg/dL (9-16); Calcium 8.8 mg/dL (8.4-10.2); Carbon Dioxide 28 mmol/L (22-29); Chloride 108 mmol/L (96-108); Cholesterol 198 mg/dL (<200); Estimated Glomerular Filt Rate > 60; HDL Cholesterol 45 mg/dL (>40); Iron 45 mcg/dL (30-160); Percent Iron Saturation 19 % (15-50); Potassium 3.8 mmol/L (3.3-5.1); Sodium 141 mmol/L (135-145); Total Iron Binding Capacity 237 mcg/dL (228-428); Total Protein 6.7 g/dL (6.5-8.0); Triglycerides 86 mg/dL (<150); Unsaturated Iron Binding 192 ug/dL
--- OUTSIDE RECORDS SUMMARY | 2025-04-02 17:02 | XMS_ITS | Clinical Summary ---
Author Organization [facility] Address [address] [place] [phone] Phone Care Team Providers Care Business Support Administrator Name Role Phone Denise Dsouza MD Primary Care Provid er Allergies No known active allergies Encounters Date Type Department Care Team Description 02/04/2025 5:20 PM EDT - 02/04/2025 7:35 PM EDT Emergency [facility] [address] [place] [address] Jane Baldwin MD, PhD Discharge Disposition: Home [...] ALKALINE PHOSPHATASE 96 39 - 117 U/L [facility] TOTAL BILIRUBIN <0.2 0.0 - 1.2 mg/dL [facility] DIRECT BILIRUBIN <0.1 0.0 - 0.2 mg/dL [facility] Bilirubin (Indirect) NOT CALCULATED 0 - 1.5 mg/dL [facility] AST 21 0 - 37 U/L [facility] ALT 20 0 - 40 U/L [facility] TOTAL PROTEIN 7.2 6.5 - 8.0 g/dL [facility] ALBUMIN 3.9 3.9 - 4.8 g/dL [facility] GLOBULIN 3.3 1 - 4.8 g/dL [facility] A/G Ratio 1.18 1.00 - 4.80 RATIO [facility] Blood 02/04/2025 5:51 PM EDT 02/04/2025 5:56 PM EDT us Jane Baldwin MD, PhD LAB BLOOD BKR ORDER JASSI Final Result [facility] [address] [place] [address] * CBC and differential (02/04/2025 5:51 PM EDT) WBC 10.84 4.00 - 11.00 K/uL [facility] RBC 4.56 4.00 - 5.20 M/uL [facility] HGB 13.6 12.0 - 16.0 g/dL [facility] HCT 41.6 36.0 - 46.0 % [facility] PLT 215 150 - 450 K/uL [facility] MCV 91.2 80.0 - 100.0 fL [facility] MCH 29.8 27.0 - 31.0 pg [facility] MCHC 32.7 32.0 - 36.0 g/dL [facility] RDW 12.9 11.5 - 14.5 % [facility] MPV 9.8 8.4 - 12.0 fL [facility] NRBC 0.00 0.00 /100 WBCs [facility] ABSOLUTE NRBC 0.00 0.00 K/uL [facility] DIFF METHOD Auto [facility] NEUTS 63.1 48.0 - 76.0 % [facility] LYMPHS 28.3 18.0 - 41.0 % [facility] MONOS 7.3 4.0 - 11.0 % [facility] EOS 0.6 0.0 - 5.0 % [facility] BASOS 0.4 0.0 - 1.5 % [facility] Granulocytes, immature (%) 0.3 0.0 - 0.9 % [facility] ABSOLUTE NEUTS 6.85 1.92 - 7.60 K/uL [facility] ABSOLUTE LYMPHS 3.07 0.72 - 4.10 K/uL [facility] ABSOLUTE MONOS 0.79 0.16 - 1.10 K/uL [facility] ABSOLUTE EOS 0.06 0.00 - 0.50 K/uL [facility] ABSOLUTE BASOS 0.04 0.00 - 0.15 K/uL [facility] Granulocytes, immature 0.03 0.00 - 0.09 K/uL [facility] Blood 02/04/2025 5:51 PM EDT 02/04/2025 5:56 PM EDT us Jane Baldwin MD, PhD LAB BLOOD BKR ORDER JASSI Final Result Performing Organization Address City/[facility]/ZIP Co de Phone Number [address] [address] * Troponin (02/04/2025 5:51 PM EDT) Pathologist [facility] Troponin-T, HS Gen5 <6 0 - 9 ng/L [facility] Blood 02/04/2025 5:51 PM EDT 02/04/2025 5:56 PM EDT Jane Baldwin MD, PhD LAB BLOOD BKR ORDER JASSI Final Result [address] [address] * Basic metabolic panel (02/04/2025 5:51 PM EDT) SODIUM 140 133 - 146 mmol/L [facility] CHLORIDE 105 96 - 108 mmol/L [facility] POTASSIUM 4.2 3.3 - 5.1 mmol/L [facility] CO2 25 21 - 35 mmol/L [facility] BUN 14 6 - 19 mg/dL [facility] CREATININE 0.50 0.5 - 1.5 mg/dL [facility] GLUCOSE 91 70 - 99 mg/dL [facility] CALCIUM 9.1 8.4 - 10.3 mg/dL [facility] EGFR 119 >59 mL/min/1.7 3m2 [facility] Comment:Estimated glomerular filtration rate calculated using the CKD-EPI refit equation. ANION GAP 14 10 - 20 mmol/L [facility] Blood 02/04/2025 5:51 PM EDT 02/04/2025 5:56 PM EDT us Jane Baldwin MD, PhD LAB BLOOD BKR ORDER JASSI Final Result [facility] [address] [place] [address] * ECG 12-LEAD (02/04/2025 2:04 PM EDT) Ventricular Rate EKG/MIN 79 BPM [facility] Atrial Rate 79 BPM [facility] [place] Interval 142 ms [facility] QRS Duration 76 ms [facility] QT Interval 392 ms [facility] QTC Interval 449 ms [facility] P [place] 54 degrees [facility] R Wave [place] 41 degrees [facility] T Wave [place] 41 degrees [facility] 02/04/2025 2:04 PM EDT 02/05/2025 9:06 AM EDT Narrative [facility] - 02/05/2025 9:06 AM EDT Normal sinus rhythm Possible Left atrial enlargement Borderline ECG No previous ECGs available Confirmed by Sharif Arce ([id number]) on 02/05/2025 9:06:03 AM us Rick Obrien MD ECG ORDERABLES Final Result [facility] from Last 3 Months Insurance [facility] [place] [address] [place] [address] [place] [address] [place] [address] [place] [address] [place] [address] [place] [place] [address] ACO Care Teams Business Support Administrator Relationship Specialty Start Date End Date Denise Dsouza MD [address] [place] [address] PCP - General Internal Medicine 02/04/25 Additional Source Comments The information contained in this document represents components of the legal health record. It is not the complete legal health record.[facility]
--- OUTSIDE RECORDS SUMMARY | 2025-04-02 17:02 | XMS_ITS | Clinical Summary ---
Author Organization [facility] it Address [address] [place] [address] Care Team Providers Care Manager Regional Sales Name Role Phone Unavailable Primary Care Provider [...]
--- OUTSIDE RECORDS SUMMARY | 2025-04-02 17:02 | XMS_ITS | Clinical Summary ---
Author Organization [email or web address] Address [address] [place] [address] 7[address] [place] [address] Care Team Providers Care Position Clerk Name Role Phone Unavailable Primary Care Provider [...] 2001 Cervical Cancer Screening 2010 HPV/Cotest 2010 Dental Oral Exam 07/22/2023 01/20/2023 Dental Prophylaxis 08/17/2023 02/14/2023 Hepatitis B Vaccines (2 of 2 - CpG 2-dose series) 08/24/2023 07/27/2023 Dental X-Ray: Bitewings 01/22/2024 01/20/2023 Tobacco Screening 02/15/2024 02/14/2023 Mammogram 09/22/2024 09/22/2022 COVID-19 Vaccine (1 - season) 2025 DTaP/Tdap/Td Vaccines (2 - Td [...] Most Recently Relevant to Health Maintenance Insurance [facility] STANDARD DENTAL-[facility] MEDICAID STAND ADULT
== END 2025-04-02 13:59 | disposition home or self-care (01) ==
LOC: HO.LAB 13:58
PROVIDERS: PCP Internal Medicine; Visit Provider Internal Medicine
DX: G43.109 Migraine with aura, not intractable, without status migrainosus (principal); E78.5 Hyperlipidemia, unspecified; E55.9 Vitamin D deficiency, unspecified; D64.9 Anemia, unspecified
CPT/HCPCS: 36415; 80053; 80061; 82306; 83540; 85025